=== PATIENT | male | born 1960 | race Caucasian/White ===

== ENCOUNTER 2016-08-02 15:01 | Emergency (ER) | payer OTHER ==
[~2016-08-02 15:01] MED LIST: AMLODIPINE BESY10 M1 PO; BACTRIM DS TAB1 EACH PO; MEDROL4 M2 PO; METOPROLOL TAR100 M1 PO; NAPROXEN500 M2 PO; NASAL DECONGEST30 M2 PO; TEGRETOL XR200 M1 PO; VITAMIN B-1100 MG PO
--- NOTE | 2016-08-02 15:03 | ED AMS/SEIZURE/WEAK/DIZZY ---
History of Present Illness General Chief Complaint: Seizure Stated Complaint: BIBA FOR SEIZURE Source: patient, old records, EMS Exam Limitations: no limitations Vital Signs & Intake/Output Vital Signs & Intake/Output Vital Signs Date Time Temp Pulse Resp B/P B/P Pulse O2 O2 Flow FiO2 Mean Ox Delivery Rate 08/02 1712 98.6 99 16 149/83 08/02 1710 97.6 99 16 149/83 98 Nasal 2.0L Cannula 08/02 1602 99 Nasal 2.0L Cannula 08/02 1600 107 16 170/79 98 Nasal 2.0L Cannula 08/02 1520 Room Air 08/02 1505 96.6 107 20 162/80 96 Room Air Allergies Coded Allergies: phenytoin (From DILANTIN) (Severe, MIGRAINES 03/31/16) Reconcile Medications Amlodipine Besylate 10 MG TABLET 1 TAB PO DAILY BP (Reported) Carbamazepine (Tegretol XR) 200 MG TAB.ER.12H 1 TAB PO BID BP (Reported) Methylprednisolone. (Medrol) 4 MG TAB.DS.PK 1 DP PO AD PAIN 6 on day 1 then reduce by one tablet daily until gone Metoprolol Tartrate 100 MG TABLET 1 TAB PO BID BP (Reported) Naproxen 500 MG TABLET 1 TAB PO BID GERD (Reported) Pseudoephedrine HCl (Nasal Decongestant) 30 MG CAPSULE 1 TAB PO Q6P PRN NASAL CONGESTION Sulfamethoxazole/Trimethoprim (Bactrim Ds Tablet) 800 MG-160 MG TABLET 1 TAB PO BID sinuses Thiamine HCl (Vitamin B-1) 100 MG TABLET 1 TAB PO DAILY VITAMIN (Reported) Triage Nurses Notes Reviewed? yes Onset: Abrupt Duration: minute(s):, better Timing: recent history Injury Environment: street Severity: mild, moderate Severity Numbers: 5 No Modifying Factors: none Associated Symptoms: DENIES HPI: 55-year-old male with known seizure disorder on Tegretol Depakote presents after he had a witnessed seizure on a bus. On arrival patient has no recollection of this incident. He denies any bladder incontinence he did not bite his tongue he is otherwise without any complaints on arrival. No chest pain shortness of breath headache vision changes. Patient cannot recall when his last seizure was ceased states she's been compliant with his medication. He smokes and his last drink of alcohol was last night. No history of withdrawal seizures in the past. No abdominal pain he is otherwise without any complaints at this time. No recent fall or head trauma (KATHYA BOUCHER) Past History Travel History Traveled to [place] past 21 day No Medical History Any Pertinent Medical History? 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 No (KATHYA BOUCHER) Review of Systems Review of Systems Constitutional: Reports: see HPI. All Other Systems: Reviewed and Negative Comments Review of systems: See HPI, All other systems negative. Constitutional, no chills no fever, no malaise HEENT: No visual changes no sore throat no congestion, no ear pain Cardiovascular: No chest pain , no palpitation Skin: no rashes, no change in skin Respiratory: No dyspnea no cough no sputum no hemoptysis GI: No nausea no vomiting, no diarrhea, : No dysuria Muscle skeletal: No joint pain, no joint swelling, no back pain, no neck pain, Neurologic: No numbness no confusion, no headache Psych: No stresS Heme/endocrine: No bruising Immunology: No lymphadenopathy (KATHYA BOUCHER) Physical Exam Physical Exam General Appearance: well developed/nourished, alert, awake Comments: Well-developed well-nourished person in no acute distress HEENT: Normal EENT exam; PERRL, EOMI, no nystagmus. HEAD is atraumatic. moist mucous membranes. Neck: Supple, no lymphadenopathy, normal range of motion without pain or tenderness Back: Nontender, no CVA tenderness. Full range of motion Cardiovascular: Regular rate and rhythms no murmurs rubs or gallops, normal JVP Respiratory: Chest nontender.There were no bony deformities, no asymmetry. No respiratory distress. Patient speaking in full complete sentences. Breath sounds clear to auscultation bilaterally: NO W/R/R Abdomen: Soft, nontender nondistended, no appreciable organomegaly. Normal bowel sounds. No rebound/guarding, No appreciable enlargement of the abdominal aorta, No ascites. Extremity: No edema, full range of motion of extremities, normal and equal pulses bilaterally, 5 out of 5 strength noted to bilateral upper and lower extremities Neuro: Alert oriented x3, motor sensory normal, cranial nerves II through XII grossly intact. There were no obvious focal neurologic abnormalities. Skin: No appreciable rash on exposed skin, skin is warm and dry. Psych: Mood and affect is normal, memory and judgment is normal. Core Measures ACS in differential dx? No CVA/TIA Diagnosis: No Severe Sepsis Present: No Septic Shock Present: No (KATHYA BOUCHER) Progress Differential Diagnosis: arrythmia, alcohol intoxication, CVA/stroke, electrolyte imbalance, hypoglycemia, meningitis, subarachnoid Hem., aspiration pna Diagnostic Imaging: Viewed by Me: Radiology Read. Discussed w/RAD: Radiology Read. Radiology Impression: PATIENT: KATY REDMOND PRESENT AGE: 55 PATIENT ACCOUNT NO: [id number] : 61 LOCATION: [facility] ORDERING PHYSICIAN: KATHYA ROBERTS SERVICE DATE: 08/02/16 EXAM TYPE: RAD - XRY- PORTABLE CHEST XRAY EXAMINATION: XR PORTABLE CHEST CLINICAL INFORMATION: Seizure COMPARISON: None TECHNIQUE: Portable AP view of the chest was obtained. FINDINGS : No convincing evidence for an acute process. No are grossly clear. Low lung volumes. IMPRESSION: Low lung volumes. No convincing evidence for an acute process DICTATED BY: CASPER GARCIA MD DATE/TIME DICTATED:08/02/161655 BARREL PAINTER:[place] DATE/TIME TRANSCRIBED:08/02/161655 CONFIDENTIAL, DO NOT COPY WITHOUT APPROPRIATE AUTHORIZATION. <Electronically signed in Other Vendor System> SIGNED BY: CASPER GARCIA MD 08/02/16 1700 Initial ED EKG: none Hand-Off Endorsed To: JUAN DUQUE MD Endorsed Time: 1999 Pending: consult, labs (KATHYA BOUCHER) Plan of Care: Orders Procedure Date/time Status Regular Diet 08/03 B Active CIWA 08/02 1732 Active URINE DRUG SCREEN FOR ER ONLY 08/02 1624 Active Add-on Test (ER Only) 08/02 1513 Active FingerStick- Glucose 08/02 1512 Active Saline Lock 08/02 1507 Active TEGRETOL LEVEL 08/02 1507 Complete PROLACTIN 08/02 1507 Complete ETHANOL 08/02 1507 Complete DEPAKOTE LEVEL 08/02 1507 Complete COMPREHENSIVE METABOLIC PANEL 08/02 1507 Complete CBC WITHOUT DIFFERENTIAL 08/02 1507 Complete Current Medications Sig/Festus Start time Last Medication Dose Stop Time Status Admin Phenytoin 1,900 MG ONCE ONE 08/02 1744 CAN (Dilantin) 08/02 1745 Laboratory Tests 08/02/16 1515: Anion Gap 13, Estimated GFR > 60, BUN/Creatinine Ratio 27.3 H, Glucose 138 H, Calcium 9.2, Total Bilirubin 0.6, AST 42, ALT 53, Alkaline Phosphatase 88, Total Protein 7.5, Albumin 4.4, Globulin 3.1, Albumin/Globulin Ratio 1.4, Prolactin 24.0 H, CBC w Diff NO MAN DIFF REQ, RBC 3.77 L, MCV 99.9 H, MCH 34.5 H, RDW 13.6, MPV 6.8 L, Gran % 69.9, Lymphocytes % 15.1 L, Monocytes % 14.1 H, Eosinophils % 0.6, Basophils % 0.3, Absolute Granulocytes 4.1, Absolute Lymphocytes 0.9 L, Absolute Monocytes 0.8 H, Absolute Eosinophils 0, Absolute Basophils 0, PUBS MCHC 34.5, Valproic Acid < 10.0 L, Carbamazepine < 3.0 L, Serum Alcohol < 10.0 Labs ordered old for continued IV fluids RUNNING, case d/w dr duque 08/02/2016 3:57:53 PM patient was noted to be seizing Ativan 2 mg IV ordered, chest x-ray ordered. Pt came to post ictal within a [address] duque at bedside 08/02/2016 4:52:02 PM patient has had no further seizure activity at this time pending x-ray]]] Call placed to the patient's neurologist DR hutchison 08/02/2016 6:09:56 PM still pending callback from neurology 08/02/2016 6:53:15 PM case discussed with Dr. SEGURA covering for Dr. HUTCHISON- advised to load with 1000 mg Depakote if patient is stable enough to be discharged home 2000 pt resting comfrotably, will continue tomonoitor as pt live alone at home, case d/w and signed out to dr duque pending reeval PATIENT: KATY REDMOND PRESENT AGE: 55 PATIENT ACCOUNT NO: [id number] : 61 LOCATION: [facility] ORDERING PHYSICIAN: KATHYA ROBERTS SERVICE DATE: 04/19/17-1556 EXAM TYPE: RAD - XRY-PORTABLE CHEST XRAY EXAMINATION: XR PORTABLE CHEST CLINICAL INFORMATION: Seizure COMPARISON: None TECHNIQUE: Portable AP view of the chest was obtained. FINDINGS: No convincing evidence for an acute process. No are grossly clear. Low lung volumes. IMPRESSION: Low lung volumes. No convincing evidence for an acute process DICTATED BY: CASPER GARCIA MD DATE/TIME DICTATED:08/02/161655 BARREL PAINTER:[place] DATE/TIME TRANSCRIBED:08/02/161655 CONFIDENTIAL, DO NOT COPY WITHOUT APPROPRIATE AUTHORIZATION. <Electronically signed in Other Vendor System> SIGNED BY: CASPER GARCIA MD 08/02/16 1700 (KATHYA BOUCHER) 7:53 PM FOR REEVALUATION AFTER JACKY ATINGE. (JUAN DUQUE MD) Departure Departure Disposition: HOME OR SELF CARE Condition: Stable Clinical Impression Primary Impression: Seizure Referrals: UNKNOWN Additional Instructions: Follow-up with your neurologist tomorrow. Take your medication as prescribed. Return anytime sooner with any concerns. Departure Forms: Customer Survey General Discharge Information (KATHYA BOUCHER) PA/ENVIRONMENTAL TECH Co-Sign Statement Statement: ED Attending supervision documentation- [X] I saw and evaluated the patient. I have also reviewed all the pertinent lab results and diagnostic results. I agree with the findings and the plan of care as documented in the PA's/ENVIRONMENTAL TECH's documentation. [X] I have reviewed the ED Record and agree with the PA's/ENVIRONMENTAL TECH's documentation. [] Additions or exceptions (if any) to the PAs/ENVIRONMENTAL TECH's note and plan are summarized below: [] (JUAN DUQUE MD)
[2016-08-02 16:13] LABS: ABSOLUTE BASOPHIL COUNT 0 /CUMM (0.0-0.2); ABSOLUTE EOSINOPHIL COUNT 0 /CUMM (0.0-0.7); ABSOLUTE GRANULOCYTE CT 4.1 /CUMM (1.4-6.5); ABSOLUTE LYMPH COUNT 0.9 /CUMM (1.2-3.4); ABSOLUTE MONOCYTE COUNT 0.8 /CUMM (0.10-0.60); BASOPHIL % 0.3 % (0.0-2.0); EOSINOPHIL % 0.6 % (0-5); GRANULOCYTE % 69.9 % (42.2-75.2); HEMATOCRIT 37.7 % (42-52); MEAN CORPUSCULAR HGB 34.5 PG (27.0-31.0); MEAN CORPUSCULAR HGB CONC 34.5 G/DL (33.0-37.0); MEAN CORPUSCULAR VOLUME 99.9 FL (80.0-94.0); MEAN PLATELET VOLUME 6.8 FL (7.4-10.4); PLATELET COUNT 313 /CUMM (130-400); RBC DISTRIBUTION WIDTH 13.6 % (11.5-14.5); RED BLOOD CELL CT 3.77 /CUMM (4.70-6.10); WHITE BLOOD CELL COUNT 5.9 /CUMM (4.8-10.8)
--- NOTE | 2016-08-02 17:00 | RADIOLOGY REPORT ---
EXAMINATION: XR PORTABLE CHEST CLINICAL INFORMATION: Seizure COMPARISON: None TECHNIQUE: Portable AP view of the chest was obtained. FINDINGS: No convincing evidence for an acute process. No are grossly clear. Low lung volumes. IMPRESSION: Low lung volumes. No convincing evidence for an acute process
[2016-08-02 21:39] VITALS: BP 147/82
== END 2016-08-02 22:44 ==
LOC: ERH 15:01
PROVIDERS: Physician Assistant Medical
DX: R56.9 Unspecified convulsions (principal)
CPT/HCPCS: 80307; 96361; 96374; G0480

== ENCOUNTER 2016-08-22 09:56 | Inpatient (IN) | payer OTHER ==
[~2016-08-22] VITALS: Ht 172.7 cm; Wt 102.1 kg
[2016-08-22] VITALS (9 sets, daily range): BP systolic 135–172; BP diastolic 83–102
--- NOTE | 2016-08-22 10:08 | NUR ---
PT TO ED C/O "I FEEL LIKE MY HEAD IS IN A FOG". ALSO C/O FEELING SHAKY. PT WITH H/O SEIZURES AND HEAVY ETOH USE. PT STATES LAST DRINK WAS YESTERDAY. PT IS SCHEDULED TO GO TO DETOX TOMORROW.
--- NOTE | 2016-08-22 10:17 | NUR ---
PT AMBULATED TO ROOM 8 WITH STRONG STEADY GAIT. SECURITY AT BEDSIDE FOR WANDING AND PT CHANGING INTO BLUE SCRUBS
--- NOTE | 2016-08-22 10:22 | NUR ---
DR LIN AT BEDSIDE
--- NOTE | 2016-08-22 10:27 | ED AMS/SEIZURE/WEAK/DIZZY ---
History of Present Illness General Chief Complaint: General Adult Stated Complaint: SAMUEL,SHAKING Source: patient Exam Limitations: confusion Vital Signs & Intake/Output Vital Signs & Intake/Output Vital Signs Date Time Temp Pulse Resp B/P B/P Pulse O2 O2 Flow FiO2 Mean Ox Delivery Rate 08/22 1409 96.8 65 20 143/92 95 Room Air 08/22 1258 96.6 67 20 135/89 94 Room Air 08/22 1255 98.3 67 20 135/89 / 1144 Room Air 08/22 1143 96.5 73 14 143/89 08/22 1142 96.5 73 14 143/89 94 Room Air 08/22 1048 98.9 68 18 155/102 08/22 1024 68 155/102 08/22 1007 97.1 66 20 169/108 97 Room Air Allergies Coded Allergies: phenytoin (From DILANTIN) (Severe, MIGRAINES 03/31/16) Reconcile Medications Amlodipine Besylate (Norvasc) 10 MG TABLET 1 TAB PO DAILY htn (Reported) Divalproex Sodium (Depakote ER) 500 MG TAB.ER.24H 750 MG PO QPM seizures ( Reported) Gabapentin (Neurontin) 300 MG CAPSULE 1 CAP PO TID NEUROPATHY (Reported) Ketoconazole 2 % CREAM..G. 1 KARI TOP BID SKIN HEALTH (Reported) apply to affected area(s) Lorazepam (Ativan) 0.5 MG TABLET 1 TAB PO SI Alcohol withdrawal Please take 1 mg (2 tabs) on 08/25/16 PM take 0.5 mg (1 tab) on 08/26/16 am take 0.5 mg (1 tab) on 08/26/16 PM take 0.5 mg (1 tab) on 08/27/16 then stop Metoprolol Tartrate 100 MG TABLET 1 TAB PO BID BP (Reported) Naproxen 500 MG TABLET 1 TAB PO BID GERD (Reported) Pseudoephedrine HCl (Nasal Decongestant) 30 MG CAPSULE 1 TAB PO Q6P PRN NASAL CONGESTION Triage Note: PT TO ED C/O "I FEEL LIKE MY HEAD IS IN A FOG". ALSO C/O FEELING SHAKY. PT WITH H/O SEIZURES AND HEAVY ETOH USE. PT STATES LAST DRINK WAS YESTERDAY. PT IS SCHEDULED TO GO TO DETOX TOMORROW. Triage Nurses Notes Reviewed? yes Onset: Abrupt Duration: day(s): (1) Timing: multiple episodes today Injury Environment: home Severity: mild, moderate No Modifying Factors: none Associated Symptoms: SHAKING, NAUSEA, VOMITING, CONFUSION HPI: 55-year-old male history of hypertension, TBI, seizure disorder, alcohol abuse presents from [facility] for chief complaint of not feeling well. He reports feeling fine, having episodes of vomiting at home. He feels very shaky. Last alcoholic drink was yesterday afternoon. He states he's been drinking heavier in the last week. He drinks 4 to wipe. Per day. Denies any other alcohol use. Denies any drug use. He is not suicidal or homicidal. He is alert awake and oriented to day. He is aware of his birthday but states that he just doesn't feel well. He has not gone without alcohol was 4-5 years. He is due to go to inpatient detox at [place] tomorrow. He reports having falls in the last several weeks but doesn't remember how many or when. Past History Travel History Traveled to [facility] past 21 day No Medical History Any Pertinent Medical History? 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 No Review of Systems Review of Systems Constitutional: Denies: see HPI, fever. EENTM: Reports: no symptoms. Respiratory: Denies: cough, sputum production. Cardiovascular: Denies: chest pain, palpitations, peripheral edema. GI: Reports: nausea, vomiting. Denies: abdominal pain. Genitourinary: Denies: dysuria, frequency. Musculoskeletal: Denies: back pain. Skin: Reports: no symptoms. Neurological/Psychological: Reports: anxiety, depressed. Hematologic/Endocrine: Denies: bruising, bleeding, polyuria, polydipsia. Immunologic/Allergic: Denies: splenectomy. All Other Systems: Reviewed and Negative Physical Exam Physical Exam General Appearance: well developed/nourished, alert, awake, anxious, mild distress, moderate distress, obese Head: atraumatic, normal appearance Eyes: Bilateral: normal appearance, PERRL. Ears, Nose, Throat: normal pharynx, hearing grossly normal Neck: normal inspection, supple, full range of motion Respiratory: normal breath sounds, chest non-tender, no respiratory distress Cardiovascular: regular rate/rhythm Core Measures ACS in differential dx? No CVA/TIA Diagnosis: No Severe Sepsis Present: No Septic Shock Present: No Progress Differential Diagnosis: arrythmia, alcohol intoxication, CVA/stroke, drug intoxication, intracranial Hem., intracranial mass/tumor, seizure disorder, ALCOHOL WITHDRAWAL, SUBDURAL Plan of Care: Orders Procedure Date/time Status Heart Healthy Diet 08/22 D Active Patient Data 08/22 1454 Active Admit to inpatient 08/22 1447 Active Vital Signs 08/22 1447 Active Code Status 08/22 1447 Active Pathway - chart 08/22 1443 Active Add-on Test (ER Only) 08/22 1208 Active CASE MANAGEMENT CONSULT 08/22 1135 Active CIWA 08/22 1049 Active PROLACTIN 08/22 1045 Complete EKG 08/22 1044 Active PARTIAL THROMBOPLASTIN TIME 08/22 1028 Complete PROTHROMBIN TIME 08/22 1028 Complete Telemetry/Count Team Clerk 08/22 1027 Active URINE DRUGS OF ABUSE 08/22 1027 Active URINALYSIS 08/22 1027 Active TROPONIN LEVEL 08/22 1027 Complete AMMONIA 08/22 1027 Complete MAGNESIUM 08/22 1027 Complete ETHANOL 08/22 1027 Complete DEPAKOTE LEVEL 08/22 1027 Complete COMPREHENSIVE METABOLIC PANEL 08/22 1027 Complete CREATINE PHOSPHOKINASE 08/22 1027 Complete CBC WITHOUT DIFFERENTIAL 08/22 1027 Complete Current Medications Sig/Festus Start time Last Medication Dose Stop Time Status Admin Lorazepam 1 MG Q12H 08/24 0000 UNVr (Ativan) 08/24 1201 Thiamine HCl 100 MG DAILY 08/23 1000 UNVr (Vitamin B1) 08/25 1001 Lorazepam 1.5 MG Q6 08/23 0600 UNVr (Ativan) 08/23 1801 Folic Acid 1 MG DAILY 08/22 1443 UNVr (Folic Acid) 08/24 1001 Lorazepam 2 MG Q6 08/22 1443 UNVr (Ativan) 08/23 0001 Multivitamins 1 TAB DAILY 08/22 1443 UNVr (Theragran Vitamins) Magnesium Sulfate 1 GM ONCE ONE 08/22 1130 AC 08/22 (Mag Sulfate in D5) 08/22 1529 1205 Dextrose/Water 100 ML (D5W) Laboratory Tests 08/22/16 1045: Anion Gap 9, Estimated GFR > 60, BUN/Creatinine Ratio 18.8, Glucose 121 H, Calcium 9.6, Magnesium 1.4 L, Total Bilirubin 0.5, AST 42, ALT 51, Alkaline Phosphatase 86, Ammonia < 9 L, Creatine Kinase 180 H, Troponin I < 0.01, Total Protein 6.4, Albumin 3.7, Globulin 2.7, Albumin/Globulin Ratio 1.4, Prolactin 7.1, PT 10.3, INR 0.98, APTT 30, CBC w Diff NO MAN DIFF REQ, RBC 3.51 L, MCV 99.3 H, MCH 34.8 H, RDW 14.4, MPV 6.6 L, Gran % 69.9, Lymphocytes % 15.8 L, Monocytes % 10.4 H, Eosinophils % 3.7, Basophils % 0.2, Absolute Granulocytes 3.7, Absolute Lymphocytes 0.8 L, Absolute Monocytes 0.6, Absolute Eosinophils 0.2, Absolute Basophils 0, PUBS MCHC 35.0, Valproic Acid 21.8 L, Serum Alcohol < 10.0 08/22/16 1028: Troponin I Cancelled, Valproic Acid Cancelled 11:45 AM [facility] CONSULT PLACED FOR INPATIENT DETOX. 1:12 PM [facility]. PATIENT STILL FEELS FOGGY. LESS TREMORS. (RILEY GONSALEZ,JUAN) Diagnostic Imaging: Viewed by Me: CT Scan. Discussed w/RAD: CT Scan. Radiology Impression: PATIENT: KATY REDMOND PRESENT AGE: 55 PATIENT ACCOUNT NO: [id number] : 61 LOCATION: [facility] ORDERING PHYSICIAN: JUAN LIN MD SERVICE DATE: 08/22/16 EXAM TYPE: CAT - CT HEAD WO IV CONTRAST EXAMINATION: CT HEAD WITHOUT CONTRAST CLINICAL INFORMATION: Altered mental status. Alcohol abuse. Reported falls. Rule out intracranial bleed. COMPARISON: None TECHNIQUE: Contiguous axial imaging was performed from the skull base to vertex without intravenous administration of contrast. DLP: 627 mGy-cm FINDINGS: There is no evidence of acute intracranial hemorrhage or territorial infarction. No abnormal mass effect or midline shift is seen. Strange to white matter differentiation is well preserved. No extra-axial fluid collections are identified. Chronic inflammation is present at the left inferior frontal lobe. Small focus of chronic encephalomalacia is also present at the right occipital lobe. Aside from very mild ex vacuo dilatation of the anterior horn of the left lateral ventricle, the ventricles are normal in size. Calcific atherosclerosis is present within the cavernous segments of the internal carotid arteries. Chronic postsurgical changes are present at the frontal sinuses bilaterally. Frontal sinuses and left ethmoid air cells are partially opacified. There is chronic periosteal thickening in this region. There is a small defect in the left lamina papyracea. There is a healed fracture at the left orbital roof. Mastoid air cells are clear on the right. There is limited pneumatization of the left mastoid air cells. No acute fractures are identified. Mild soft tissue thickening over the scalp posteriorly is also likely chronic in nature. No acute scalp contusions are identified. IMPRESSION: No acute intracranial pathology. Chronic encephalomalacia in the left inferior frontal lobe with postsurgical changes at the frontal lobes and healed fractures of the left orbital roof and lamina papyracea. Chronic mucosal thickening and surrounding osteitis are evident at the left ethmoid air cells and at the frontal sinuses. DICTATED BY: PETAR LAWRENCE MD DATE/TIME DICTATED:08/22/161112 CNMT:[place] DATE/TIME TRANSCRIBED:08/22/161112 CONFIDENTIAL, DO NOT COPY WITHOUT APPROPRIATE AUTHORIZATION. <Electronically signed in Other Vendor System> SIGNED BY: PETAR LAWRENCE MD 08/22/161122 Initial ED EKG: NSR, artifact baseline Rhythm Strip: normal sinus rhythm Departure Departure Disposition: STILL A PATIENT Condition: Stable Clinical Impression Primary Impression: Alcohol withdrawal Referrals: ROBINA CAN MD (PCP/Family) Departure Forms: Customer Survey General Discharge Information Prescriptions: Current Visit Scripts Lorazepam (Ativan) 1 TAB PO SI #5 TAB Please take 1 mg (2 tabs) on 08/25/16 PM take 0.5 mg (1 tab) on 08/26/16 am take 0.5 mg (1 tab) on 08/26/16 PM take 0.5 mg (1 tab) on 08/27/16 then stop Admission Note Spoke With: ANDRE BOYD MD Documentation of Exam: Documentation of any treatments & extenuating circumstances including Concerns Regarding Discharge (functional status, medication knowledge or non-compliance, living conditions, etc.) that warrant an admission rather than observation: [ CIWA MONITORING, ATIVAN TAPER, DEPAKOTE ADMINISTRATION, SEIZURE PRECAUTIONS, ] Critical Care Note Critical Care Note Critical Care Time: mins:
--- NOTE | 2016-08-22 10:32 | NUR ---
PT TO CAT SCAN VIA [facility]
--- NOTE | 2016-08-22 10:45 | NUR ---
IV EST #20 LH PT MEDICATED PER EMAR WITH ATIVAN AND ZOFRAN
--- NOTE | 2016-08-22 10:50 | NUR ---
SAAD DRAWN AND SENT TO LAB
[2016-08-22 11:03] LABS: ABSOLUTE BASOPHIL COUNT 0 /CUMM (0.0-0.2); ABSOLUTE EOSINOPHIL COUNT 0.2 /CUMM (0.0-0.7); ABSOLUTE GRANULOCYTE CT 3.7 /CUMM (1.4-6.5); ABSOLUTE LYMPH COUNT 0.8 /CUMM (1.2-3.4); ABSOLUTE MONOCYTE COUNT 0.6 /CUMM (0.10-0.60); BASOPHIL % 0.2 % (0.0-2.0); EOSINOPHIL % 3.7 % (0-5); GRANULOCYTE % 69.9 % (42.2-75.2); HEMATOCRIT 34.9 % (42-52); MEAN CORPUSCULAR HGB 34.8 PG (27.0-31.0); MEAN CORPUSCULAR VOLUME 99.3 FL (80.0-94.0); MEAN PLATELET VOLUME 6.6 FL (7.4-10.4); PLATELET COUNT 177 /CUMM (130-400); RBC DISTRIBUTION WIDTH 14.4 % (11.5-14.5); RED BLOOD CELL CT 3.51 /CUMM (4.70-6.10); WHITE BLOOD CELL COUNT 5.3 /CUMM (4.8-10.8)
[2016-08-22 11:15] LABS: PT 10.3 SEC (9.4-12.5); PTT 30 SEC (25-37)
--- NOTE | 2016-08-22 11:23 | CT SCAN REPORT ---
EXAMINATION: CT HEAD WITHOUT CONTRAST CLINICAL INFORMATION: Altered mental status. Alcohol abuse. Reported falls. Rule out intracranial bleed. COMPARISON: None TECHNIQUE: Contiguous axial imaging was performed from the skull base to vertex without intravenous administration of contrast. DLP: 627 mGy-cm FINDINGS: There is no evidence of acute intracranial hemorrhage or territorial infarction. No abnormal mass effect or midline shift is seen. Strange to white matter differentiation is well preserved. No extra-axial fluid collections are identified. Chronic inflammation is present at the left inferior frontal lobe. Small focus of chronic encephalomalacia is also present at the right occipital lobe. Aside from very mild ex vacuo dilatation of the anterior horn of the left lateral ventricle, the ventricles are normal in size. Calcific atherosclerosis is present within the cavernous segments of the internal carotid arteries. Chronic postsurgical changes are present at the frontal sinuses bilaterally. Frontal sinuses and left ethmoid air cells are partially opacified. There is chronic periosteal thickening in this region. There is a small defect in the left lamina papyracea. There is a healed fracture at the left orbital roof. Mastoid air cells are clear on the right. There is limited pneumatization of the left mastoid air cells. No acute fractures are identified. Mild soft tissue thickening over the scalp posteriorly is also likely chronic in nature. No acute scalp contusions are identified. IMPRESSION: No acute intracranial pathology. Chronic encephalomalacia in the left inferior frontal lobe with postsurgical changes at the frontal lobes and healed fractures of the left orbital roof and lamina papyracea. Chronic mucosal thickening and surrounding osteitis are evident at the left ethmoid air cells and at the frontal sinuses.
--- NOTE | 2016-08-22 12:37 | NUR ---
08/22 CASE MGMT- ATTEMPTED REQUEST FOR [facility] AUTH ONLINE X2 WITH NO SUCCESS, RUNNING VERY SLOW AND UNABLE TO UPLOAD AND FINISH KARI. CALL PLACED TO [facility] AND SPOKE WITH LEILA STATES THEY ARE EXPERIENCING AN ISSUE WITH [facility] WEBSITE AND ARE IN THE PROCESS OF FIXING IT AND ARE REQUESTING PROVIDERS TO WAIT UNTIL WEBSITE IS FIXED. LEILA STATES CAN TRY WEBSITE AGAIN IN A FEW HOURS AND IF ISSUE STILL PERSISTS CAN CONTACT [facility] AGAIN. CASE MGMT WILL CONTINUE TO FOLLOW.
--- NOTE | 2016-08-22 13:46 | NUR ---
CT P AUTH DONE AWAITING AUTH APPROVAL. AWAITING APPROVAL. CASE MGMT WILL CONTINUE TO FOLLOW.
--- NOTE | 2016-08-22 14:04 | NUR ---
UNABLE TO VERIFY HOME MEDS DUE TO CURRENT CIRCUMSTATNCES
--- NOTE | 2016-08-22 14:14 | NUR ---
PT MEDICATED WITH ATIVAN 1MG PO PER EMAR. PT REPORTS BEING THIRSTY. THIS RN PROVIDED PT WITH WATER.
--- NOTE | 2016-08-22 14:21 | NUR ---
THIS RN CALLED DIETARY TO ORDER PT DIET TRAY
--- NOTE | 2016-08-22 14:39 | NUR ---
08/22 CASE MGMT- PT APPROVED [facility] AUTH #[id number] FOR 6 DAYS FROM 08/22/16 TO 08/27/16. DR LIN AND ADMITTING AWARE.
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
--- NOTE | 2016-08-22 15:04 | NUR ---
PT PROVIDED WITH LUNCH TRAY
--- NOTE | 2016-08-22 15:27 | NUR ---
PT MEDICATED WITH ATIVAN 2MG, MULTI-VITAMIN AND FOLIC ACID. PT EATING HIS LUNCH.
[2016-08-22] MEDS ORDERED: DEPAKOTE ER500 M1 PO (15:51)
[2016-08-22] MEDS ORDERED: NEURONTIN300 M1 PO (16:03)
[2016-08-22] MEDS ORDERED: NORVASC10 M1 PO (16:17)
--- NOTE | 2016-08-22 16:21 | NUR ---
URINE TRIO SENT TO LAB.
--- NOTE | 2016-08-22 17:22 | NUR ---
PT RESTING ON STRETCHER, DENIES ANY NEEDS. VSS, CIWA 4. LOVENOX ADMINISTERED AND ATIVAN 1MG PO GIVEN PER EMAR.
--- NOTE | 2016-08-22 20:17 | NUR ---
PT HAS BED ASSIGNMENT 228-1. RN NOTIFIED.
--- NOTE | 2016-08-22 20:40 | NUR ---
REPORT GIVEN TO BRIGITTE WADDELL TO [facility], [facility] CALLED FOR TRANSPORT.
--- NOTE | 2016-08-22 22:52 | Admission Certification ---
Admission Certification Certification Statement - As attending physician, I certify that at the time of - admission, based on clinical presentation, severity of - symptoms, need for further diagnostic testing and - therapeutic interventions, and risk of adverse outcomes - without in-hospital treatment, in my clinical assessment, - this patient requires an acute hospital stay for a minimum - of two nights or longer. I have also considered psychsocial - factors such as support system, advanced age, financial - issues, cognitive issues, and failed out-patient treatments, - past re-admission history, safety of patient, and lack of - compliance as applicable. Specific rationale supporting this admission is: Patient presents for detox- CIWA 17 and h/o seizure disorder. Admit for alcohol detox, CIWA/Ativan protocol.
[2016-08-23] VITALS (11 sets, daily range): BP systolic 100–180; BP diastolic 60–110
--- NOTE | 2016-08-23 00:19 | NUR ---
PT ARRIVED TO FLOOR AT 2102 VIA STRETCHER. ALERT/ORIENTED CONFUSED AT TIMES. CIWA SCORE 4. FALL PRECAUTIONS IN PLACE, LUNGS CLEAR, ON RA, SKIN INTACT, NO DISTRESS, DENIES CHEST PAIN. NO COMPLIANTS AT THIS TIME, ORIENTED PT TO ROOM, CALL KRUGER AND STAFF. WILL MONITOR.
--- NOTE | 2016-08-23 06:38 | PN- Housestaff ---
REANNA GONSALEZ,MELVINA 08/23/16 0638: Subjective Follow-up For: alcohol detox Subjective: Pt was seen today, not oriented, slow to respond. However he was calm, his ciwa has been 0-3, he received 3 mg of po ativan in total, and has not been needing prn ativan. BP has been on the higher side (180/110), gave his amlodipine early, and told nurse to not give anymore than 10 mg a day. clonidine added. Lopressor was also given. building maintenance worker, Christine, on board, to help us with discharge planning. labs reviewed, k 3.6, mg 1.7. given 1x kdur and mg ox. Review of Systems Constitutional: Reports: see HPI. Objective Last 24 Hrs of Vital Signs/I&O Vital Signs Date Time Temp Pulse Resp B/P B/P Pulse O2 O2 Flow FiO2 Mean Ox Delivery Rate 08/23 0839 68 180/110 08/23 0832 68 180/110 08/23 0826 68 16 180/110 96 Room Air 08/23 0639 65 160/104 08/23 0628 98.1 65 18 160/104 95 Room Air 08/23 0600 64 18 160/104 08/23 0156 97.9 60 18 134/70 95 Room Air 05/ 0000 69 18 146/90 / 2239 69 146/90 / 2235 97.7 69 18 146/90 94 Room Air 08/22 2118 69 16 172/102 / 2109 98.1 69 18 172/102 93 Room Air 08/22 2030 96.8 66 16 142/90 / 2030 96.8 66 18 142/90 95 Room Air 08/22 1722 97.0 75 16 138/83 / 1722 97.0 75 16 138/83 95 Room Air / 1455 96.8 65 20 143/92 05/ 1409 96.8 65 20 143/92 95 Room Air 08/22 1258 96.6 67 20 135/89 94 Room Air / 1255 98.3 67 20 135/89 Intake & Output /10 1600 /10 0800 05/ 0000 Intake Total 200 120 Output Total 400 Balance -200 120 Intake, Oral 200 120 Number 0 0 Bowel Movements Output, Urine 400 Patient 102.058 kg Weight Physical Exam General Appearance: Alert, not oriented, slow to respond Cardiovascular: Regular Rate, Normal S1, Normal S2 Lungs: Clear to Auscultation, Normal Air Movement Abdomen: Normal Bowel Sounds, Soft, No Tenderness Extremities: trace edema on BL lower extremity Current Medications: Current Medications Sig/Festus Start time Last Medication Dose Route Stop Time Status Admin Acetaminophen 650 MG Q6P PRN 08/22 1500 AC PO Acetaminophen/ 1 TAB Q6P PRN 08/23 0537 AC Hydrocodone Bitart PO Acetaminophen/ 1 TAB Q6 08/22 1800 DC Hydrocodone Bitart PO Amlodipine Besylate 10 MG DAILY 08/23 1000 CAN PO Amlodipine Besylate 10 MG DAILY 08/23 1000 AC PO Amlodipine Besylate 10 MG ONCE ONE 08/23 0645 DC 08/23 PO 08/23 0646 0639 Carbamazepine 200 MG BID 08/22 2200 CAN PO Clonidine 0.2 MG TID PRN 08/23 1000 AC PO Divalproex Sodium 750 MG DAILY 08/23 1000 AC 08/23 PO 0832 Divalproex Sodium 750 MG ONCE ONE 08/22 1230 DC 08/22 PO 08/22 1231 1321 Enoxaparin Sodium 0 .STK-MED ONE 08/22 1720 DC SC Enoxaparin Sodium 40 MG DAILY 08/22 1623 AC 08/23 SC 0832 Folic Acid 0 .STK-MED ONE 08/22 1512 DC PO Folic Acid 1 MG DAILY 08/22 1443 AC 08/23 PO 08/24 1001 0832 Gabapentin 300 MG TID 08/22 2200 AC 08/23 PO 0832 Lorazepam 1 MG Q12H 08/24 0000 DC PO 08/24 1201 Lorazepam 1.5 MG Q6 08/23 0600 CAN PO 08/23 1801 Lorazepam 1 MG Q6 08/22 1800 AC 08/23 PO 0532 Lorazepam 0 .STK-MED ONE 08/22 1720 DC PO Lorazepam 0 Q1P PRN 08/22 1600 AC IV Lorazepam 0 .STK-MED ONE 08/22 1512 DC PO Lorazepam 2 MG Q6 08/22 1443 DC 08/22 PO 08/23 0001 1527 Lorazepam 0 .STK-MED ONE 08/22 1416 DC PO Lorazepam 1 MG ONE ONE 08/22 1415 DC 08/22 PO 08/22 1416 1414 Magnesium Oxide 400 MG ONE ONE 08/23 899 DC PO 08/23 900 Magnesium Sulfate 1 GM ONCE ONE 08/22 1130 DC 08/22 Dextrose/Water 100 ML IV 08/22 1529 1205 Metoprolol Tartrate 100 MG BID 08/22 2199 DC PO Metoprolol Tartrate 100 MG BID 08/22 2199 AC 08/23 PO 0832 Multivitamins 0 .STK-MED ONE 08/22 1512 DC PO Multivitamins 1 TAB DAILY 08/22 1443 AC 08/23 PO 0832 Oxycodone HCl 10 MG Q6P PRN 08/22 1500 AC PO Potassium Chloride 40 MEQ ONCE ONE 08/23 899 DC PO 08/23 09 Sodium Chloride 2 SPRAY Q4P PRN 08/22 1630 AC STEPHANIE Thiamine HCl 100 MG DAILY 08/23 1000 AC 08/23 PO 08/25 1001 0831 Last 24 Hrs of Lab/Talha Results Last 24 Hrs of Labs/Mics: Laboratory Tests 08/23/16 0610: Anion Gap 8, Estimated GFR > 60, BUN/Creatinine Ratio 18.6, Magnesium 1.7, CBC w Diff NO MAN DIFF REQ, RBC 3.51 L, MCV 100.9 H, MCH 34.7 H, RDW 13.8, MPV 7.1 L, Gran % 60.1, Lymphocytes % 20.1 L, Monocytes % 8.3, Eosinophils % 11.0 H, Basophils % 0.5, Absolute Granulocytes 3.1, Absolute Lymphocytes 1.0 L, Absolute Monocytes 0.4, Absolute Eosinophils 0.6, Absolute Basophils 0, PUBS MCHC 34.4 08/22/16 1618: Urine Opiates Screen < 100.00, Methadone Screen < 40, Barbiturate Screen < 60, Ur Phencyclidine Scrn < 6.00, Amphetamines Screen < 100, U Benzodiazepines Scrn < 85, Urine Cocaine Screen < 50, Urine Cannabis Screen < 5.00, Urine Color YEL, Urine Clarity CLEAR, Urine pH 7.0, Ur Specific [place] 1.020, Urine Protein NEG, Urine Ketones 15 H, Urine Nitrite NEG, Urine Bilirubin NEG, Urine Urobilinogen 0.2, Ur Leukocyte Esterase NEG, Urine Hemoglobin NEG, Urine Glucose NEG Assessment/Plan Assessment: This is a 55-year-old male with past medical history of alcohol abuse, seizures, TBI, hypertension, garcia puffy tumor, who presented to the [facility] for worsening confusion and was sent to the [facility] for further evaluation Vitals at the time of admission Temperature 96.8, blood pressure 141/78, respiration rate of 18, pulse rate of 78, saturation of 96% on room air Labs: Normal WBC, hemoglobin of 12.1, hematocrit of 38, Chemistries shows low magnesium of 1.4, ammonia level of less than 9, creatinine kinase of 128, rest of the chemistries within normal limits serum alcohol level less than 10, valproic acid level of 21.[address] nonsignificant for any intracranial trauma EKG showed normal sinus rhythm with lots of artifacts Assessment 1. Acute alcohol detox 2. Alcohol withdrawal 3. 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 History of TBI 5. 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 H/O HTN-on amlodipine and bb Plan Continue to monitor on general medicine floor PRN IV Ativan as per CIWA protocol Continue 1 mg by mouth Ativan every 6 Continue PO thiamine folate and multivitamin Appreciate SW consult Started clonidine 0.2 mg tid as needed for systolic bp > 160 Continue home amlodipine and lopressor Continue home depakote Continue home gabapentin replete electrolytes as needed Patient is not suicidal or homicidal The patient needs to be set up with an IOP program at [place] [facility] We will consider ENT evaluation as an outpatient he needs to be followed up with [facility] Regular diet DVT ppx with S/c lovenox Fc Problem List: 1. Alcohol withdrawal Pain Ratin Pain Location: none Pain Goal: Remain pain free Pain Plan: mild pp Tomorrow's Labs & Rationales: bep and mag for electrolyte repletement DVT/Prophylaxis: mechanical, pharmacological RIVAS ADEN 08/23/16 1203: Attending MD Review Statement Attending Statement Attending MD Statement: examined this patient, discuss w/resident/PA/HEAD WOOD GRINDER, agreed w/resident/PA/HEAD WOOD GRINDER, discussed with family, reviewed EMR data (avail), discussed with nursing, discussed with case mgmt, reviewed images, amended to note Attending Assessment/Plan: admitted for detox, cont current care, SW consult. clonidine for bp control. gi/ dvt prophyalxis full code
--- NOTE | 2016-08-23 07:38 | NUR ---
PT BP AT 0630 160/104 HR 65. DENIES CHEST PAIN, SOB OR NAUSEA. CIWA SCORE 3. PER SUDHAKAR LEE MD TO GIVE ONE TIME ORDER NORVASC PO. MED GIVEN. REPORT GIVEN TO ONCOMING RN TO RECHECK BP.
[2016-08-23 08:11] LABS: ABSOLUTE BASOPHIL COUNT 0 /CUMM (0.0-0.2); ABSOLUTE EOSINOPHIL COUNT 0.6 /CUMM (0.0-0.7); ABSOLUTE GRANULOCYTE CT 3.1 /CUMM (1.4-6.5); ABSOLUTE MONOCYTE COUNT 0.4 /CUMM (0.10-0.60); BASOPHIL % 0.5 % (0.0-2.0); GRANULOCYTE % 60.1 % (42.2-75.2); HEMATOCRIT 35.4 % (42-52); MEAN CORPUSCULAR HGB 34.7 PG (27.0-31.0); MEAN CORPUSCULAR HGB CONC 34.4 G/DL (33.0-37.0); MEAN CORPUSCULAR VOLUME 100.9 FL (80.0-94.0); MEAN PLATELET VOLUME 7.1 FL (7.4-10.4); PLATELET COUNT 150 /CUMM (130-400); RBC DISTRIBUTION WIDTH 13.8 % (11.5-14.5); RED BLOOD CELL CT 3.51 /CUMM (4.70-6.10); WHITE BLOOD CELL COUNT 5.2 /CUMM (4.8-10.8)
--- NOTE | 2016-08-23 11:25 | PN- Student ---
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 He admits to drinking 4 beers and an unquantified amount of vodka daily. His last visit to [facility] was 08/18/2016 for alcohol intoxication, where he was subsequently discharged with instructions to follow-up at [facility] for outpatient detox. His last drink was on 08/20/2016. Patient was incarcerated twice in the past for DUI. Past Medical History: Alcohol abuse, Seizures, Sinus Abcess, Mao Puffy Tumor, Hypertension, GERD Past Surgical History: Sinus abcess drainage (November 2015), Mao Puffy Tumor resection (November 2015) Family History: Non-Contributory Psychosocial History: Patient lives alone at home. He reports heavy alcohol use, and heavy tobacco smoking. Denies illicit drug use. Home Medication List: Amlodipine Besylate (Norvasc) 10 mg Tablet 1 Tab PO Daily (HTN) Divalproex Sodium (Depakote ER) 500 mg Tab.ER.24H 750 mg PO QPM (Seizures) Gabapentin (Neurontin) 300 mg Capsule 1 Cap. PO TID (Neuropathy) Metoprolol Tartrate 100 mg Tablet 1 Tab PO BID (BP) Naproxen 500 mg Tablet 1 Tab PO BID (GERD) Pseudoephedrine HCl 30 mg capsule 1 Tab PO Q6P PRN (Nasal Congestion) Compliance with Home Meds: Poor Allergies: Phenytoin (Severe, Migraines) Objective Objective: Vital Signs Date Time Temp Pulse Resp B/P B/P Pulse O2 O2 Flow FiO2 Mean Ox Delivery Rate 08/23 1030 130/90 08/23 0839 68 180/110 08/23 0832 68 180/110 08/23 0826 68 16 180/110 96 Room Air 08/23 0639 65 160/104 08/23 0628 98.1 65 18 160/104 95 Room Air 08/23 0600 64 18 160/104 08/23 0156 97.9 60 18 134/70 95 Room Air 08/23 0000 69 18 146/90 08/22 2239 69 146/90 08/22 2235 97.7 69 18 146/90 94 Room Air 08/22 2118 69 16 172/102 08/22 2109 98.1 69 18 172/102 93 Room Air 08/22 2030 96.8 66 16 142/90 08/22 2030 96.8 66 18 142/90 95 Room Air 08/22 1722 97.0 75 16 138/83 08/22 1722 97.0 75 16 138/83 95 Room Air 08/22 1455 96.8 65 20 143/92 08/22 1409 96.8 65 20 143/92 95 Room Air Intake & Output 08/23 1600 08/23 0800 05 0000 Intake Total 200 120 Output Total 400 Balance -200 120 Intake, Oral 200 120 Number 0 0 Bowel Movements Output, Urine 400 Patient 225 lb Weight Physical Exam General Appearance Alert, Oriented X3, No Acute Distress HEENT Atraumatic, PERRLA Neck Supple, No JVD, No Thyromegaly Lymphatic Axillary nl, Cervical nl Cardiovascular Regular Rate, Normal S1, Normal S2 Lungs Clear to Auscultation, Normal Air Movement Abdomen Normal Bowel Sounds, Soft, No Tenderness Extremities Trace edema of bilateral lower extremities Current Medications Sig/Festus Start time Last Medication Dose Route Stop Time Status Admin Acetaminophen 650 MG Q6P PRN 08/22 1500 AC PO Acetaminophen/ 1 TAB Q6P PRN 08/23 0537 AC Hydrocodone Bitart PO Acetaminophen/ 1 TAB Q6 08/22 1800 DC Hydrocodone Bitart PO Amlodipine Besylate 10 MG DAILY 08/23 1000 CAN PO Amlodipine Besylate 10 MG DAILY 08/23 1000 AC PO Amlodipine Besylate 10 MG ONCE ONE 08/23 0645 DC 08/23 PO 08/23 0646 0639 Carbamazepine 200 MG BID 08/22 2200 CAN PO Clonidine 0.2 MG TID PRN 08/23 1000 AC PO Divalproex Sodium 750 MG DAILY 08/23 1000 AC 08/23 PO 0832 Divalproex Sodium 750 MG ONCE ONE 08/22 1230 DC 08/22 PO 08/22 1231 1321 Enoxaparin Sodium 0 .STK-MED ONE 08/22 1720 DC SC Enoxaparin Sodium 40 MG DAILY 08/22 1623 AC 08/23 SC 0832 Folic Acid 0 .STK-MED ONE 08/22 1512 DC PO Folic Acid 1 MG DAILY 08/22 1443 AC 08/23 PO 08/24 1001 0832 Gabapentin 300 MG TID 08/22 2200 AC 08/23 PO 0832 Lorazepam 1 MG Q12H 08/24 0000 DC PO 08/24 1201 Lorazepam 1.5 MG Q6 08/23 0600 CAN PO 08/23 1801 Lorazepam 1 MG Q6 08/22 1800 AC 08/23 PO 0532 Lorazepam 0 .STK-MED ONE 08/22 1720 DC PO Lorazepam 0 Q1P PRN 08/22 1600 AC IV Lorazepam 0 .STK-MED ONE 08/22 1512 DC PO Lorazepam 2 MG Q6 08/22 1443 DC 08/22 PO 08/23 0001 1527 Lorazepam 0 .STK-MED ONE 08/22 1416 DC PO Lorazepam 1 MG ONE ONE 08/22 1415 DC 08/22 PO 08/22 1416 1414 Magnesium Oxide 400 MG ONE ONE 08/23 0900 DC PO 08/23 0901 Magnesium Sulfate 1 GM ONCE ONE 08/22 1130 DC 08/22 Dextrose/Water 100 ML IV 08/22 1529 1205 Metoprolol Tartrate 100 MG BID 08/22 2200 DC PO Metoprolol Tartrate 100 MG BID 08/22 2200 AC 08/23 PO 0832 Multivitamins 0 .STK-MED ONE 08/22 1512 DC PO Multivitamins 1 TAB DAILY 08/22 1443 AC 08/23 PO 0832 Oxycodone HCl 10 MG Q6P PRN 08/22 1500 AC PO Potassium Chloride 40 MEQ ONCE ONE 08/23 0900 DC PO 08/23 0901 Sodium Chloride 2 SPRAY Q4P PRN 08/22 1630 AC STEPHANIE Thiamine HCl 100 MG DAILY 08/23 1000 AC 08/23 PO 08/25 1001 0831 Assessment/Plan Assessment: Patient is a 55-year-old man with a past medical history significant for alcohol abuse, seizures, Mao Puffy tumor s/p ENT evaluation and resection in November 2015 at [facility], hypertension, and GERD who presented to [facility] with complaints of nausea, confusion, and alcohol detox. 1 - Alcohol Dependence & Withdrawal 2 - Hypertension 3 - History of Idiopathic Seizures 4 - History of MRSA Positive Sinus Abcess 5 - History of Mao Puffy Tumor Head CT - 08/22/2016 IMPRESSION: No acute intracranial pathology. Chronic encephalomalacia in the left inferior frontal lobe with postsurgical changes at the frontal lobes and healed fractures of the left orbital roof and lamina papyracea. Chronic mucosal thickening and surrounding osteitis are evident at the left ethmoid air cells and at the frontal sinuses. - - - - - - - - - - - - - - - - - - - - - - - - - - - - - - - - - - - - - - - - - - - - - - - - - - - - - - - - 1. Alcohol Dependence & Withdrawal. Patient presented to [facility] on 08/18/2016 with alcohol intoxication and was subsequently discharged with instructions to follow-up at [facility] for outpatient alcohol detox. On admission at [facility], patient reported feeling nauseated and confused. His last drink was on 08/20/2016. Blood alcohol level on admission was <10 and CIWA scoring was 17. CIWA scoring on 08/23/2016 is between 0-3. Patient is not suicidal or homicidal, and should be set up with an IOP program at [facility]. * PRN IV Ativan as per CIWA protocol * Ativan 1 mg PO Q12 * Multivitamin, Thiamine, Folate PO * stock worker and deliverer consult 2. Hypertension. Blood pressure on admission was 169/108. Currently at 180/ 110. * Amlodipine 10 mg PO Daily * Metoprolol 100 mg PO BID * Clonidine 0.2 mg TID for systolic BP > 160 3. History of Idiopathic Seizures. * Depakote 750 mg PO Daily * Gabapentin 300 mg PO TID 4. History of MRSA Positive Sinus Abcess. Treated via drainage and IV Vancomycin in November of 2015. Consider ENT evaluation as an outpatient with Dr. Mellisa M.D 5. History of Mao Puffy Tumor. Patient received ENT evaluation and resection of the tumor at [facility] in November of 2015. Consider ENT evaluation as an outpatient with Dr. Mellisa M.D Regular diet DVT prophylaxis subcutaneous Lovenox Full code
--- NOTE | 2016-08-23 20:18 | NUR ---
Referral received this morning via electronic border measurer and cutter. This patient is a 55 year old man, admitted to the hospital last evening for ETOH Detox. Patient was placed on the CIWA for observation of withdrawal; minimal symptoms noted and minimal medication administered. Patient is supported by [facility] housing support services; foster care case manager is Lane Romeo. Mr. Romeo was present here at the hospital early this am. Jairon had an appointment to begin detox in [place] for today, but he was beginning to develop symptoms at home, and has a history of seizures, so he presented to our Emergency Department. Admission has been authorized by [facility] through 08/27. Mr. Romeo reports that he believes Jairon is interested in residential treatment. I will follow patients progress; assess his interest and motivation in treatment and assist as needed.
--- NOTE | 2016-08-23 20:45 | Patient Discharge Instructions ---
Discharge Instructions General Discharge Information You were seen/treated for: Alcohol withdrawal Watch for these problems: Chest pain or difficulty breathing Seizure Vomiting Tremors Hallucinations Heart beating fast Special Instructions: Please follow up with your primary care physician Ashia Gonzalez MD within one week of discharge. Diet Continue normal diet: Yes Activity Full Activity/No Limits: Yes Additional ACTIVITY Info: As tolerated Acute Coronary Syndrome Inclusion Criteria At DC or during hospital stay patient has or had the following: ACS DIAGNOSIS No Discharge Core Measures Meds if any: Prescribed or Continued at Discharge Meds if any: NOT Prescribed or Continued at Discharge Congestive Heart Failure Inclusion Criteria At DC or during hospital stay patient has or had the following: CHF DIAGNOSIS No Discharge Core Measures Meds if any: Prescribed or Continued at Discharge Meds if any: NOT Prescribed or Continued at Discharge Cerebrovascular accident Inclusion Criteria At DC or during hospital stay patient has or had the following: CVA/TIA Diagnosis No Discharge Core Measures Meds if any: Prescribed or Continued at Discharge Meds if any: NOT Prescribed or Continued at Discharge Venous thromboembolism Inclusion Criteria VTE Diagnosis No VTE Type NONE VTE Confirmed by (Test) NONE Discharge Core Measures - Per Current guidelines, there needs to be overlap - treatment for the first 5 days of Warfarin therapy. - If discharged on Warfarin prior to 5 days of - overlap therapy, the patient will need to be - assessed for post discharge needs including - *Post discharge parental anticoagulation - *Warfarin and/or parental anticoagulation education - *Follow up date to check INR post discharge At least 5 days overlap therapy as Inpatient No Meds if any: Prescribed or Continued at Discharge Note: Overlap Therapy is Warfarin and Anticoagulant Meds if any: NOT Prescribed or Continued at Discharge Meds if any: NOT Prescribed or Continued at Discharge
--- NOTE | 2016-08-23 21:09 | Event Note ---
Event Note Event Note: Patient was interviewed. In his interview patient does not have understanding hhis condition and reasonable choices that he was given. Patient does not appreciate any benefit for all the medical treatment that he has been receiving. When he was questioned to express his rationale for leaving AMA and not accepting the medical detox, patient response any tabgible shred of logic to back his descion. Cosidering his presentation and Hx of Hugo, and the results of his interview( Semi structured descion making capacity assessment), incapable of making medical descion, I do not feel safe to D/C him. I will discuss the case with my attending.
--- NOTE | 2016-08-23 22:00 | NUR ---
LATE ENTRY NURSING NOTE: AROUND 2029, PT STARTED CHANGING INTO HIS STREET CLOTHES STATING HE WAS GOING TO LEAVE THE HOSPITAL. MD LEE PAGED & REPORTED TO BEDSIDE. AFTER SPEAKING W PATIENT FOR 10 MINUTES AND PT STILL INSISTING ON LEAVING AMA, MD MARTINEZ REPORTED TO BEDSIDE. PER MD, PT IS NOT IN RIGHT CAPACITY TO LEAVE AMA. MD MARTINEZ REQUESTED SECURITY TO BEDSIDE. MD LEE AND JAUN LEFT UNIT WITHOUT NOTIFYING THIS RN. BOTH MD'S PAGED MULTIPLE TIMES. NURSING VERIFICATION REP LEIGHA REPORTED TO UNIT. NURSING VERIFICATION REP PAGED MD ESCALERA. MD ESCALERA NOTIFIED WE CANNOT HOLD PATIENT AGAINST HIS WILL UNLESS A PEC IS FILLED OUT. MD ESCALERA AND MD MARTINEZ REPORTED TO BEDSIDE. PEC FORM FILLED OUT. PT PLACED IN PAPER SCRUBS, ALL PERSONAL BELONINGS TAKEN. TWO BELONGINGS BAGS IN 2NA MED ROOM, AND ONE BELONGS BAG PLACED IN SAFE BY VERIFICATION REP - COPY OF DOCUMENTATION IN PT'S CHART. ORDER FOR 4 POINT RESTRAINTS PLACED BUT NOT NEEDED. ORDER DC BY . ORDER PLACED FOR 1:1 SITTER. RN WILL CONTINUE TO MONITOR.
--- NOTE | 2016-08-23 22:30 | NUR ---
NURSING NOTE: EKG ORDERED STAT. PT REFUSING AT THIS TIME. MD LEE AWARE.
--- NOTE | 2016-08-23 22:30 | NUR ---
NURSING NOTE: PT BP 160/100. PER MD, ADMINISTER PRN DOSE OF CLONIDINE.RN WILL CONTINUE TO MONIOR.
[2016-08-24] VITALS (9 sets, daily range): BP systolic 110–160; BP diastolic 76–100
--- NOTE | 2016-08-24 06:55 | PN- Housestaff ---
See Addendum Subjective Follow-up For: alcohol withdrawal Subjective: Event last night noted. Pt had sitter today, he was alert, orientedX3, not on restrains. although he would like to go home today, agreeable to stay till tomorow and finish ativan taper at home. nevin has evaluated and found that he was not able to articulate the risk and benefits, hence he lacks capacity. sitter was discontinued because he was calm. his bp better controlled with addition of clonidine. over last 24 hrs he received 4 mg of ativan po in total with ciwa score of 0-4. will taper to 1q8 today pt smokes 1ppd and wanted to leave to smoke, he agreed to try nicotine patch instead, although he claimed it wasn't useful last time. Review of Systems Constitutional: Reports: see HPI. Objective Last 24 Hrs of Vital Signs/I&O Vital Signs Date Time Temp Pulse Resp B/P B/P Pulse O2 O2 Flow FiO2 Mean Ox Delivery Rate 08/24 0634 98.9 67 20 144/90 95 Room Air 08/24 0600 98.0 64 20 148/76 08/24 0400 98.0 64 20 148/76 08/24 0303 98.0 64 20 148/76 95 Room Air 08/24 0000 98.2 68 20 160/100 08/23 2233 68 160/100 08/23 2222 68 160/100 08/23 2221 98.2 68 20 160/100 96 Room Air 08/23 2200 98.1 68 20 100/60 08/23 2000 98.1 71 18 140/86 08/23 1600 98.1 71 18 140/86 08/23 1426 98.1 71 18 140/86 96 Room Air Intake & Output 08/24 1600 08/24 0800 08/24 0000 Intake Total 100 900 Output Total Balance 100 900 Intake, Oral 100 900 Physical Exam General Appearance: Alert, Oriented X3, Cooperative, No Acute Distress Cardiovascular: Regular Rate, Normal S1, Normal S2 Lungs: Clear to Auscultation, Normal Air Movement Abdomen: Normal Bowel Sounds, Soft, No Tenderness Neurological: Normal Speech Extremities: trace edema Current Medications: Current Medications Sig/Festus Start time Last Medication Dose Route Stop Time Status Admin Acetaminophen 650 MG Q6P PRN 08/22 1500 AC PO Acetaminophen/ 1 TAB Q6P PRN 05/10 0537 AC Hydrocodone Bitart PO Amlodipine Besylate 10 MG DAILY 08/23 1000 AC 08/24 PO 0913 Clonidine 0.2 MG TID PRN 08/23 1000 AC 08/23 PO 2233 Divalproex Sodium 750 MG DAILY 08/23 1000 AC 08/24 PO 0912 Enoxaparin Sodium 40 MG DAILY 08/22 1623 AC 08/24 SC 0913 Folic Acid 1 MG DAILY 08/22 1443 DC 08/24 PO 08/24 1001 0912 Gabapentin 300 MG TID 08/22 2200 AC 08/24 PO 0912 Haloperidol 1 MG ONCE ONE 08/23 2130 DC 08/23 IM 08/23 213 2223 Lorazepam 1 MG Q8 08/24 1400 AC PO Lorazepam 1 MG Q12H 08/24 0000 DC PO 08/24 1201 Lorazepam 1 MG Q6 08/22 1800 DC 08/24 PO 0527 Lorazepam 0 Q1P PRN 08/22 1600 AC IV Melatonin 5 MG AT BEDTIME 08/23 2200 AC 08/23 PO 2222 Metoprolol Tartrate 100 MG BID 08/22 2200 AC 08/24 PO 0912 Multivitamins 1 TAB DAILY 08/22 1443 AC 08/24 PO 0913 Nicotine 14 MG DAILY 08/24 0830 AC TOP Oxycodone HCl 10 MG Q6P PRN 08/22 1500 AC PO Patient Medication 1 ED .STK-MED ONE 08/23 1405 GA Teaching ED 08/23 1406 Sodium Chloride 2 SPRAY Q4P PRN 08/22 1630 AC 08/24 STEPHANIE 0913 Thiamine HCl 100 MG DAILY 08/23 1000 AC 08/24 PO 08/25 1001 0913 Last 24 Hrs of Lab/Talha Results Last 24 Hrs of Labs/Mics: Laboratory Tests 08/24/16 0645: Anion Gap 8, Estimated GFR > 60, BUN/Creatinine Ratio 16.3, Magnesium 1.8 Assessment/Plan Assessment: This is a 55-year-old male with past medical history of alcohol abuse, seizures, TBI, hypertension, garcia puffy tumor, who presented to the [facility] for worsening confusion. Vitals at the time of admission Temperature 96.8, blood pressure 141/78, respiration rate of 18, pulse rate of 78, saturation of 96% on room air Labs: Normal WBC, hemoglobin of 12.1, hematocrit of 38, Chemistries shows low magnesium of 1.4, ammonia level of less than 9, creatinine kinase of 128, rest of the chemistries within normal limits serum alcohol level less than 10, valproic acid level of 21.[address] nonsignificant for any intracranial trauma EKG showed normal sinus rhythm with lots of artifacts Assessment 1. Acute alcohol detox 2. Alcohol withdrawal 3. 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 History of TBI 5. 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 H/O HTN-on amlodipine and bb Plan Continue to monitor on general medicine floor PRN IV Ativan as per [facility] protocol Taper ativan to 1 mg q8, plan to dc on taper Continue PO thiamine folate and multivitamin Appreciate SW consult Appreciate psych consult - pt has no capacity to make healthcare decision at this time Continue sitter for now as per psych Continue clonidine 0.2 mg tid as needed for systolic bp > 160 Started Nicotine patch Continue home amlodipine and lopressor Continue home depakote Continue home gabapentin replete electrolytes as needed Patient is not suicidal or homicidal The patient needs to be set up with an IOP program at [place] and care We will consider ENT evaluation as an outpatient he needs to be followed up with [facility] Regular diet DVT ppx with S/c lovenox Fc Problem List: 1. Alcohol withdrawal Pain Ratin Pain Location: none Pain Goal: Remain pain free Pain Plan: none Tomorrow's Labs & Rationales: none DVT/Prophylaxis: mechanical, pharmacological
--- NOTE | 2016-08-24 09:13 | Incdntl Nt Psy ---
See Addendum Incidental Note Notation: see below Subjective Background: Identifying Info: 55-year-old single male admitted to for EtOH withdrawal due to history of seizure. He requested to leave AMA last night was deemed to lack capacity and was placed on a PEC by nursery teacher. Dr. Abernathy requested consult this morning regarding capacity reevaluation, safety assessment, and need for 1:1 sitter. Subjective When patient initially was asked if he had any questions at beginning of interview he asks if this writer technical publications knew if the psychologist he spoke to outpatient previously had sent in the paperwork for his disability and where it may have gone. He endorses confusion and expresses concern related to it. Objective Mental Status Exam Presentation/Appearance: Cooperative with evaluation to best of his ability. Hospital garb. Orientation: x4 Sensorium: Awake and alert Eye contact: Appropriate Affect: Somewhat blunted Mood: No complaints Depression: Denies Anxiety: Denies Thought Content: - Denies SI/HI, AH/VH, PI. States and also believes they will not kill themselves. - Denies Hopeless/Helpless Thoughts Thought Process: Tangential at times, answers several questions inappropriately Associations: Somewhat loose Speech: Normal tone and rate Judgment: Some impairment Insight: Fair at present Cognition: Memory: Short-term deficits, long-term appears more intact able to state many facts of his childhood Attention/Concentration: Impairments noted Fund of Knowledge: Did not assess Abstractions: Did not assess MMSE: Did not assess Capacity assessment Patient does not appear to understand the relevant information r/t current treatment as it relates appreciatiation of the situation and it's consequences. He does not appear to be able to be able to reason about treatment options. He cannot identify risks and benefits of treatment or nontreatment. He is able to communicate a choice between treatment or no treatment and expresses his desire to remain in hospital at this point. Review of Systems Constitutional: Reports: see HPI. Assessment/Plan Assessment: 55-year-old male with a history of traumatic brain injury currently experiencing EtOH withdrawal. While mentation appears to have improved from what it was previously documented as he still lacks healthcare decision-making capacity. He is not presently at risk for self-harm or harm of others. However if confusion worsens due to withdrawal this may be a concern. Plan: 1. Continue one-to-one sitter for confusion, continue to reassess the need for supervision. 2. At present the patient does not meet the requirements for PEC for acute inpatient psychiatric hospitalization and it will be rescinded. 3. If the patient again expresses the desire to leave AMA please reassess capacity. Any provider can assess his capacity by determining if he has the ability to communicate a choice, understand the relevant information, appreciate the situation and it's consequences, and reason about treatment options. Please contact psychiatry for assistance or guidance if necessary. 4. Please initiate social work referral for assistance with disposition planning in this EtOH patient. Thank you for including psychiatry in this case we are signing off.
[2016-08-24] MEDS ORDERED: ATIVAN0.5 M1 PO (10:47)
[2016-08-24] MEDS ORDERED: KETOCONAZOLE15 GM TOP (11:54)
--- NOTE | 2016-08-24 13:22 | NUR ---
PATIENT NOTIFIED PSM OF FEELING NUMBNESS/TINGLING TO RIGHT ARM. THIS NURSE IN TO SEE PATIENT. PATIENT REPORTING "STRESS/ANXIETY". MEDICATED WITH SCHEDULED PO ATIVAN 1MG. PATIENT ABLE TO WIGGLE FINGERS, REPORTED FEELING NUMBNESS/TINGLING. NOTIFIED DR FORTE #136 TO EVALUATE PATIENT. WILL CONTINUE TO MONITOR.
--- NOTE | 2016-08-24 17:45 | NUR ---
1644- PT STATES HE IS FEELING VERY AGITATED. PT STATES "I CAN FEEL THE AGITATION BUBBLING UP. IF SECURITY COMES, THERE WILL BE TROUBLE HERE. I READ IN MY PAPERWORK THAT I HAVE THE RIGHT TO LEAVE. I HAVE IT HIGHLIGHTED." PT ALSO STATED HE WAS HAVING ANXIETY. PT HAS NO IV ACCESS TO ADMINISTER ATIVAN PER CIWA. PT STATES HE WILL NOT ALLOW IV TO BE PLACED. CALLED DR. LITTLEJOHN AND NOTIFIED OF ABOVE. ORDER PLACED FOR ATIVAN PO 1.5 MG ONCE ONLY. RN ECONOMIST RESEARCH ASSISTANT NOTIFIED OF ABOVE AND ASSESSED PT AT BEDSIDE. DR. LITTLEJOHN TO ASSESS PT AT BEDSIDE.
--- NOTE | 2016-08-24 17:52 | NUR ---
1730- PT VERBALIZING THAT HE IS GOING TO LEAVE. PT WAS PAPERED BY MD LAST NIGHT. DR. LITTLEJOHN AND DR. ARANGO AT BEDSIDE. SECURITY CALLED A BACK UP.
--- NOTE | 2016-08-24 17:56 | Event Note ---
Event Note Event Note: I was paged by the nurse around 5:30 PM as patient wants to leave AMA. He was here for alcohol detoxification and he has one-to-one sitter for confusion. * Me and my resident siri spoke with the person and he expressed his desire to leave AMA. * We reassessed his capacity to make decisions-he couldn't understand the risks of leaving hospital tonight. * However he has no capacity to make healthcare decisions at this point of time and we spoke with on-call attending Dr. Muñoz -recommended that the patient shouldn't leave AMA. * Patient was very agitated and order #7 was called for help. * However after 30 minutes of lengthy discussion with the patient, he finally decided to stay tonight * 5 mg of oral Haldol and 2 mg of Ativan was given. * Continued one-to-one sitter.
--- NOTE | 2016-08-24 18:11 | NUR ---
174- PT STATES HE IS LEAVING. PER DR. DELATORRE, PT DOES NOT HAVE DECISION MAKING CAPACITY. ORDER NUMBER 7 CALLED. SECURITY ALREADY PRESENT.
--- NOTE | 2016-08-24 19:03 | NUR ---
1845- PT HAS AGREED TO STAY IN THE HOSPITAL. PT REFUSES ALL IV AND IM MEDICATIONS. STATES HE WILL TAKE PILLS ONLY. PO HALDOL GIVEN. PT IN ROOM WITH SITTER IN PLACE. PT WITH REDUCED AGITATION AT THIS TIME. WALKING AROUND ROOM AND NO LONGER STATING HE IS LEAVING.
[2016-08-25 02:00] VITALS: BP 130/88
[2016-08-25 05:48] VITALS: BP 150/92
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
--- NOTE | 2016-08-25 09:39 | Incdntl Nt Psy ---
Incidental Note Notation: Previously signed off on patient reconsult requested by Dr. Valencia for capacity. Subjective Background: Identifying Info: 55-year-old single male admitted to [facility] for EtOH withdrawal due to history of seizure. He requested to leave AMA again last night was deemed to lack capacity, order #7 called and put given haldol. Reconsult this morning regarding capacity reevaluation, safety assessment, and need for 1:1 sitter. Subjective Patient expresses the wish to leave prior to completion of his Ativan taper. When asked about risks and benefits of potentially stopping treatment early states "well for me the main risk is seizures." Objective Mental Status Exam Presentation/Appearance: Cooperative with evaluation to best of his ability. Hospital gar. Orientation: x4 Sensorium: Somnolent but arousable Eye contact: Appropriate Affect: Somewhat blunted Mood: No complaints Depression: Denies Anxiety: Denies Thought Content: - Denies SI/HI, AH/VH, PI. States and also believes they will not kill themselves. - Denies Hopeless/Helpless Thoughts Thought Process: More linear than on previous interview Associations: Appropriate Speech: Normal tone and rate Judgment: Fair Insight: Fair Cognition: Memory: Short-term deficits related to detox, long-term appears more intact Attention/Concentration: Improved, grossly intact Fund of Knowledge: Did not assess Abstractions: Did not assess MMSE: Did not assess Capacity assessment Patient does appear to understand the relevant information r/t current treatment as it relates appreciatiation of the situation and it's consequences. He is able to be able to reason about treatment options. He can identify risks and benefits of treatment or nontreatment, including risk of Sz and . He is able to communicate a choice between treatment or no treatment and expresses his desire to leave the hospital at this point. Review of Systems Constitutional: Reports: see HPI. Assessment/Plan Assessment: 55-year-old male with a history of traumatic brain injury currently experiencing EtOH withdrawal. Mentation has improved, he is able to satisfy healthcare decision-making capacity as it relats to his detox. He is not presently at risk for self-harm or harm of others. Plan: 1. Patient may leave AMA if he continues to wish to unless confusion returns at which point a new capacity assessment would be required. Any provider can assess his capacity by determining if he has the ability to communicate a choice, understand the relevant information, appreciate the situation and it's consequences, and reason about treatment options. Please contact psychiatry for assistance or guidance if necessary. 2. Please discontinue safety monitor, if he again becomes confused it may again be required due to fall risk. Thank you for including psychiatry in this case, we are signing off.
[2016-08-25 09:42] VITALS: BP 124/78
--- NOTE | 2016-08-25 10:50 | NUR ---
continue to monitor patients status as it relates to his ETOH detox. Aware that both last evening and Sunday evening Jairon wanted to leave; capacity eval done early yestreday morning by psychiatry revealed no capacity at that time, but this morning, Wesley Cristobal APRN evaluated patient again, and patient now has capacity to sign out AMA. Yesterday when I met with the patient he was largely focused on getting his food stamp benefit reinstated. His housing worker from [facility] reports that he will be able to continue to support Jairon with this issue, but reported that Jairon was interested in residential treatment. I met with Jairon yesterday afternoon. He remained focused on the food stamp issue; bargaining when the issue of aftercare is addressed "I dont want a 30 day program; I'll do 14-21 days". Patient signed a release for clinical information to be submitted to [facility] and [facility] in [place], and written information provided to patient about both of these facilities. This am, patient again wanting to leave; has been cleared by psychiatry and medicine. Will meet with patient to ascertain his interest in formal aftercare.
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
--- NOTE | 2016-08-25 11:33 | PN- Student ---
Subjective Subjective: Patient was seen this morning sitting in bed. Acute overnight report of confusion, agitation, and a desire to leave AMA. After a lengthy [address] Petit and Dr. Dee, patient decided to stay. Please refer to event note on 08/24/2016 for full report. Continued one-to-one sitter. Patient reports feeling of indifference this morning. Denies any other current complaints. Objective Objective: Vital Signs Date Time Temp Pulse Resp B/P B/P Pulse O2 O2 Flow FiO2 Mean Ox Delivery Rate 08/25 0942 124/78 08/25 0941 78 124/78 08/25 0548 98.7 65 18 150/92 96 Room Air 08/25 0200 98.2 91 18 130/88 96 Room Air 08/24 2245 64 150/90 08/24 2245 97.6 64 18 150/90 95 Room Air 08/24 2110 97.6 64 18 150/90 08/24 1732 97.6 64 20 154/100 98 Room Air Intake & Output 08/25 1600 08/25 0800 08/25 0000 Intake Total 200 200 Output Total Balance 200 200 Intake, Oral 200 200 Number 0 0 Bowel Movements Patient 225 lb Weight Physical Exam General Appearance: Alert, Awake, Cooperative, No acute distress Cardiovascular: Regular Rate, Normal S1, Normal S2 Lungs: Clear to Auscultation Abdomen: Normal Bowel Sounds, Soft Extremities: Trace edema Current Medications Sig/Festus Start time Last Medication Dose Route Stop Time Status Admin Acetaminophen 650 MG Q6P PRN 08/22 1500 AC 08/25 PO 0929 Acetaminophen/ 1 TAB Q6P PRN 08/23 0537 AC Hydrocodone Bitart PO Amlodipine Besylate 10 MG DAILY 08/23 1000 AC 08/25 PO 0941 Clonidine 0.2 MG TID PRN 08/23 1000 AC 08/23 PO 2233 Divalproex Sodium 750 MG DAILY 08/23 1000 AC 08/25 PO 0942 Enoxaparin Sodium 40 MG DAILY 08/22 1623 AC 08/25 SC 0945 Gabapentin 300 MG TID 08/22 2200 AC 08/25 PO 0941 Haloperidol 5 MG ONE PRN 08/24 1845 AC 08/24 PO 1840 Haloperidol 5 MG .STK-MED ONE 08/24 1837 DC PO 08/24 1838 Haloperidol 1 MG ONCE ONE 05/11 1800 DC IM 08/24 1801 Ketoconazole 1 KARI BID 08/24 1415 AC 08/25 TOP 0947 Lorazepam 1 MG Q12 08/25 2200 AC PO Lorazepam 2 MG ONCE ONE 08/24 1845 DC 08/24 PO 08/24 1846 1839 Lorazepam 1.5 MG ONCE ONE 08/24 1700 DC 08/24 PO 08/24 1701 1700 Lorazepam 1 MG Q8 08/24 1400 DC 08/25 PO 0541 Lorazepam 0 Q1P PRN 08/22 1600 AC 08/24 IV 2112 Melatonin 5 MG AT BEDTIME 08/23 2200 AC 08/24 PO 2245 Metoprolol Tartrate 100 MG BID 08/22 2200 AC 08/25 PO 0942 Multivitamins 1 TAB DAILY 08/22 1443 AC 08/25 PO 0941 Nicotine 14 MG DAILY 08/24 0830 AC TOP Oxycodone HCl 10 MG Q6P PRN 08/22 1500 AC PO Sodium Chloride 2 SPRAY Q4P PRN 08/22 1630 AC 08/24 STEPHANIE 0913 Thiamine HCl 100 MG DAILY 08/23 1000 DC 08/25 PO 08/25 1001 0941 Assessment/Plan Assessment: Patient is a 55-year-old man with a past medical history significant for alcohol abuse, seizures, Mao Puffy tumor s/p ENT evaluation and resection in November 2015 at [facility], hypertension, and GERD who presented to [facility] with complaints of nausea, confusion, and alcohol detox. 1 - Alcohol Dependence & Withdrawal 2 - Hypertension 3 - History of Idiopathic Seizures 4 - History of MRSA Positive Sinus Abcess 5 - History of Mao Puffy Tumor 6 - Right Elbow Wound Head CT - 08/22/2016 IMPRESSION: No acute intracranial pathology. Chronic encephalomalacia in the left inferior frontal lobe with postsurgical changes at the frontal lobes and healed fractures of the left orbital roof and lamina papyracea. Chronic mucosal thickening and surrounding osteitis are evident at the left ethmoid air cells and at the frontal sinuses. - - - - - - - - - - - - - - - - - - - - - - - - - - - - - - - - - - - - - - - - - - - - - - - - - - - - - - - - 1. Alcohol Dependence & Withdrawal. Patient presented to [facility] on 08/18/2016 with alcohol intoxication and was subsequently discharged with instructions to follow-up at [facility] for outpatient alcohol detox. On admission at [facility], patient reported feeling nauseated and confused. His last drink was on 08/20/2016. Blood alcohol level on admission was <10 and CIWA scoring was 17. CIWA scoring of 0-3 on 08/23/2016, 0-14 on 2016, and 0-4 on 08/25/2016. Received 6.5 mg PO and 2 mg IV Ativan over the last 24 hours, as well as 5 mg PO Haldol. Patient is not suicidal or homicidal, and should be set up with an IOP program at [facility]. * Event last night. Refer to Event Note 08/24/2016 * Ativan 1 mg PO Q8. D/C on taper if he's going home * PRN IV Ativan as per CIWA protocol * Multivitamin, Thiamine, Folate PO * One-to-one sitter * reinforcing metal worker consult * Psych consult 2. Hypertension. Blood pressure on admission was 169/108. Currently at 180/ 110. * Amlodipine 10 mg PO Daily * Metoprolol 100 mg PO BID * Clonidine 0.2 mg TID for systolic BP > 160 3. History of Idiopathic Seizures. * Depakote 750 mg PO Daily * Gabapentin 300 mg PO TID 4. History of MRSA Positive Sinus Abcess. Treated via drainage and IV Vancomycin in November of 2015. Consider ENT evaluation as an outpatient with Dr. Mellisa M.D 5. History of Mao Puffy Tumor. Patient received ENT evaluation and resection of the tumor at [facility] in November of 2015. Consider ENT evaluation as an outpatient with Dr. Mellisa M.D 6. Right Elbow Wound. * Continue local wound care Regular diet DVT prophylaxis subcutaneous Lovenox Full code
--- NOTE | 2016-08-25 15:08 | NUR ---
Late Entry: Aware of patients discharge this am. Patient aware that should he change mind about treatment, he can call either [facility] or [facility] from the community. Message left for Jairon Choudhary's housing inspector at [facility]. Patient decided that he would rather discharge than spend the weekend in house completing ativan taper.
== END 2016-08-25 13:52 | DRG 775 ==
LOC: ERH 09:56 → 2NA 14:47 → ERHI 14:47 → EDBEDREQ 17:53 → ENRESERV 20:15 → 2NA 20:59 → ENPENDDIS 08-25 11:16 → 2NA 08-25 13:52
PROVIDERS: Emergency Medicine; Internal Medicine Nephrology; ADMIT Internal Medicine
DX: F10.239 Alcohol dependence with withdrawal, unspecified (principal); R56.9 Unspecified convulsions; Z87.820 Personal history of traumatic brain injury; I10 Essential (primary) hypertension; R41.0 Disorientation, unspecified; Y90.0 Blood alcohol level of less than 20 mg/100 ml; F17.210 Nicotine dependence, cigarettes, uncomplicated
CPT/HCPCS: 2NAP; 36415; 80307; 81001; 82436; 93005; 93010; 96372; 96374; 96375; G0480; J1630; J1650; J2405; J3490

== ENCOUNTER 2016-08-25 22:47 | Emergency (ER) | payer OTHER ==
[~2016-08-25] VITALS: Ht 165.1 cm; Wt 74.8 kg
[~2016-08-25 22:47] MED LIST changes: +ATIVAN0.5 M1 PO; +DEPAKOTE ER500 M1 PO; +KETOCONAZOLE15 GM TOP; +NEURONTIN300 M1 PO; +NORVASC10 M1 PO
--- NOTE | 2016-08-26 00:17 | ED GENERAL ADULT ---
History of Present Illness General Chief Complaint: ETOH/Drug Related Complaint Stated Complaint: BIBA, ETOH Source: patient Exam Limitations: poor historian, intoxication Vital Signs & Intake/Output Vital Signs & Intake/Output Vital Signs Date Time Temp Pulse Resp B/P B/P Pulse O2 O2 Flow FiO2 Mean Ox Delivery Rate 08/26 0258 98.2 78 16 107/59 08/26 0258 98.2 78 16 107/59 98 Room Air ED Intake and Output 08/26 0000 08/25 1200 Intake Total Output Total Balance Patient 165 lb Weight Weight Estimated Measurement Method Allergies Coded Allergies: phenytoin (From DILANTIN) (Severe, MIGRAINES 03/31/16) Reconcile Medications Amlodipine Besylate (Norvasc) 10 MG TABLET 1 TAB PO DAILY htn (Reported) Divalproex Sodium (Depakote ER) 500 MG TAB.ER.24H 750 MG PO QPM seizures ( Reported) Gabapentin (Neurontin) 300 MG CAPSULE 1 CAP PO TID NEUROPATHY (Reported) Ketoconazole 2 % CREAM..G. 1 KARI TOP BID SKIN HEALTH (Reported) apply to affected area(s) Lorazepam (Ativan) 0.5 MG TABLET 1 TAB PO SI Alcohol withdrawal Please take 1 mg (2 tabs) on 08/25/16 PM take 0.5 mg (1 tab) on 08/26/16 am take 0.5 mg (1 tab) on 08/26/16 PM take 0.5 mg (1 tab) on 08/27/16 then stop Metoprolol Tartrate 100 MG TABLET 1 TAB PO BID BP (Reported) Naproxen 500 MG TABLET 1 TAB PO BID GERD (Reported) Pseudoephedrine HCl (Nasal Decongestant) 30 MG CAPSULE 1 TAB PO Q6P PRN NASAL CONGESTION Triage Note: PT BIBA +ETOH. PT ARRIVES TEARFUL. PER EMS PT WAS FOUND TO HAVE HAD 4 TALL BEERS. PT STATES HE WAS JUST DISCHARGED FROM HERE RECENTLY FOR ETOH. Triage Nurses Notes Reviewed? yes HPI: Patient presents for evaluation of acute intoxication. He states that he just was released after 4 day hospitalization at [facility] for alcohol detox. He states today he had a beer and some cigarettes and began "feeling the same old way". He states he felt disoriented and somewhat despondent but repeatedly denies suicide ideation or intent. In addition he is declined admission for detox. Past History Travel History Traveled to [place] past 21 day No Medical History Any Pertinent Medical History? 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 No Review of Systems Review of Systems Constitutional: Reports: no symptoms. EENTM: Reports: no symptoms. Respiratory: Reports: no symptoms. Cardiovascular: Reports: no symptoms. GI: Reports: no symptoms. Genitourinary: Reports: no symptoms. Musculoskeletal: Reports: no symptoms. Skin: Reports: no symptoms. Neurological/Psychological: Reports: no symptoms. Hematologic/Endocrine: Reports: no symptoms. Immunologic/Allergic: Reports: no symptoms. All Other Systems: Reviewed and Negative Physical Exam Physical Exam General Appearance: see below Comments: Gen.: Well-nourished, well-developed, no acute respiratory distress. Patient answers questions well but there is a brief pause before he answers. Speech is only mildly slurred but otherwise appropriate. Head: Normocephalic, atraumatic. Eyes: Normal inspection bilaterally Ears: Normal inspection bilaterally Nose: Normal inspection Throat/mouth : Moist mucosa Neck: Supple, full range of motion, no goiter Heart: Regular rate and rhythm, no murmurs rubs or gallops Lungs: Clear to auscultation bilaterally with normal air entry Chest: Nontender Back: Normal range of motion Abdomen: Soft, nontender, nondistended, normal bowel sounds Extremities: Normal range of motion grossly, equal radial pulses, no cyanosis clubbing or edema Neurologic: Cranial nerves grossly intact, gait is stable Skin: warm and dry Psychiatric: Calm, cooperative, no apparent delusions or hallucinations Core Measures ACS in differential dx? No CVA/TIA Diagnosis: No Severe Sepsis Present: No Septic Shock Present: No Progress Differential Diagnoses I considered the following diagnoses in my evaluation of the patient: Alcohol intoxication Plan of Care: Orders Procedure Date/time Status Regular Diet 08/26 B Active URINE DRUGS OF ABUSE 08/25 2304 Complete Laboratory Tests 08/25/166: Urine Opiates Screen < 100.00, Methadone Screen < 40, Barbiturate Screen < 60, Ur Phencyclidine Scrn < 6.00, Amphetamines Screen < 100, U Benzodiazepines Scrn < 85, Urine Cocaine Screen < 50, Urine Cannabis Screen < 5.00 08/25/16 230: Serum Alcohol Cancelled Initial ED EKG: none Comments: 08/26/2016 12:48:43 AM Fermin became increasingly loud vocal abusive and profane. He would not respond to verbal redirection any longer. He has been chemically sedated. 08/26/2016 7:26:08 AM Fermin has had an uneventful emergency department stay overnight. I feel he is now stable for discharge. Departure Departure Disposition: HOME OR SELF CARE Condition: Stable Clinical Impression Primary Impression: Alcohol intoxication Qualifiers: Complication of substance-induced condition: uncomplicated Qualified Code: F10.920 - Alcohol use, unspecified with intoxication, uncomplicated Referrals: ROBINA CAN MD (PCP/Family) Additional Instructions: Avoid alcohol. Follow-up with your primary care doctor this week. Return if any concerns or sudden worsening. Departure Forms: Customer Survey General Discharge Information Critical Care Note Critical Care Note Critical Care Time: non-applicable
[2016-08-26 02:58] VITALS: BP 107/59
== END 2016-08-26 07:55 ==
LOC: ERH 22:47
DX: F10.129 Alcohol abuse with intoxication, unspecified (principal)
CPT/HCPCS: 80307; 96372; G0480; J1200; J1630

== ENCOUNTER 2017-05-19 12:01 | Inpatient (IN) | payer OTHER ==
[~2017-05-19] VITALS: Ht 172.7 cm; Wt 106.6 kg
[~2017-05-19 12:01] MED LIST changes: +AUGMENTIN 875-1 EACH PO; +CYCLOBENZAPRINE5 M2 PO; +DELTASONE20 MG PO; +DEPAKOTE ER250 M1 PO; +DIVALPROEX SOD500 M3 PO; +DOXYCYCLINE HY100 M4 PO; +FOLIC ACID1 M1 PO; +IBUPROFEN600 M1 PO; +IBUPROFEN800 M1 PO; +KEFLEX500 M1 PO; +MOBIC15 M1 PO; +NASONEX17 GM NASB; +PANTOPRAZOLE SO20 M1 PO; +TRAMADOL HCL50 M1 PO; +VENTOLIN HFA18 GM INH
--- NOTE | 2017-05-19 12:05 | ED INFLUENZA/URI COMPLAINT ---
History of Present Illness General Chief Complaint: Upper Respiratory Sx/Fever Stated Complaint: BIBA URI SYMPTOMS? Source: patient, old records Exam Limitations: no limitations Vital Signs & Intake/Output Vital Signs & Intake/Output Vital Signs Date Time Temp Pulse Resp B/P B/P Pulse O2 O2 Flow FiO2 Mean Ox Delivery Rate 05/19 1651 99.4 05/19 1631 99.4 110 18 174/84 96 Room Air 05/19 1413 103 18 188/90 95 Room Air 05/19 1212 97 Room Air 05/19 1204 98.2 109 20 151/89 96 Room Air Allergies Coded Allergies: phenytoin (From [place]) (Severe, MIGRAINES 03/31/16) Reconcile Medications Amlodipine Besylate (Norvasc) 10 MG TABLET 1 TAB PO DAILY htn (Reported) Cyclobenzaprine HCl 5 MG TABLET 1 TAB PO TIDPRN PRN muscle strain Divalproex Sodium (Divalproex Sodium ER) 500 MG TAB.ER.24H 4 TAB PO DAILY SEIZURES (Reported) Doxycycline Hyclate 100 MG TABLET 1 TAB PO BID Frontal Abscess . Folic Acid 1 MG TABLET 1 TAB PO DAILY SUPPLEMENT (Reported) Gabapentin (Neurontin) 300 MG CAPSULE 2 CAP PO BID Alcohol cessation ( Reported) Ibuprofen 600 MG TABLET 1 TAB PO TID PRN pain with food Metoprolol Tartrate 100 MG TABLET 1 TAB PO BID BP (Reported) Mometasone Furoate (Nasonex) 50 MCG SPRAY.PUMP 2 SPRAY NASB DAILY rhinitis Pantoprazole Sodium 20 MG TABLET.DR 1 TAB PO DAILY GI (Reported) Thiamine HCl (Vitamin B-1) 100 MG TABLET 1 TAB PO DAILY SUPPLEMENT (Reported) Tramadol HCl (Ultram) 50 MG TABLET 1 TAB PO TID PAIN (Reported) Triage Nurses Notes Reviewed? yes HPI: 56M PMH seizure disorder, HTN, Pott's puffy tumor s/p resection, chronic sinusitis, recent forehead abscess s/p I&D, sent in from residential for worsening frontal sinus and maxillary sinus pain bilateally L>R, with chills and malaise. 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 Treated most recently with Levaquin and Prednisone that he did not take. Denies photophobia, neck stiffness, sore throat, nasal discharge, chest pain, dyspnea. Past History Travel History Traveled to [place] past 21 day No Medical History Any Pertinent Medical History? 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 No Review of Systems Review of Systems Constitutional: Reports: no symptoms. EENTM: Reports: no symptoms. Respiratory: Reports: no symptoms. Cardiovascular: Reports: no symptoms. GI: Reports: no symptoms. Genitourinary: Reports: no symptoms. Musculoskeletal: Reports: no symptoms. Skin: Reports: no symptoms. Neurological/Psychological: Reports: no symptoms. Hematologic/Endocrine: Reports: no symptoms. Immunologic/Allergic: Reports: no symptoms. All Other Systems: Reviewed and Negative Physical Exam Physical Exam General Appearance: well developed/nourished, no apparent distress Head: left forehead drained abscess with erythema and mild tenderness Eyes: Bilateral: normal appearance, PERRL, EOMI. Ears, Nose, Throat: moist mucous membrane, hearing grossly normal, pharynx normal, bilateral frontal sinus tenderness L>R, left maxillary sinus tenderness and swelling Neck: normal inspection, supple, full range of motion Respiratory: normal breath sounds, chest non-tender, no respiratory distress Cardiovascular: regular rate/rhythm Gastrointestinal: soft, non-tender Back: normal inspection, normal range of motion Extremities: normal inspection, normal range of motion Neurologic/Psych: awake, alert, oriented x 3, normal mood/affect Skin: intact, normal color, warm/dry Core Measures Sepsis Present: No Sepsis Focused Exam Completed? No Progress Differential Diagnosis: influenza, meningitis, neutropenia, otitis, pneumonia, pharyngitis, sinusitis Plan of Care: Orders Procedure Date/time Status Regular Diet 05/20 B Active Regular Diet 05/19 D Complete ED Holding Orders 05/19 1717 Active Admit to inpatient 05/19 1717 Active Vital Signs 05/19 1717 Active Code Status 05/19 1717 Active Patient Data 02/03 1712 Active Add-on Test (ER Only) 05/19 1302 Active DEPAKOTE LEVEL 05/19 1236 Complete RAPID VIRAL INFLUENZA A 05/19 1224 Complete COMPREHENSIVE METABOLIC PANEL 05/19 1224 Complete CBC WITHOUT DIFFERENTIAL 05/19 1224 Complete Current Medications Sig/Festus Start time Last Medication Dose Stop Time Status Admin Ceftazidime 1,000 MG ONCE ONE 05/19 1730 UNVr (Fortaz) 05/19 1731 Vancomycin HCl 1,000 MG ONCE ONE 05/19 1700 UNir 05/19 Dextrose/Water 250 ML 05/19 1759 1714 (D5W) Laboratory Tests 05/19/17 1236: Anion Gap 12, Estimated GFR > 60, BUN/Creatinine Ratio 13.8, Glucose 90, Calcium 9.3, Total Bilirubin 0.2, AST 23, ALT 30, Alkaline Phosphatase 74, Total Protein 7.1, Albumin 4.2, Globulin 2.9, Albumin/Globulin Ratio 1.4, CBC w Diff NO MAN DIFF REQ, RBC 4.16 L, MCV 99.8 H, MCH 34.3 H, MCHC 34.4, RDW 13.8, MPV 6.6 L , Gran % 74.5, Lymphocytes % 14.1 L, Monocytes % 8.9, Eosinophils % 2.2, Basophils % 0.3, Absolute Granulocytes 6.9 H, Absolute Lymphocytes 1.3, Absolute Monocytes 0.8 H, Absolute Eosinophils 0.2, Absolute Basophils 0, Valproic Acid 19.0 L Microbiology 05/19 1232 NASOPHARYN: Influenza Virus A & B Rapid Smear - COMP Spoke with Dr. Dupree of ENT, recommended IV antibiotics and possible surgery. Initial ED EKG: none Departure Departure Disposition: HOME OR SELF CARE Condition: Stable Clinical Impression Primary Impression: Acute bacterial sinusitis Secondary Impressions: Acute abscess of frontal sinus Referrals: Fidelia GONSALEZ,Marycarmen Osborne (PCP/Family) Departure Forms: Customer Survey General Discharge Information Prescriptions: Current Visit Scripts Doxycycline Hyclate 1 TAB PO BID #20 TAB . Admission Note Spoke With: Kendal GONSALEZ,Hortensia Reina Documentation of Exam: Documentation of any treatments & extenuating circumstances including Concerns Regarding Discharge (functional status, medication knowledge or non-compliance, living conditions, etc.) that warrant an admission rather than observation: forehead abscess communicating with frontal sinus, high concern for brain/ meningeal spread, with history of mRSA sinusitis. Will admit for IV Vancomycin, Ceftazidime, blood cultures, monitoring for meningitis, wound cultures, and likely ENT surgical intervention
[2017-05-19] MEDS ORDERED: ULTRAM50 M1 PO (12:10)
[2017-05-19 13:02] LABS: ABSOLUTE BASOPHIL COUNT 0 /CUMM (0.0-0.2); ABSOLUTE EOSINOPHIL COUNT 0.2 /CUMM (0.0-0.7); ABSOLUTE GRANULOCYTE CT 6.9 /CUMM (1.4-6.5); ABSOLUTE LYMPH COUNT 1.3 /CUMM (1.2-3.4); ABSOLUTE MONOCYTE COUNT 0.8 /CUMM (0.10-0.60); BASOPHIL % 0.3 % (0.0-2.0); EOSINOPHIL % 2.2 % (0-5); GRANULOCYTE % 74.5 % (42.2-75.2); HEMATOCRIT 41.5 % (42-52); MEAN CORPUSCULAR HGB 34.3 PG (27.0-31.0); MEAN CORPUSCULAR HGB CONC 34.4 G/DL (33.0-37.0); MEAN CORPUSCULAR VOLUME 99.8 FL (80.0-94.0); MEAN PLATELET VOLUME 6.6 FL (7.4-10.4); PLATELET COUNT 270 /CUMM (130-400); RBC DISTRIBUTION WIDTH 13.8 % (11.5-14.5); RED BLOOD CELL CT 4.16 /CUMM (4.70-6.10); WHITE BLOOD CELL COUNT 9.2 /CUMM (4.8-10.8)
--- NOTE | 2017-05-19 14:43 | CT SCAN REPORT ---
EXAMINATION: CT SINUS WITH IV CONTRAST CLINICAL INFORMATION: Sinusitis with forehead abscess. Assess for extension of abscess. COMPARISON: Facial CT 03/10/2017. TECHNIQUE: Axial images of the paranasal sinuses were obtained utilizing 90 mL Optiray 320 contrast. Reformatted images were reviewed. DLP: 443 mGy-cm FINDINGS: Since the prior examination, there is new open wound/phlegmon/abscess measuring approximately 1.4 x 1.5 cm transaxially on image 125/175. This is noted just to the left of midline superficial to the left frontal bone. Foci of gas are demonstrated within this collection. Adjacent subcutaneous/subgaleal soft tissue swelling. There is subjacent postsurgical change of the frontal bone with associated radiodense surgical material. The frontal bone again demonstrates diffuse osseous sclerosis and thickening. There is communication of the frontal bone with the adjacent/superficial soft tissues at multiple sites, axial images 121/175 and 115/175. Opacification of the frontal sinus is demonstrated. There is no convincing contiguous epidural fluid collection. There is opacification of the left greater than right ethmoid air cells. Mucosal thickening within the bilateral maxillary sinuses and to a lesser degree the sphenoid sinus. Postsurgical changes of the right ostiomeatal complex. The bilateral orbits are unremarkable. There is encephalomalacia in the left frontal lobe which is unchanged. No focal vascular abnormality is demonstrated. IMPRESSION: New open wound/abscess formation superficial to the left frontal sinus just to the left of midline (see cabrera image). The infection is contiguous with the opacified frontal sinus, with postprocedural changes of the frontal bone redemonstrated. No convincing epidural extension of the abscess. Other multifocal paranasal sinus disease, worst in the left ethmoid air cells redemonstrated.
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
[2017-05-20] VITALS: BP 124/80
[2017-05-20 00:21] VITALS: BP 124/80
[2017-05-20 04:00] VITALS: BP 124/80
--- NOTE | 2017-05-20 06:10 | Admission Certification ---
Admission Certification Certification Statement - As attending physician, I certify that at the time of - admission, based on clinical presentation, severity of - symptoms, need for further diagnostic testing and - therapeutic interventions, and risk of adverse outcomes - without in-hospital treatment, in my clinical assessment, - this patient requires an acute hospital stay for a minimum - of two nights or longer. I have also considered psychsocial - factors such as support system, advanced age, financial - issues, cognitive issues, and failed out-patient treatments, - past re-admission history, safety of patient, and lack of - compliance as applicable. 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
[2017-05-20 07:09] VITALS: BP 120/76
--- NOTE | 2017-05-20 08:50 | PN- Housestaff ---
Mckenzie Sevilla Dario Alvarado 05/20/17 0850: Subjective Follow-up For: #Superficial abscess with extension to the frontal sinus #Chronic medical problems including HTN, seizure, alcohol abuse Subjective: No overnight event. Review of Systems Constitutional: Reports: see HPI. Objective Last 24 Hrs of Vital Signs/I&O Vital Signs Date Time Temp Pulse Resp B/P B/P Pulse O2 O2 Flow FiO2 Mean Ox Delivery Rate 05/20 0839 97.9 78 20 120/76 02/ 0838 97.9 78 20 120/76 /04 0709 97.9 78 20 120/76 95 Room Air 02/ 0021 98.0 76 20 124/80 96 Room Air 02/04 0000 98.0 76 20 124/80 02/03 2254 98.6 96 16 156/76 96 Room Air / 2236 98.5 97 20 168/88 98 Room Air 02/ 2223 106 170/90 / 2152 106 20 170/90 96 Room Air / 2051 98.6 109 22 167/93 97 Room Air / 1853 99.5 / 1841 109 176/88 02/ 1839 99.5 109 24 176/88 95 Room Air 02/03 1651 99.4 / 1631 99.4 110 18 174/84 96 Room Air 02/ 1413 103 18 188/90 95 Room Air Intake & Output / 1600 /04 0800 /04 0000 Intake Total 360 Output Total Balance 360 Intake, IV 300 Intake, Oral 60 Patient 106.594 kg Weight Physical Exam General Appearance: Alert, Oriented X3, Cooperative, No Acute Distress HEENT: Communicating drainage from left forehead frontolateral sinus abscess Current Medications: Current Medications Sig/Festus Start time Last Medication Dose Route Stop Time Status Admin Acetaminophen 650 MG Q6P PRN 05/19 1830 AC PO Acetaminophen 0 .STK-MED ONE 05/19 1653 DC IV Acetaminophen 1,000 MG ONCE ONE 05/19 1645 DC 05/19 N/A 1 UNIT IV 05/19 1659 1651 Amlodipine Besylate 0 .STK-MED ONE 05/19 1840 DC PO Amlodipine Besylate 0 .STK-MED ONE 05/19 1839 DC PO Amlodipine Besylate 10 MG DAILY 05/19 1824 AC 05/20 PO 0839 Ampicillin Sodium/ 3,000 MG Q6 05/19 2359 AC 05/20 Sulbactam Sodium IV 1100 Sodium Chloride 100 ML Ceftazidime 0 .STK-MED ONE 05/19 1839 DC .ROUTE Ceftazidime 1,000 MG ONCE ONE 05/19 1730 DC 05/19 IV 05/19 1731 1851 Cyclobenzaprine HCl 5 MG TIDPRN PRN 05/19 1830 AC PO Divalproex Sodium 2,000 MG DAILY 05/20 1000 AC 05/20 PO 0837 Enoxaparin Sodium 40 MG DAILY 05/20 1000 AC 05/20 SC 0838 Folic Acid 1 MG DAILY 05/20 1000 AC 05/20 PO 0837 Gabapentin 0 .STK-MED ONE 05/19 2218 DC PO Gabapentin 600 MG BID 05/19 2200 AC 05/20 PO 0838 Ibuprofen 600 MG Q6P PRN 05/19 1830 AC PO Ketorolac 15 MG Q6P PRN 05/19 1830 AC 05/20 Tromethamine IV 0623 Metoprolol Tartrate 100 MG BID 05/19 2200 AC 05/20 PO 0838 Omeprazole 20 MG DAILY AC 05/20 0700 AC 05/20 PO 0538 Sodium Chloride 2 SPRAY Q4P PRN 05/19 1830 AC STEPHANIE Thiamine HCl 100 MG DAILY 05/20 1000 AC 05/20 PO 0839 Vancomycin HCl 1,500 MG DAILY 05/20 1000 AC 05/20 Dextrose/Water 250 ML IV 1101 Vancomycin HCl 0 .STK-MED ONE 05/19 1715 DC .ROUTE Vancomycin HCl 1,000 MG ONCE ONE 05/19 1700 DC 05/19 Dextrose/Water 250 ML IV 05/19 1759 1714 Last 24 Hrs of Lab/Talha Results Last 24 Hrs of Labs/Mics: Laboratory Tests 05/20/17 0820: Anion Gap 12, Estimated GFR > 60, BUN/Creatinine Ratio 22.5, CBC w Diff NO MAN DIFF REQ, RBC 3.84 L, MCV 99.6 H, MCH 34.3 H, MCHC 34.5, RDW 13.8, MPV 7.0 L , Gran % 65.7, Lymphocytes % 19.0 L, Monocytes % 13.4 H, Eosinophils % 1.6, Basophils % 0.3, Absolute Granulocytes 5.2, Absolute Lymphocytes 1.5, Absolute Monocytes 1.1 H, Absolute Eosinophils 0.1, Absolute Basophils 0 05/19/17 0557: Urine Opiates Screen < 100.00, Methadone Screen < 40, Barbiturate Screen < 60, Ur Phencyclidine Scrn < 6.00, Amphetamines Screen < 100, U Benzodiazepines Scrn < 85, Urine Cocaine Screen < 50, Urine Cannabis Screen < 5.00 Assessment/Plan Assessment: Mr. 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 He presents to the hospital with rash and facial pain. In the emergency department his vitals were temperature 98.2, heart rate 109, respiratory 20, blood pressure 151/89 saturating 96% on room air. He states that he had not taken any of his medications for the day. CBC revealed white blood cell count 9.2, H&H 14.3/41.5. Platelets 270. BMP revealed sodium 148, potassium 5.2, chloride 108, BUNs/creatinine 11/0.8. Valproic acid 19.0. CT of the sinus/face with contrast revealed a a new wound/abscess formation superficial to the left frontal sinus, with the infection contiguous with the opacified frontal sinus. No convincing epidural extension of the abscess was noted. Additional multifocal nasal sinus disease was noted. Problem list assessment and plan Superficial abscess with extension to the frontal sinus * Continue IV Vanco/Unasyn to cover for MRSA given his previous history, and for anaerobic and gram negatives. * CORRECTION organisms causing frontal abscess with possible extension to brain are streptococcus spp (especially S. milleri), haemophilus, bacteroides, and fusobacterium. * A1C to evaluate for diabetes and immunocompromised state given his previous multiple abcsesses. * ENT consult in the am Chronic medical problems * continue HTN meds, and consider titrating up if he remaibs hypertensive * continue seizure meds * CIWA given his previous hx of alcohol abuse. FC Lovenox Diabetic Diet pian path as ordered Problem List: 1. Acute abscess of frontal sinus 2. Alcohol abuse Pain Ratin Pain Location: NA Pain Goal: Remain pain free Pain Plan: see AP Tomorrow's Labs & Rationales: MARIAH Edmonds MD,Hortensia 05/20/17 1055: Attending MD Review Statement Attending Statement Attending MD Statement: examined this patient, discuss w/resident/PA/B2B SALES EXECUTIVE, agreed w/resident/PA/B2B SALES EXECUTIVE, reviewed EMR data (avail), discussed with nursing, reviewed images Attending Assessment/Plan: 56-year-old male past medical history of 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 The abscess is communicating internally and now there is some drainage externally as well. Because of the history of MRSA, he is on IV Vanco and we've added Unasyn to cover for gram negatives and anaerobes. ENT is scheduled to see him today to see if any more drainage is needed. Patient was upset that he was nothing by mouth but we started a diet now as I highly doubt he is going to need any invasive abscess drainage today. Will monitor closely.
[2017-05-20 09:25] LABS: ABSOLUTE BASOPHIL COUNT 0 /CUMM (0.0-0.2); ABSOLUTE EOSINOPHIL COUNT 0.1 /CUMM (0.0-0.7); ABSOLUTE GRANULOCYTE CT 5.2 /CUMM (1.4-6.5); ABSOLUTE LYMPH COUNT 1.5 /CUMM (1.2-3.4); ABSOLUTE MONOCYTE COUNT 1.1 /CUMM (0.10-0.60); BASOPHIL % 0.3 % (0.0-2.0); EOSINOPHIL % 1.6 % (0-5); GRANULOCYTE % 65.7 % (42.2-75.2); HEMATOCRIT 38.2 % (42-52); MEAN CORPUSCULAR HGB 34.3 PG (27.0-31.0); MEAN CORPUSCULAR HGB CONC 34.5 G/DL (33.0-37.0); MEAN CORPUSCULAR VOLUME 99.6 FL (80.0-94.0); PLATELET COUNT 249 /CUMM (130-400); RBC DISTRIBUTION WIDTH 13.8 % (11.5-14.5); RED BLOOD CELL CT 3.84 /CUMM (4.70-6.10); WHITE BLOOD CELL COUNT 7.9 /CUMM (4.8-10.8)
[2017-05-20 14:44] VITALS: BP 140/82
[2017-05-20 22:26] VITALS: BP 134/84
[2017-05-21 02:35] VITALS: BP 130/76
[2017-05-21 06:20] VITALS: BP 134/76
--- NOTE | 2017-05-21 07:46 | PN- Housestaff ---
RoelMckenzie 05/21/17 0746: Subjective Follow-up For: #Superficial abscess with extension to the frontal sinus #Chronic medical problems including HTN, seizure, alcohol abuse Subjective: No overnight event. Patient had minimal drainage from abscess ovenight. Still pending ENT consult. Review of Systems Constitutional: Reports: see HPI. Objective Last 24 Hrs of Vital Signs/I&O Vital Signs Date Time Temp Pulse Resp B/P B/P Pulse O2 O2 Flow FiO2 Mean Ox Delivery Rate 05/21 1200 98.8 57 18 130/88 97 Room Air / 0919 134/76 02/05 0919 64 134/76 02/05 0620 98.3 64 20 134/76 95 Room Air / 0235 98.4 91 20 130/76 96 Room Air / 2226 98.9 70 20 134/84 96 Room Air / 2125 70 134/84 / 1444 98.2 74 20 140/82 97 Room Air Intake & Output 05/21 1600 / 0800 05/21 0000 Intake Total 350 950 Output Total Balance 350 950 Intake, IV 250 150 Intake, Oral 100 800 Physical Exam General Appearance: Alert, Oriented X3, Cooperative, No Acute Distress HEENT: Frontal sinus abscess mostly resolved with residual swelling and tenderness much improved from before, minimal drainage per patient, but not active draining during examine. Cardiovascular: Regular Rate Lungs: Clear to Auscultation, Normal Air Movement Abdomen: Soft, No Tenderness Current Medications: Current Medications Sig/Festus Start time Last Medication Dose Route Stop Time Status Admin Acetaminophen 650 MG Q6P PRN 05/19 1830 AC PO Amlodipine Besylate 10 MG DAILY 05/19 1824 AC 05/21 PO 0919 Ampicillin Sodium/ 3,000 MG Q6 05/19 2359 AC 05/21 Sulbactam Sodium IV 1208 Sodium Chloride 100 ML Cyclobenzaprine HCl 5 MG TIDPRN PRN 05/19 1830 AC PO Divalproex Sodium 2,000 MG DAILY 05/20 1000 AC 05/21 PO 0918 Enoxaparin Sodium 40 MG DAILY 05/20 1000 AC 05/21 SC 0920 Folic Acid 1 MG DAILY 05/20 1000 AC 05/21 PO 0918 Gabapentin 600 MG BID 05/19 2200 AC 05/21 PO 0919 Ibuprofen 600 MG Q6P PRN 05/19 1830 AC 05/21 PO 0010 Ketorolac 15 MG Q6P PRN 05/19 1830 AC 05/20 Tromethamine IV 0623 Metoprolol Tartrate 100 MG BID 05/19 2200 AC 05/21 PO 0919 Omeprazole 20 MG DAILY AC 05/20 0700 AC 05/21 PO 0553 Sodium Chloride 2 SPRAY Q4P PRN 05/19 1830 AC STEPHANIE Thiamine HCl 100 MG DAILY 05/20 1000 AC 05/21 PO 0919 Vancomycin HCl 1,500 MG DAILY 05/20 1000 AC 05/21 Dextrose/Water 250 ML IV 0920 Last 24 Hrs of Lab/Talha Results Last 24 Hrs of Labs/Mics: Microbiology 05/21 132 BODY FLUID: Body Fluid Culture - ORD 05/21 132 BODY FLUID: Gram Stain - ORD Assessment/Plan Assessment: Mr. 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 He presents to the hospital with rash and facial pain. In the emergency department his vitals were temperature 98.2, heart rate 109, respiratory 20, blood pressure 151/89 saturating 96% on room air. He states that he had not taken any of his medications for the day. CBC revealed white blood cell count 9.2, H&H 14.3/41.5. Platelets 270. BMP revealed sodium 148, potassium 5.2, chloride 108, BUNs/creatinine 11/0.8. Valproic acid 19.0. CT of the sinus/face with contrast revealed a a new wound/abscess formation superficial to the left frontal sinus, with the infection contiguous with the opacified frontal sinus. No convincing epidural extension of the abscess was noted. Additional multifocal nasal sinus disease was noted. Problem list assessment and plan Superficial abscess with extension to the frontal sinus * Continue IV Vanco/Unasyn to cover for MRSA given his previous history, and for anaerobic and gram negatives. * FDC organisms causing frontal abscess with possible extension to brain are streptococcus spp (especially S. milleri), haemophilus, bacteroides, and fusobacterium. * A1C to evaluate for diabetes and immunocompromised state given his previous multiple abcsesses. * ENT consult over the phone recommended drainage culture however may not be revealing much after ABX use. Would defer to outpatient follow up. Chronic medical problems * continue HTN meds, and consider titrating up if he remaibs hypertensive * continue seizure meds * CIWA given his previous hx of alcohol abuse. FC Lovenox Diabetic Diet pitameka path as ordered Problem List: 1. Acute abscess of frontal sinus 2. 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 The abscess is communicating internally and now there is some drainage externally as well. Patient swelling has improved with less drainage with anitbiotics and swtiched to PO doxycycline at discharge. ENT consulted twice on phone, once in ER by Dr Scott and now on floors who recommend outpatient follow up within a week of discharge. Patient expalined in detail about management plan and he agrees to management. Referral for outpatient ENT given. Vitals stable at discharge.
[2017-05-21 12:00] VITALS: BP 130/88
[2017-05-21 14:36] VITALS: BP 132/88
[2017-05-21] MEDS ORDERED: AUGMENTIN 875-1 EACH PO (14:58)
--- NOTE | 2017-05-21 14:59 | Patient Discharge Instructions ---
Discharge Instructions General Discharge Information You were seen/treated for: #Superficial abscess with extension to the frontal sinus #Chronic medical problems including HTN, seizure, alcohol abuse Special Instructions: - Please follow up with your primary care physician within 1-2 week of discharge. Inform your primary care physician of this admission to [facility]. - Continue your current medications per discharge instructions. - Please watch for these problems: Fever, Chills, Nausea, Vomiting, Shortness of Breath, Productive Cough, Chest Pain/Discomfort, Abdominal Pain, Active Bleeding or Bloody urine/stool. Diet Continue normal diet: Yes Activity Full Activity/No Limits: Yes Acute Coronary Syndrome Inclusion Criteria At DC or during hospital stay patient has or had the following: ACS DIAGNOSIS No Discharge Core Measures Meds if any: Prescribed or Continued at Discharge Meds if any: NOT Prescribed or Continued at Discharge Congestive Heart Failure Inclusion Criteria At DC or during hospital stay patient has or had the following: CHF DIAGNOSIS No Discharge Core Measures Meds if any: Prescribed or Continued at Discharge Meds if any: NOT Prescribed or Continued at Discharge Cerebrovascular accident Inclusion Criteria At DC or during hospital stay patient has or had the following: CVA/TIA Diagnosis No Discharge Core Measures Meds if any: Prescribed or Continued at Discharge Meds if any: NOT Prescribed or Continued at Discharge Venous thromboembolism Inclusion Criteria VTE Diagnosis No VTE Type NONE VTE Confirmed by (Test) NONE Discharge Core Measures - Per Current guidelines, there needs to be overlap - treatment for the first 5 days of Warfarin therapy. - If discharged on Warfarin prior to 5 days of - overlap therapy, the patient will need to be - assessed for post discharge needs including - *Post discharge parental anticoagulation - *Warfarin and/or parental anticoagulation education - *Follow up date to check INR post discharge At least 5 days overlap therapy as Inpatient No Meds if any: Prescribed or Continued at Discharge Note: Overlap Therapy is Warfarin and Anticoagulant Meds if any: NOT Prescribed or Continued at Discharge
[2017-05-21] MEDS ORDERED: DOXYCYCLINE HY100 M4 PO ×2 (15:07→15:47)
--- NOTE | 2017-05-21 15:10 | Discharge Summary ---
Visit Information Visit Dates Admission Date: 05/19/17 Discharge Date: 05/21/2017 Hospital Course Course Attending Physician: Desiree Valencia MD Primary Care Physician: Fidelia GONSALEZ,Marycarmen Osborne Hospital Course: Mr. 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 He presents to the hospital with rash and facial pain. In the emergency department his vitals were temperature 98.2, heart rate 109, respiratory 20, blood pressure 151/89 saturating 96% on room air. He states that he had not taken any of his medications for the day. CBC revealed white blood cell count 9.2, H&H 14.3/41.5. Platelets 270. BMP revealed sodium 148, potassium 5.2, chloride 108, BUNs/creatinine 11/0.8. Valproic acid 19.0. CT of the sinus/face with contrast revealed a a new wound/abscess formation superficial to the left frontal sinus, with the infection contiguous with the opacified frontal sinus. No convincing epidural extension of the abscess was noted. Additional multifocal nasal sinus disease was noted. Problem list assessment and plan #Superficial abscess with extension to the frontal sinus Upon admission, patient was started on IV Vanco/Unasyn to cover for MRSA from previous history and anaerobic/gram negatives as possible bacteria causing the frontal sinus. Patient's abscess size and drainage resolved over 3 days with minimal drainage and tenderness on day 3. ENT consult recommended outpatient follow up. Patient was discharged with 10 more days of Doxycycline to complete a 14 day course of antibiotic treatment. #Chronic medical problems including Hypertension, history of alcohol abuse, and seizure disorders Patient was continued on home doses of hypertensive meds, seizure meds, and was kept on CIWA protocol as needed for his previous history of alcohol abuse, despite he did not receive any Ativan over hospital stay. Full Code Lovenox Diabetic Diet Pain path as ordered Allergies: Coded Allergies: phenytoin (From DILANTIN) (Severe, MIGRAINES 03/31/16) Pertinent Lab Results: SERVICE DATE: 05/19/17-1224 EXAM TYPE: CAT - CT FACE/SINUS WITH CONTRAST IMPRESSION: New open wound/abscess formation superficial to the left frontal sinus just to the left of midline (see cabrera image). The infection is contiguous with the opacified frontal sinus, with postprocedural changes of the frontal bone redemonstrated. No convincing epidural extension of the abscess. Other multifocal paranasal sinus disease, worst in the left ethmoid air cells redemonstrated. Laboratory Tests 05/20/17 0820: Anion Gap 12, Estimated GFR > 60, BUN/Creatinine Ratio 22.5, CBC w Diff NO MAN DIFF REQ, RBC 3.84 L, MCV 99.6 H, MCH 34.3 H, MCHC 34.5, RDW 13.8, MPV 7.0 L , Gran % 65.7, Lymphocytes % 19.0 L, Monocytes % 13.4 H, Eosinophils % 1.6, Basophils % 0.3, Absolute Granulocytes 5.2, Absolute Lymphocytes 1.5, Absolute Monocytes 1.1 H, Absolute Eosinophils 0.1, Absolute Basophils 0 05/19/17 5057: Urine Opiates Screen < 100.00, Methadone Screen < 40, Barbiturate Screen < 60, Ur Phencyclidine Scrn < 6.00, Amphetamines Screen < 100, U Benzodiazepines Scrn < 85, Urine Cocaine Screen < 50, Urine Cannabis Screen < 5.00 Disposition Summary Disposition Principal Diagnosis: #Superficial abscess with extension to the frontal sinus #Chronic medical problems including HTN, seizure, alcohol abuse Additional Diagnosis: As Above Discharge Disposition: home health services Discharge Instructions General Discharge Information Code Status: Full Code Patient's Diet: Diabetic Diet Patient's Activity: As Tolerated Follow-Up Instructions/Appts: - Please follow up with your primary care physician within 1-2 week of discharge. Inform your primary care physician of this admission to [facility]. - Continue your current medications per discharge instructions. - Please watch for these problems: Fever, Chills, Nausea, Vomiting, Shortness of Breath, Productive Cough, Chest Pain/Discomfort, Abdominal Pain, Active Bleeding or Bloody urine/stool. Medications at Discharge Discharge Medications: Continue taking these medications: Metoprolol Tartrate (Metoprolol Tartrate) 100 MG TABLET 1 Tablet ORAL TWICE DAILY Qty = 180 Comments: Last Taken: 05/21/17 Time: 0800 AM Gabapentin (Neurontin) 300 MG CAPSULE 2 Capsule ORAL TWICE DAILY Qty = 30 Comments: Last Taken: 05/21/17 Time: 0800 AM Amlodipine Besylate (Norvasc) 10 MG TABLET 1 Tablet ORAL DAILY Qty = 30 Comments: Last Taken: 05/21/17 Time: 0800 AM Divalproex Sodium (Divalproex Sodium ER) 500 MG TAB.ER.24H 4 Tablet ORAL DAILY Qty = 90 Comments: Last Taken: 05/21/17 Time: 0800 Mometasone Furoate (Nasonex) 50 MCG SPRAY.PUMP 2 Mabie Both sides of nose DAILY Qty = 1 Pantoprazole Sodium (Pantoprazole Sodium) 20 MG TABLET.DR 1 Tablet ORAL DAILY Qty = 30 Folic Acid (Folic Acid) 1 MG TABLET 1 Tablet ORAL DAILY Qty = 30 Comments: Last Taken: 05/21/17 Time: 0800 Thiamine HCl (Vitamin B-1) 100 MG TABLET 1 Tablet ORAL DAILY Qty = 100 Comments: Last Taken: 05/21/17 Time: 0800 Ibuprofen (Ibuprofen) 600 MG TABLET 1 Tablet ORAL THREE TIMES DAILY as needed for pain Qty = 30 Instructions: with food Cyclobenzaprine HCl (Cyclobenzaprine HCl) 5 MG TABLET 1 Tablet ORAL THREE TIMES A DAY NEEDED as needed for muscle strain Qty = 8 Comments: NOT GIVEN AT HOSPITAL Tramadol HCl (Ultram) 50 MG TABLET 1 Tablet ORAL THREE TIMES DAILY Start taking the following new medications: Doxycycline Hyclate (Doxycycline Hyclate) 100 MG TABLET 1 Tablet ORAL TWICE DAILY Qty = 20 No Refills Instructions: . Copies To: Fidelia GONSALEZ,Marycarmen Osborne Attending MD Review Statement Documenting Attending: Desiree Valencia MD Other Findings: 56-year-old male past medical history of 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 The abscess is communicating internally and now there is some drainage externally as well. Patient swelling has improved with less drainage with anitbiotics and swtiched to PO doxycycline at discharge. ENT consulted twice on phone, once in ER by Dr Scott and now on floors who recommend outpatient follow up within a week of discharge. Patient expalined in detail about management plan and he agrees to management. Referral for outpatient ENT given. Vitals stable at discharge.
== END 2017-05-21 16:00 | disposition home health service (06) | DRG 383 ==
LOC: ERH 12:01 → ERHI 17:18 → 2NA 17:18 → ENRESERV 20:30 → 2NA 23:07
PROVIDERS: Internal Medicine; Internal Medicine Cardiovascular Disease
DX: L02.01 Cutaneous abscess of face (principal); J01.10 Acute frontal sinusitis, unspecified; G40.909 Epilepsy, unspecified, not intractable, without status epilepticus; I10 Essential (primary) hypertension; F10.10 Alcohol abuse, uncomplicated; Y90.5 Blood alcohol level of 100-119 mg/100 ml; M54.9 Dorsalgia, unspecified; G89.29 Other chronic pain; K21.9 Gastro-esophageal reflux disease without esophagitis; Z91.14 Patient's other noncompliance with medication regimen
CPT/HCPCS: 2NAP; 87075; 80307; 82436; 87389; 87804; 87804-59; G0480; J0131; J0713; J1650; J3370; J3490; J7060

== ENCOUNTER 2017-06-08 03:38 | Emergency (ER) | payer OTHER ==
[~2017-06-08 03:38] MED LIST changes: +CYCLOBENZAPRINE10 M1 PO; +IMODIUM A-D2 M1 PO; +ULTRAM50 M1 PO
[2017-06-08 08:15] VITALS: BP 110/78
--- NOTE | 2017-06-08 08:37 | ED NECK/BACK PAIN COMPLAINT ---
History of Present Illness General Chief Complaint: Low Back Pain/Injury Stated Complaint: BACK PAIN, WAS HERE FEW HOURS AGO Source: patient Exam Limitations: no limitations Vital Signs & Intake/Output Vital Signs & Intake/Output Vital Signs Date Time Temp Pulse Resp B/P B/P Pulse O2 O2 Flow FiO2 Mean Ox Delivery Rate 06/08 0815 98.0 84 20 110/78 96 Room Air Allergies Coded Allergies: phenytoin (From DILANTIN) (Severe, MIGRAINES 03/31/16) Reconcile Medications Amlodipine Besylate (Norvasc) 10 MG TABLET 1 TAB PO DAILY htn (Reported) Cyclobenzaprine HCl 10 MG TABLET 1 TAB PO TID PRN muscle spasm Cyclobenzaprine HCl 5 MG TABLET 1 TAB PO TIDPRN PRN muscle strain Divalproex Sodium (Divalproex Sodium ER) 500 MG TAB.ER.24H 4 TAB PO DAILY SEIZURES (Reported) Doxycycline Hyclate 100 MG TABLET 1 TAB PO BID Frontal Abscess . Folic Acid 1 MG TABLET 1 TAB PO DAILY SUPPLEMENT (Reported) Gabapentin (Neurontin) 300 MG CAPSULE 2 CAP PO BID Alcohol cessation ( Reported) Ibuprofen 600 MG TABLET 1 TAB PO Q6PRN PRN pain with food Ibuprofen 600 MG TABLET 1 TAB PO TID PRN pain with food Loperamide HCl (Imodium A-D) 2 MG TABLET 0 PO SEE ADMIN CRITERIA PRN diarrhea 1 tab after each loose stool up to 7 per day Metoprolol Tartrate 100 MG TABLET 1 TAB PO BID BP (Reported) Mometasone Furoate (Nasonex) 50 MCG SPRAY.PUMP 2 SPRAY NASB DAILY rhinitis Pantoprazole Sodium 20 MG TABLET.DR 1 TAB PO DAILY GI (Reported) Thiamine HCl (Vitamin B-1) 100 MG TABLET 1 TAB PO DAILY SUPPLEMENT (Reported) Tramadol HCl (Ultram) 50 MG TABLET 1 TAB PO TID PAIN (Reported) Triage Note: TRIAGE: PATIENT WAS IN WAITING ROOM, WAITING FOR [facility] TO PICK HIM UP, WAS TOLD THEY WILL BE HERE APPROX 6AM, PATIENT STATES "SO I'M GOING TO SIGN BACK IN SO I CAN HAVE PAIN MEDS WHILE I WAIT." DENIES ANY NEW COMPLAINTS. REPORTING CONTINUED BACK PAIN, "NO CHANGES." Triage Nurses Notes Reviewed? yes Onset: Abrupt Duration: week(s): (5-6), constant Timing: recent history Location: lumbar spine HPI: 56-year-old male that was seen here earlier a few hours ago here in [facility] ED bu dr starr and had a CT scan of his lumbar spine and CT scan of his abdomen and pelvis along with blood work and was diagnosed with sciatica diarrhea and discharged. he signs back into the emergency room because he was waiting on his cab in the waiting room. According to the patient a cab would not be here for another few hours and he wanted to sign back in requesting something for the pain in his back. His prescriptions are going to be delivered to his house. There is no new symptoms. He has been having left lower back pain has been going on for the past 5 weeks. The pain radiates down his left leg. All other symptoms are baseline. Patient just had a complete workup which was negative. Past History Travel History Traveled to [place] past 21 day No Medical History Any Pertinent Medical History? 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 No Review of Systems Review of Systems Constitutional: Reports: no symptoms. Eyes: Reports: no symptoms. Ears, Nose, Throat, Mouth: Reports: no symptoms. Respiratory: Reports: no symptoms. Cardiovascular: Reports: no symptoms. Gastrointestinal/Abdominal: Reports: see HPI. Musculoskeletal: Reports: no symptoms. Skin: Reports: no symptoms. Neurological/Psychological: Reports: no symptoms. All Other Systems: Reviewed and Negative Physical Exam Physical Exam General Appearance: well developed/nourished, mild distress Head: atraumatic Eyes: Bilateral: normal appearance. Ears, Nose, Throat, Mouth: hearing grossly normal, moist mucous membrane Neck: normal inspection Respiratory: normal breath sounds, no respiratory distress Back: normal inspection, no tenderness left lower back Extremities: normal range of motion Motor: Deficit L4 Right: No Deficit L4 Left: No Deficit L5 Right: No Deficit L5 Left: No Deficit S1 Right: No Deficit S1 Right: No Neurologic/Psych: awake, alert, oriented x 3, normal mood/affect Skin: intact, normal color, warm/dry Core Measures CVA/TIA Diagnosis: No Progress Differential Diagnosis: C spine injury, cauda equina syn, herniated disc, myofascial strain, sciatica Plan of Care: Current Medications Sig/Festus Start time Last Medication Dose Stop Time Status Admin Ketorolac 30 MG ONE ONE 06/08 844 UNVr Tromethamine 06/08 845 (Toradol) Comments: 06/08/2017 8:43:56 AM Patient clinically looks well. In no apparent distress. There is no acute new symptoms. Patient was given Toradol and sent back to the waiting room. His ride should be here shortly. Departure Departure Disposition: HOME OR SELF CARE Condition: Stable Clinical Impression Primary Impression: Sciatica Referrals: Fidelia GONSALEZ,Marycarmen Osborne (PCP/Family) Additional Instructions: Take medications that were prescribed 2. Follow-up with your PCP. Return if any concerns worsening symptoms. Please go over all results of today's visit with your primary care doctor. Contact your primary care doctor to let them know you were here in the emergency room. There may be nonspecific findings which may not be related to your visit today here in the emergency room but may require further evaluation and chronic monitoring by your primary care doctor. If you had a laceration today the chance of foreign body always remains. You should follow-up with your primary care doctor for recheck in 3-5 days for a wound check. If you had an x-ray done there is a chance that a fracture could have been missed on initial read and you should follow-up with your primary care doctor for repeat x-rays if symptoms persist. If your blood pressure was elevated here in the emergency room please have rechecked by [facility] primary care doctor within the next 48. If you were prescribed a narcotic here in the emergency room or any type of controlled substances you're not allowed to drive while taking this medication or operate any type of heavy machinery. Narcotics can make you feel lightheaded dizziness nausea and can cause constipation. You may need to pick out hand a stool softener. Thank you for choosing [facility] emergency room. Please return to the emergency room immediately if you have any other concerns worsening of symptoms. Departure Forms: Customer Survey General Discharge Information
== END 2017-06-08 08:44 ==
LOC: ERH 03:38
DX: M54.42 Lumbago with sciatica, left side (principal)
CPT/HCPCS: 96372; J1885

== ENCOUNTER 2017-07-14 15:10 | Emergency (ER) | payer OTHER ==
[~2017-07-14 15:10] MED LIST changes: +AVELOX400 M1 PO
--- NOTE | 2017-07-14 15:43 | ED NECK/BACK PAIN COMPLAINT ---
History of Present Illness General Chief Complaint: Neck/Upper Back Pain/Injury Stated Complaint: NECK PAIN X 5 DAYS Source: patient, old records Exam Limitations: no limitations Vital Signs & Intake/Output Vital Signs & Intake/Output Vital Signs Date Time Temp Pulse Resp B/P B/P Pulse O2 O2 Flow FiO2 Mean Ox Delivery Rate 07/14 1522 97.0 91 20 156/100 98 Allergies Coded Allergies: phenytoin (From DILANTIN) (Severe, MIGRAINES 03/31/16) Reconcile Medications Amlodipine Besylate (Norvasc) 10 MG TABLET 1 TAB PO DAILY htn (Reported) Divalproex Sodium (Divalproex Sodium ER) 500 MG TAB.ER.24H 4 TAB PO DAILY SEIZURES (Reported) Folic Acid 1 MG TABLET 1 TAB PO DAILY SUPPLEMENT (Reported) Gabapentin (Neurontin) 300 MG CAPSULE 2 CAP PO BID Alcohol cessation ( Reported) Metoprolol Tartrate 100 MG TABLET 1 TAB PO BID BP (Reported) Pantoprazole Sodium 20 MG TABLET.DR 1 TAB PO DAILY GI (Reported) Triage Note: PER PT L NECK PAIN INCREASES WITH MOVEMENT, PAINN X 5 DAYS UNKNOWN INJURY, PER PT HX OF BACK DISC HERNIATION THAT WILL REQUIRE SUREGERY APPT SUNDAY AT [facility], PER PT PAIN IN BACK AND DOWN LEG FROM PREVIOUS NECK PAIN AND THROBBING NEW X 5 DAYS Triage Nurses Notes Reviewed? 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 He denies any peripheral neurological symptoms such as weakness, numbness, or tingling. He has full strength and range of motion of his arms and legs. He experiences pain turning his head to the left. No trauma. He also reports swelling of his communicating frontal sinus ulcer without pain. There is mild discharge. He was recently treated with Doxycycline. Past History Travel History Traveled to [place] past 21 day No Medical History Any Pertinent Medical History? 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 No Review of Systems Review of Systems Constitutional: Reports: no symptoms. Eyes: Reports: no symptoms. Ears, Nose, Throat, Mouth: Reports: no symptoms. Respiratory: Reports: no symptoms. Cardiovascular: Reports: no symptoms. Gastrointestinal/Abdominal: Reports: no symptoms. Musculoskeletal: Reports: no symptoms. Skin: Reports: no symptoms. Neurological/Psychological: Reports: no symptoms. All Other Systems: Reviewed and Negative Physical Exam Physical Exam General Appearance: well developed/nourished, mild distress Head: left frontal sinus ulcer Eyes: Bilateral: normal appearance. Ears, Nose, Throat, Mouth: hearing grossly normal Neck: normal inspection, supple, ROM limited to the left by pain, mild left paraspinal muscle tenderness Respiratory: normal breath sounds Cardiovascular: regular rate/rhythm Gastrointestinal: soft, non-tender Back: normal inspection Extremities: normal range of motion Straight Leg Raising: Right: Negative. Left: Negative. Neurologic/Psych: awake, alert, oriented x 3, normal mood/affect Skin: intact, normal color, warm/dry Core Measures CVA/TIA Diagnosis: No Progress Differential Diagnosis: AAA, aortic dissection, C spine injury, carotid dissection, cauda equina syn, herniated disc, myofascial strain, pyelo/UTI, sciatica, spinal cord inj, thoracic outlet syn, T/L spine injury, ureterolithiasis Plan of Care: Will discharge home with outpatient follow up with ENT and his PCP. Departure Departure Disposition: HOME OR SELF CARE Condition: Stable Clinical Impression Primary Impression: Neck muscle strain Secondary Impressions: Frontal sinusitis Referrals: Fidelia GONSALEZ,Marycarmen Osborne (PCP/Family) Additional Instructions: Follow up with your ENT and PCP. Return to ER if new or worsening symptoms. Departure Forms: Customer Survey General Discharge Information Prescriptions: Current Visit Scripts Prednisone 1 TAB PO BID #10 TAB Doxycycline Hyclate 1 CAP PO BID #14 CAP Cyclobenzaprine HCl 1 TAB PO TID #30 TAB
[2017-07-14] MEDS ORDERED: DOXYCYCLINE HY100 M2 PO (16:53)
[2017-07-14] MEDS ORDERED: CYCLOBENZAPRINE10 M1 PO (16:53)
[2017-07-14] MEDS ORDERED: PREDNISONE20 M1 PO (16:53)
[2017-07-14 16:57] VITALS: BP 146/89
== END 2017-07-14 17:14 ==
LOC: ERH 15:10
DX: S16.1XXA Strain of muscle, fascia and tendon at neck level, initial encounter (principal); J01.10 Acute frontal sinusitis, unspecified; X58.XXXA Exposure to other specified factors, initial encounter; Y92.9 Unspecified place or not applicable; Y93.9 Activity, unspecified
CPT/HCPCS: 96372; J1885

== ENCOUNTER 2017-08-02 13:30 | Emergency (ER) | payer OTHER ==
[~2017-08-02] VITALS: Ht 172.7 cm; Wt 119.3 kg
[~2017-08-02 13:30] MED LIST changes: +DOXYCYCLINE HY100 M2 PO; +PREDNISONE20 M1 PO
[2017-08-02 19:06] VITALS: BP 152/75
--- NOTE | 2017-08-02 19:10 | ED GENERAL ADULT ---
History of Present Illness General Chief Complaint: General Adult Stated Complaint: PAIN S/P FALL X3 MONTHS AGO Source: patient, old records Exam Limitations: no limitations Allergies Coded Allergies: phenytoin (From DILANTIN) (Severe, MIGRAINES 03/31/16) Reconcile Medications Amlodipine Besylate (Norvasc) 10 MG TABLET 1 TAB PO DAILY htn (Reported) Cyclobenzaprine HCl 10 MG TABLET 1 TAB PO TID NECK Divalproex Sodium (Divalproex Sodium ER) 500 MG TAB.ER.24H 4 TAB PO DAILY SEIZURES (Reported) Doxycycline Hyclate 100 MG CAPSULE 1 CAP PO BID SINUSITIS Folic Acid 1 MG TABLET 1 TAB PO DAILY SUPPLEMENT (Reported) Gabapentin (Neurontin) 300 MG CAPSULE 2 CAP PO BID Alcohol cessation ( Reported) Metoprolol Tartrate 100 MG TABLET 1 TAB PO BID BP (Reported) Pantoprazole Sodium 20 MG TABLET.DR 1 TAB PO DAILY GI (Reported) Prednisone 20 MG TABLET 1 TAB PO BID SINUSITIS Triage Note: PT TO ED WITH C/O LEFT HIP PAIN S/P FALL IN APRIL, HAD MRI 2 WEEKS AFTER THE INTIAL FALL, TOLD TO GO FOR PHYSICAL THERAPY "HAVEN'T BEEN, I WALK ENOUGH, DON'T KNOW IF I WANT TO DO THAT". Triage Nurses Notes Reviewed? yes Onset: Gradual Duration: week(s): (3 MONTHS), constant, continues in ED, getting worse Timing: single episode today Injury Environment: home Severity: moderate, severe Severity Numbers: 8 No Modifying Factors: none Associated Symptoms: back pain HPI: 56 year old male PMH of tbi, seizure d/o, etoh abuse presents for eval of multipe complaints. he reorts taht he has a laceration to his tongue that occurred Sunday night after a possible seizure. Patient states that he has a history of a seizure disorder related to a TBI but also alcohol withdrawal seizures. Patient states that he had been drinking at least 36 ounces of beer daily up until Sunday when he stops drinking. He states Sunday he remembers blacking out and then waking up on the floor with blood coming from his tongue. He states that he did not seek any evaluation. He had no chest pain or shortness of breath. He has been taking his Depakote as directed. He has not drank since Sunday. No additional seizures. He also is reporting acute on chronic lower back pain. He states that the pain is located in his left lower back and left hip. This is been present since a fall 3 months ago. He recently had an MRI done that did not show any acute trauma. He is in process of starting physical therapy. He is not currently taking any medicine for this. This been no additional trauma no numbness or tingling no bowel or bladder dysfunction no fevers. He is not requesting alcohol detox. He denies any suicidal or homicidal ideation no hallucinations. No abdominal pain nausea vomiting or headaches no tremors. (Gianni Connell) Vital Signs & Intake/Output Vital Signs & Intake/Output Vital Signs Date Time Temp Pulse Resp B/P B/P Pulse O2 O2 Flow FiO2 Mean Ox Delivery Rate 08/02 1906 97.5 96 20 152/75 08/02 1904 97.5 96 20 152/75 97 Room Air 08/02 1610 97.0 77 20 160/80 97 Room Air 08/02 1409 97.4 70 18 120/86 96 Room Air Room Air ED Intake and Output 08/03 0000 08/02 1200 Intake Total Output Total Balance Patient 263 lb Weight Weight Reported by Patient Measurement Method (Patricia GONSALEZ,Aleksey Olson) Past History Travel History Traveled to [place] past 21 day No Medical History Any Pertinent Medical History? 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 No (Gianni Connell) Review of Systems Review of Systems Constitutional: Reports: no symptoms. EENTM: Reports: mouth pain. Respiratory: Reports: no symptoms. Cardiovascular: Reports: no symptoms. GI: Reports: no symptoms. Genitourinary: Reports: no symptoms. Musculoskeletal: Reports: see HPI, back pain, muscle pain, muscle stiffness. Skin: Reports: no symptoms. Neurological/Psychological: Reports: no symptoms. Hematologic/Endocrine: Reports: no symptoms. Immunologic/Allergic: Reports: no symptoms. All Other Systems: Reviewed and Negative (Gianni Connell) Physical Exam Physical Exam General Appearance: well developed/nourished, no apparent distress, alert, awake Head: atraumatic, normal appearance Eyes: Bilateral: normal appearance, PERRL, EOMI. Ears, Nose, Throat: hearing grossly normal, there is a healing laceration to the posterior left lateral aspectof the tongue.there is surrounding bruising. No active bleeding no surrounding erythema and no discharge. no throat swelling no swelling of the tongue patient is handling secretions no difficulty speaking Neck: normal inspection, supple, full range of motion, no midline tenderness Respiratory: normal breath sounds, chest non-tender, no respiratory distress, lungs clear Cardiovascular: regular rate/rhythm, normal peripheral pulses Peripheral Pulses: 2+ radial (R), 2+ radial (L) Gastrointestinal: normal bowel sounds, soft, non-tender, no organomegaly Back: normal inspection, normal range of motion, there is tenderness to palpation of the left-sided lumbar paraspinal muscles. No bruising swelling or abrasions no midline tenderness no step-offs or deformities Extremities: normal inspection, normal range of motion, no edema, there is pain with range of motion of the left hip. Pain to palpation of the left hip. Patient is able to walk and bear weight no other joint swelling or pain Neurologic/Psych: no motor/sensory deficits, awake, alert, oriented x 3, normal gait, normal mood/affect Reflexes: 1+: knee (R), knee (L). Skin: intact, normal color, warm/dry Lymphatic: no anterior cervical umm Core Measures ACS in differential dx? No CVA/TIA Diagnosis: No Sepsis Present: No Sepsis Focused Exam Completed? No (Gianni Connell) Progress Differential Diagnoses I considered the following diagnoses in my evaluation of the patient: [Seizure disorder, alcohol withdrawal seizure, DTs, fracture, intracranial hemorrhage, intracranial mass, herniated disc, cauda equina, electrolyte abnormality] Diagnostic Imaging: Viewed by Me: CT Scan. Discussed w/RAD: CT Scan. Radiology Impression: PATIENT: KATY REDMOND PRESENT AGE: 56 PATIENT ACCOUNT NO: [id number] : 61 LOCATION: [facility] ORDERING PHYSICIAN: Gianni ROBERTS SERVICE DATE: 08/02/17 EXAM TYPE: CAT - CT CERV SPINE WO IV CONTRAST; CT HEAD WO IV CONTRAST EXAMINATION: CT HEAD CT CERVICAL SPINE CLINICAL INFORMATION: Trauma. Seizure. COMPARISON: CT head dated 11/26/[address] facial bones/sinuses dated 05/19/2017 was reviewed. TECHNIQUE: Noncontrast CT of the head was performed. Noncontrast CT of the cervical spine was performed. FINDINGS: CT head: No intracranial hemorrhage. No evidence of acute/subacute cerebral or cerebellar infarction. There is chronic encephalomalacia of the anterior inferior left frontal lobe. No hydrocephalus. No midline shift, extra-axial fluid collection, or mass effect. The previously identified scalp abscess overlying the frontal bone is no longer visualized. There are postsurgical changes to the frontal bone, unchanged from prior study. The frontal bone demonstrates diffuse sclerosis and thickening. There is continued complete opacification of the frontal sinuses. There are several small foci of air within the left frontal sinus. There is near complete opacification of the left anterior ethmoid air cells and partial opacification of the remaining ethmoid air cells. There are chronic fracture deformities of the left orbit. CT cervical spine: There is kyphotic deformity of the mid cervical spine centered at C5-C6. Minimal anterolisthesis of C3 in relation to C4. Minimal anterolisthesis of C4 in relation to C5. Vertebral body heights are maintained. There is narrowing of the C5-C6 intervertebral disc space. There are anterior osteophytes at C5, C6 and C7. Prevertebral soft tissue is normal in appearance. C1-C2 relationship is anatomic. The dens is intact. No acute cervical spine fracture is identified. Lung apices are clear. IMPRESSION: 1. No acute intracranial abnormality. 2. Chronic encephalomalacia of the anterior inferior left frontal lobe. 3. The previously identified scalp abscess overlying the frontal bone is no longer visualized. There are postsurgical changes to the frontal bone, unchanged from prior study. The frontal bone demonstrates diffuse sclerosis and thickening. There is continued complete opacification of the frontal sinuses. There are several small foci of air within the left frontal sinus. There is near complete opacification of the left anterior ethmoid air cells and partial opacification of the remaining ethmoid air cells. There are chronic fracture deformities of the left orbit. 4. No acute osseous cervical spine abnormality. 5. There is kyphotic deformity of the mid cervical spine centered at C5-C6. DICTATED BY: Rad Garland MD DATE/TIME DICTATED:08/02/171950 MANAGER NIGHT:[place] DATE/TIME TRANSCRIBED:08/02/171950 CONFIDENTIAL, DO NOT COPY WITHOUT APPROPRIATE AUTHORIZATION. <Electronically signed in Other Vendor System> SIGNED BY: Rad Garland MD 08/02/172009 Initial ED EKG: normal sinus rhythm, no ST T wave changes (Gianni Connell) Plan of Care: Orders Procedure Date/time Status CIWA 08/03 1903 Active EKG 08/03 1903 Active Laboratory Tests 08/02/171907: Valproic Acid Cancelled 08/02/171903: Serum Alcohol Cancelled 08/02/171903: CBC w Diff Cancelled, WBC Cancelled, RBC Cancelled, Hgb Cancelled, Hct Cancelled , MCV Cancelled, MCH Cancelled, MCHC Cancelled, RDW Cancelled, Plt Count Cancelled, MPV Cancelled, Methadone Screen Cancelled, Barbiturate Screen Cancelled, Ur Phencyclidine Scrn Cancelled, Amphetamines Screen Cancelled, U Benzodiazepines Scrn Cancelled, Urine Cocaine Screen Cancelled, Urine Cannabis Screen Cancelled, Urine Color Cancelled, Urine Clarity Cancelled, Urine pH Cancelled, Ur Specific [place] Cancelled, Urine Protein Cancelled, Urine Ketones Cancelled, Urine Nitrite Cancelled, Urine Bilirubin Cancelled, Urine Urobilinogen Cancelled, Ur Leukocyte Esterase Cancelled, Ur Microscopic Cancelled, Urine Hemoglobin Cancelled, Urine Glucose Cancelled Patient seen and evaluated. He reports to have had a seizure on Sunday night. He does have a healing tongue laceration. Patient has a history of both alcohol withdrawal seizures and seizures related to a TBI. He takes Depakote. He has not drank since. Currently he appears clinically sober. We'll check basic labs and CT scan of the head and neck to assess for trauma. Also EKG. Patient medicated with Tylenol. Also check a CIWA Patient's initial CIWA score is 0. His labs are stable. CT scans are negative. Patient became aggravated when we were attempting to draw his blood. He made multiple inappropriate comments to the nurses and then stated that he was going to leave. Advised patient that he should stay for further evaluation including the blood work. He declines this. He is alert and oriented times threes clinically sober he is capable making this decision. He was instructed to follow-up with his primary care doctor. Patient refused to sign AMA form. (Gianni Connell) (Aleksey Gomez MD) Departure Departure Disposition: LEFT AGAINST MEDICAL ADVICE Condition: Stable Clinical Impression Primary Impression: Seizure Referrals: Fidelia GONSALEZ,Marycarmen Osborne (PCP/Family) Departure Forms: Customer Survey General Discharge Information (Gianni Connell) Departure Comments 08/02/17, 20:22.... pt repeatedly used expletives in reference to the nurses, calling them "bitches." He insists upon leaving prior to blood work being drawn. He wishes to leave against medical advice. CT scans are benign. He is awake and alert, articulates that he is tired of waiting, expresses understanding that he wishes to leave without the work-up being competed. I asked him to sign the AMA form. He states, "That form won't make any difference... I want to leave." Pt ambulated out of the emergency room without problem. PA/FACILITY EXAMINER Co-Sign Statement Statement: ED Attending supervision documentation- [x] I saw and evaluated the patient. I have also reviewed all the pertinent lab results and diagnostic results. I agree with the findings and the plan of care as documented in the PA's/FACILITY EXAMINER's documentation. (see above) [] I have reviewed the ED Record and agree with the PA's/FACILITY EXAMINER's documentation. [] Additions or exceptions (if any) to the PAs/FACILITY EXAMINER's note and plan are summarized below: [] (Patricia GONSALEZ,Aleksey Olson) Critical Care Note Critical Care Note Critical Care Time: non-applicable (Gianni Connell) ED Attending Observation Initial Observation Note: I have seen and personally examined KATY REDMOND on 08/05/17 at 1047. I agree with the current emergency department documentation. The disposition (admission or discharge) is uncertain at this time, he needs a period of observation for the following reason(s): The ED Nurse caring for this patient has been personally informed as to what the patient is being observed for. (Gianni Connell)
--- NOTE | 2017-08-02 20:10 | CT SCAN REPORT ---
EXAMINATION: CT HEAD CT CERVICAL SPINE CLINICAL INFORMATION: Trauma. Seizure. COMPARISON: CT head dated 11/26/[address] facial bones/sinuses dated 05/19/2017 was reviewed. TECHNIQUE: Noncontrast CT of the head was performed. Noncontrast CT of the cervical spine was performed. FINDINGS: CT head: No intracranial hemorrhage. No evidence of acute/subacute cerebral or cerebellar infarction. There is chronic encephalomalacia of the anterior inferior left frontal lobe. No hydrocephalus. No midline shift, extra-axial fluid collection, or mass effect. The previously identified scalp abscess overlying the frontal bone is no longer visualized. There are postsurgical changes to the frontal bone, unchanged from prior study. The frontal bone demonstrates diffuse sclerosis and thickening. There is continued complete opacification of the frontal sinuses. There are several small foci of air within the left frontal sinus. There is near complete opacification of the left anterior ethmoid air cells and partial opacification of the remaining ethmoid air cells. There are chronic fracture deformities of the left orbit. CT cervical spine: There is kyphotic deformity of the mid cervical spine centered at C5-C6. Minimal anterolisthesis of C3 in relation to C4. Minimal anterolisthesis of C4 in relation to C5. Vertebral body heights are maintained. There is narrowing of the C5-C6 intervertebral disc space. There are anterior osteophytes at C5, C6 and C7. Prevertebral soft tissue is normal in appearance. C1-C2 relationship is anatomic. The dens is intact. No acute cervical spine fracture is identified. Lung apices are clear. IMPRESSION: 1. No acute intracranial abnormality. 2. Chronic encephalomalacia of the anterior inferior left frontal lobe. 3. The previously identified scalp abscess overlying the frontal bone is no longer visualized. There are postsurgical changes to the frontal bone, unchanged from prior study. The frontal bone demonstrates diffuse sclerosis and thickening. There is continued complete opacification of the frontal sinuses. There are several small foci of air within the left frontal sinus. There is near complete opacification of the left anterior ethmoid air cells and partial opacification of the remaining ethmoid air cells. There are chronic fracture deformities of the left orbit. 4. No acute osseous cervical spine abnormality. 5. There is kyphotic deformity of the mid cervical spine centered at C5-C6.
== END 2017-08-02 20:32 ==
LOC: ERH 13:30
DX: R56.9 Unspecified convulsions (principal)
CPT/HCPCS: 80307; 93005; 93010; G0480

== ENCOUNTER 2017-09-30 22:25 | Inpatient (IN) | payer OTHER ==
[~2017-09-30] VITALS: Ht 172.7 cm; Wt 104.0 kg
[~2017-09-30 22:25] MED LIST changes: +MELOXICAM15 M1 PO; +NORCO 5-325 TA1 EACH PO
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
[2017-09-30 23:15] LABS: ABSOLUTE BASOPHIL COUNT 0 /CUMM (0.0-0.2); ABSOLUTE EOSINOPHIL COUNT 0.1 /CUMM (0.0-0.7); ABSOLUTE GRANULOCYTE CT 3.3 /CUMM (1.4-6.5); ABSOLUTE LYMPH COUNT 1.3 /CUMM (1.2-3.4); ABSOLUTE MONOCYTE COUNT 1.1 /CUMM (0.10-0.60); BASOPHIL % 0.3 % (0.0-2.0); EOSINOPHIL % 1.6 % (0-5); HEMATOCRIT 36.4 % (42-52); MEAN CORPUSCULAR HGB 34.8 PG (27.0-31.0); MEAN CORPUSCULAR HGB CONC 35.3 G/DL (33.0-37.0); MEAN CORPUSCULAR VOLUME 98.7 FL (80.0-94.0); MEAN PLATELET VOLUME 8.3 FL (7.4-10.4); PLATELET COUNT 98 /CUMM (130-400); RBC DISTRIBUTION WIDTH 14.9 % (11.5-14.5); RED BLOOD CELL CT 3.69 /CUMM (4.70-6.10); WHITE BLOOD CELL COUNT 5.8 /CUMM (4.8-10.8)
[2017-09-30 23:20] LABS: GRANULOCYTE % 56.2 % (42.2-75.2)
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
[2017-10-01 15:18] VITALS: BP 166/89
[2017-10-01 17:20] VITALS: BP 108/62
[2017-10-01 19:47] VITALS: BP 120/84
[2017-10-01 20:45] VITALS: BP 128/84
[2017-10-01 21:33] VITALS: BP 128/84
[2017-10-02] VITALS (9 sets, daily range): BP systolic 107–150; BP diastolic 54–95
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
--- NOTE | 2017-10-02 19:25 | SOCIAL WORKER PROG NOTE PSYCH ---
Social Work Progress Note Progress Note Pt asleep in room B1, he has a sitter. Attempted to wake up, but he was very sleepy, pt was experiencing psychosis prior to admission and was better off resting.
[2017-10-03 05:55] VITALS: BP 144/89
[2017-10-03 07:46] VITALS: BP 139/74
[2017-10-03 07:54] VITALS: BP 139/74
--- NOTE | 2017-10-03 10:35 | CP SOUTH PROGRESS NOTE PSYCH ---
Psych (Inpt) Progress Note Progress Note Laboratory Tests 10/03 Hemoglobin A1c (4.2 - 5.8 %) 5.6 Triglycerides (<150 mg/dL) 115 Cholesterol (< 200 MG/DL) 170 LDL Cholesterol, Calc (65 - 129 mg/dL) 94 HDL Cholesterol (40 - 60 mg/dL) 53 Cholesterol/HDL Ratio (0.00 - 4.88 %) 3 Vital Signs Date Time Temp Pulse Resp B/P 10/03 0754 84 139/74 10/03 0752 97.5 84 18 139/74 10/03 0752 97.5 84 18 139/74 10/03 0746 97.5 84 139/74 10/03 0555 96.9 78 144/89 10/02 2238 68 126/81 10/02 2204 97.7 87 18 140/80 Mental Status Examination: Patient was steady on his feet, has a face rash, he has a hole in the middle of his forehead due to chronic abcess that was drained He was calm and marginally cooperative. He showed reduced psychomotor activity and delayed responses, no agitation, no abnormal behaviors, reduced speech with some delay in responding to questions, constricted affect, depressed mood. The patient still feels that at home people may be still after him and that his life may be still in danger but he denied feeling that his life is in danger while he is on the inpatient unit. He denied wishing or denied thinking of suicide today. Denied thinking of violence or homicide today he denied auditory and visual hallucinations, but he reported tinnitus and he said that small more in the right ear than in the left but he is not in both years. He reported that he feels like a high pitched "chime". There are still some paranoid delusions but no rastafarian delusions today. He was still struggling with thought organization with occasional thought block. He was alert and oriented to time, place and person, showed better attention and concentration and information processing today. He did very well on the short-term memory testing as well as spelling backwards and subtractions and comprehension. Assessment: A 56-year-old white male who presented because of what seemed to be extreme paranoia. 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 The patient has presented in the past mostly with alcohol-related complaints but recently (he reports since Thursday, September 28, 2017) he seemed to have had significant change in mental status with florid psychotic symptoms. 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 and seizure disorder, frontal lobe encephalomalacia, s/p brain surgery in 1983 Treatment Plan Update: Continue Haldol 5 mg twice daily Continue Depakote 1000 mg twice daily Continue gabapentin 600 mg TID Continue Oxycodone 10 mg Q6 hours PRN severe pain Current Medications Hydroxide PO Amlodipine Besylate 10 MG DAILY 10/02 0900 AC 10/03 PO 0752 Cyclobenzaprine HCl 10 MG Q8P PRN 10/01 1515 AC 10/03 PO 0713 Divalproex Sodium 1,000 MG BID 10/02 0900 AC 10/03 PO 0751 Gabapentin 600 MG TID 10/01 1515 AC 10/03 PO 0752 Haloperidol 5 MG BID 10/02 1159 AC 10/03 PO 0751 PO 0928 Lorazepam 1 MG AT BEDTIME 10/03 2100 AC PO Lorazepam 2 MG Q6-PRN PRN 10/01 2130 AC 10/02 PO 0928 PO Metoprolol Tartrate 100 MG BID 10/01 2100 AC 10/03 PO 0752 Nicotine 14 MG DAILY 10/02 1211 AC 10/03 TOP 0750 Oxycodone HCl 10 MG Q6P PRN 10/01 1530 AC 10/01
--- NOTE | 2017-10-03 12:07 | SOCIAL WORKER PROG NOTE PSYCH ---
Social Work Progress Note Progress Note Dr. Gusman and I met with Fermin together this morning. Fermin has a puncture in his forehead that he reports is from draining that was done when he had a sinus infection. The puncture looks pretty deep. Fermin was calm and cooperative during the interview today. He apparently called 911 himself to come to the hospital because he hasn't been feeling right. Reports that he gets housing through [facility]. He has been living at his current residence for 18-19 months. Prior to that he was homeless. He said that someone at the [facility] helped connect him to [facility] for housing. He gets foodstamps and [employer] monthly. Denies other supports such as family or clinical supports. He did mention having a mental health case manager Quinn Romeo and someone named Cesar through [facility]. He Couldn' t recall if he has seen a psychiatrist in the past. He acknowledged having recent visual, auditory, and olfactory hallucinations. Reports that there are people that are trying to come into his apartment and kill him. He said he has seen these people before, but doesn't know who they are. He thinks that they were trying to poison him by squirting something under his door. Asked if he has felt this was since being on CPS? He said he thought they were squirting something under the door in the ER, but not since being on CPS. He denies hearing voices and only reports ringing or a chime in his ear. Primarily his right ear. He said he has experienced that for years though. He is a and was in the service ([employer]) from [id number]. He said he isn't eligible for [place] services. Dr. Gusman let him know that he is being prescribed Haldol to help with the paranioa. He seemed fine with that. He doesn't seem fearful of returning to his housing situation. He signed a release for me to reach out to his S and [facility]. He gets nursing services 1-2x's a week through [place]. Called Lane Romeo [phone] ext. [phone] at [facility] and left a message.
[2017-10-03 12:31] VITALS: BP 119/78
[2017-10-03 15:50] VITALS: BP 142/89
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
[2017-10-03 19:54] VITALS: BP 153/84
[2017-10-04 07:37] VITALS: BP 147/80
--- NOTE | 2017-10-04 08:39 | CP SOUTH PROGRESS NOTE PSYCH ---
Psych (Inpt) Progress Note Progress Note Treatment team (GLORIA, RN, OTR/L & Activities Therapist, Psychiatrist) discussed the Pt.'s progress, treatment plan, and aftercare plans. Vital Signs Date Time Temp Pulse B/P 10/04 0852 85 147/80 10/04 0852 85 147/80 10/04 0737 97.7 85 147/80 Mental Status Examination: Patient was alert, and oriented to time, place, and person. His facial rash is much improved. He was calm and marginally cooperative. He showed reduced psychomotor activity and delayed responses when asked questions. Pt. was in good behavioral control/no agitation. Pt. had constricted affect, depressed mood. The patient reported that feels safe on the unit but that he still feels that at home people may be still after him and that his life may be still in danger. He denied wishing , denied thinking of suicide, and denied thinking of violence or homicide. Pt. denied hallucinations, but he reported tinnitus and he said that small more in the right ear than in the left but he has it in both ears (like a high pitched "chime"). He was still struggling with some thought blocking but seems to be getting better each day. He showed better attention/concentration and information processing. Assessment: Fermin is a 56-year-old White male who presented because of what seemed to be extreme paranoia. 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 he reports since Thursday, September 28, 2017 he seemed to have had significant change in mental status with florid psychotic symptoms. He is in good behavioral control on the unit and showing gradual improvement Diagnoses: Unspecified Psychotic Disorder Rule out psychotic disorder due a combination medical conditions (possible infectious process, traumatic brain injury with frontal lobe encephalomalacia, and seizure disorder) Treatment Plan Update: D/C PRN Lorazepam Reduce bedtime Lorazepam to 0.5 mg Change Haldol to 7 mg at bedtime Continue Depakote 1000 mg twice daily Continue gabapentin 600 mg TID Continue Oxycodone 10 mg Q6 hours PRN severe pain Amlodipine Besylate 10 MG DAILY 10/02 0900 AC 10/03 Cyclobenzaprine HCl 10 MG Q8P PRN 10/01 1515 AC 0 Lorazepam 1 MG AT BEDTIME 10/03 2100 AC Metoprolol Tartrate 100 MG BID 10/01 2099 AC 10/03 Nicotine 14 MG DAILY 10/02 1210 AC 10/03 Lorazepam 1 MG AT BEDTIME 10/03 2099 AC Lorazepam 2 MG Q6-PRN PRN 10/01 2129 AC 10/02 Metoprolol Tartrate 100 MG BID 10/01 2099 AC 10/03 Nicotine 14 MG DAILY 10/02 1210 AC 10/03 Oxycodone HCl 10 MG Q6P PRN Haloperidol 5 MG BID 10/02 1158 AC 09/15 Lorazepam 1 MG AT BEDTIME 10/03 2099 AC Lorazepam 2 MG Q6-PRN PRN 10/01 2129 AC 10/02 Metoprolol Tartrate 100 MG BID 10/01 2099 AC 10/03 Nicotine 14 MG DAILY 10/02 1210 AC 10/03 Oxycodone HCl 10 MG Q6P PRN Lorazepam 1 MG AT BEDTIME 10/03 2099 AC PO Lorazepam 2 MG Q6-PRN PRN 10/01 2129 AC 10/02 Metoprolol Tartrate 100 MG BID 10/01 2099 AC 10/03 Nicotine 14 MG DAILY 10/02 1210 10/03 Oxycodone HCl 10 MG Q6P PRN
--- NOTE | 2017-10-04 09:14 | SOCIAL WORKER PROG NOTE PSYCH ---
Social Work Progress Note Progress Note Lane from [facility] returned my call today. I asked what his role was with Fermin? He said he was his manager division. I asked if there was any clinical services that had been explored? He said there hasn't been, because there wasn't really a need. I told him that I was going to refer him to [facility] for services. He would like to see Fermin today. I asked if he wanted me to be part of that meeting? He said that he and Fermin will meet alone as they have a good relationship. He plans to come to the unit around 12:45pm. Informed Fermin of this visit. Met with Fermin later after his meeting with Lane. I asked how the meeting went? He said Lane was asking him about going to rehab. I asked what his thoughts were? He said he didn't know if he really needed it and had done a good job at cutting back his alcohol use. He reported that he used to drink 8- 25oz beers a day and now he is drinking 1-2 beers. He denies having current problems related to his drinking, but said that in the past he has had trouble with housing. I commented that the issue he was here didn't seem related to drinking that I was aware of. He agreed. He then said he would consider referrals to rehab, but didn't know if he would actually want to go. He couldn' t recall the reasons that Lane thought he should go. Appears to have some memory impairment. Continues to hear the loud ringing in his right ear. He finds it very distracting. He talked about how his memory is bad from the seizure d/o/ TBI. Reports not seeing his neurologist for months and said "he is limiting his time with me." Continues to believe someone was trying to kill him at home and in the ER, but not here on [facility]. 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 He said no. When asked why? He said "I don't think he would believe me." Worked with Dayron Cui ([facility] senior internal auditor) on some rehab applications/ referrals.
[2017-10-04 12:06] VITALS: BP 146/74
--- NOTE | 2017-10-04 14:21 | SOCIAL WORKER PROG NOTE PSYCH ---
Social Work Progress Note Progress Note KATY REDMOND [id number] 1960 KATY REDMOND [id number] Pended Authorization # Client Authorization # Type of Request [id number] CONCURRENT Date of Admission/ Start of Services Requested From Submission Date 10/01/2017 10/04/2017 10/04/2017
[2017-10-04 16:26] VITALS: BP 144/92
[2017-10-04 20:23] VITALS: BP 172/102
[2017-10-04 22:00] VITALS: BP 168/110
[2017-10-04 23:27] VITALS: BP 140/78
[2017-10-05 07:40] VITALS: BP 152/90
--- NOTE | 2017-10-05 09:12 | SOCIAL WORKER PROG NOTE PSYCH ---
Social Work Progress Note Progress Note Spoke with Cesar from [facility]. He is Fermin's Behavioral Health composite layup worker. Gave him an update on Fermin. Told him that Fermin agreed to do a couple of rehab referrals, but didn't know if he would go. Cesar said that he believes his drinking to be a problem and is most likely under reporting. He said he will talk to Fermin around 10am and he will already be slurring his words. He reports Fermin to have some paranoia at baseline, but it becomes worse under the influence of alcohol. He said he had to cancel Fermin's neurology appt. on the due to him being under the influence. It was rescheduled for the , but then Fermin ended up here. He hasn't rescheduled again at this time.
--- NOTE | 2017-10-05 10:48 | SOCIAL WORKER PROG NOTE PSYCH ---
Social Work Progress Note Progress Note I Dayron Cui ([facility] general internist and physician leader) met with Fermin this morning to check in with him. He said he was doing fine but reported some anxiety and depression. He expressed interest in wanting to discharge soon which I said the team would discuss discharge of early next week. He reported feeling safe on the unit, no thoughts of anyone here trying to harm him. When I informed him that the referral for the rehabs to [facility] were sent he expressed having a different plan after discharge. When asked about his plan after discharge he stated that he would be interested in doing IOP. I reminded him that this is group therapy that meets three times a week. When asked if he expressed not wanting to go to rehab to his case manger Lane he responded saying no. I explored further to see why Fermin did not want to go to rehab he replied by saying that he would not fit in physically or socially. I acknowledge his feelings and asked if he thought the rehabs could potentially be helpful he said yes but the person who goes has to want to be there which he does not want. I proceeded to ask the patient if he felt that IOP would provide enough support and structure for him which he responded yes it would be. He was happy to share that his hands were not shaky today, I inquired if Fermin was utilizing any coping skills on the unit such as reading or writing which he said no but did say he enjoys reading novels. The patient said that he did not feel any side effects from the medications but made a comment that he is taking more medications than he was at home. I started the IOP referral for Care in which the client was compliant with sharing information about alcohol use. The above note was written by Dayron Cui ([facility] general internist and physician leader) and signed by Maite Gaytan LCSW
[2017-10-05 12:15] VITALS: BP 146/92
--- NOTE | 2017-10-05 13:43 | CP SOUTH PROGRESS NOTE PSYCH ---
Psych (Inpt) Progress Note Progress Note Treatment team (GLORIA, RN, OTR/L & Activities Therapist, Psychiatrist) discussed the Pt.'s progress, treatment plan, and aftercare plans. Mental Status Examination: Patient was alert and oriented to time, place, and person. He was calm and cooperative. He showed reduced psychomotor activity and constricted affect. Still having some delayed responses when asked questions. Pt. was in good behavioral control/no agitation. Pt. had depressed mood. The patient reported that feels safe on the unit but that he still feels that at home people may be still after him and that his life may be still in danger. He denied wishing , denied thinking of suicide, and denied thinking of violence or homicide. Pt. denied hallucinations, still struggling with some thought blocking showed better attention/concentration and information processing. Assessment: Fermin is a 56-year-old Single White male who was admitted on because of what seemed to be extreme paranoia. 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 he reports since Thursday, September 28, 2017 he seemed to have had significant change in mental status with florid psychotic symptoms. He is in good behavioral control on the unit and showing gradual improvement Diagnoses: Unspecified Psychotic Disorder Rule out psychotic disorder due a combination medical conditions (possible infectious process, traumatic brain injury with frontal lobe encephalomalacia, and seizure disorder) Treatment Plan Update: D/C Lorazepam to 0.5 mg Continue Haldol 7 mg at bedtime Continue Depakote 1000 mg twice daily Continue gabapentin 600 mg TID Continue Oxycodone 10 mg Q6 hours PRN severe pain Amlodipine Besylate 10 MG DAILY 10/02 0900 AC 10/03 Cyclobenzaprine HCl 10 MG Q8P PRN 10/01 1515 Metoprolol Tartrate 100 MG BID
[2017-10-05 15:52] VITALS: BP 149/99
[2017-10-05 19:54] VITALS: BP 147/90
[2017-10-06 07:39] VITALS: BP 143/98
--- NOTE | 2017-10-06 11:54 | MRI REPORT ---
MR BRAIN WITHOUT CONTRAST CLINICAL INFORMATION: History of severe TBI with recent seizure/change of mental status. COMPARISON: Head CT 08/02/2017. TECHNIQUE: MRI of the brain without contrast was obtained using routine sequences. FINDINGS: Chronic encephalomalacia, gliosis, and chronic hemosiderin staining within the left frontal lobe inferiorly and anteriorly as well as within the right occipital lobe that is most likely the sequela of old trauma given the clinical history. Findings are stable when compared to head CT studies dated back to 08/22/2016. There is diffuse thinning of the corpus callosum. Global cerebral volume loss and mild chronic microangiopathy. There is no hydrocephalus, extra-axial surface collection, or herniation. The major flow voids at the skull base are preserved. There is no acute infarct on diffusion-weighted imaging. There is no intracranial hemorrhage on the gradient recalled echo acquisition. The midline structures are normal. The cerebellar tonsils are normally positioned. The cerebellum and brainstem are normal. The craniocervical junction is normal. Chronic opacification of the frontal sinuses bilaterally which exhibits the sequela of old trauma. The left ethmoid air cells are chronically opacified. Near complete opacification of the right maxillary sinus. IMPRESSION: - No acute intracranial findings. - Chronic encephalomalacia, gliosis, and chronic hemosiderin staining within the left frontal lobe inferiorly and anteriorly as well as within the right occipital lobe that is most likely the sequela of old trauma given the clinical history. Findings are stable when compared to head CT studies dated back to 08/22/2016. - There is diffuse thinning of the corpus callosum. Global cerebral volume loss and mild chronic microangiopathy. - Diffuse sinus disease as described.
[2017-10-06 12:02] VITALS: BP 138/84
--- NOTE | 2017-10-06 12:18 | CP SOUTH PROGRESS NOTE PSYCH ---
Psych (Inpt) Progress Note Progress Note Treatment team (GLORIA, RN, OTR/L & Activities Therapist, Psychiatrist) discussed the Pt.'s progress, treatment plan, and aftercare plans. Vital Signs Date Time Temp Pulse B/P B/P Pulse O2 O2 Flow FiO2 10/06 1202 66 138/84 10/06 1025 Room Air 10/06 0804 69 143/98 10/06 0804 69 143/98 10/06 0739 97.8 69 143/98 10/05 2050 76 147/90 10/05 1954 98.5 76 147/90 Mental Status Examination: Patient seemed a little brighter in his affect today. He was alert and oriented to time, place, and person. He was calm and cooperative. He showed reduced psychomotor activity and constricted affect. His responses were a bit quicker today. He continues to be in good behavioral control/no agitation. Pt. had depressed mood. The patient reported that feels safe on the unit but that he still feels that at home people may be still after him and that his life may be still in danger. He denied wishing , denied thinking of suicide, and denied thinking of violence or homicide. Pt. denied hallucinations, did not seem to be responding to internal stimuli, showed better attention/concentration and information processing. Assessment: Fermin Wylie is a 56-year-old Single White Male who was admitted on because of what seemed to be extreme paranoia. 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 he reports since Thursday, September 28, 2017 he seemed to have had significant change in mental status with florid psychotic symptoms. He is in good behavioral control on the unit and showing gradual improvement Diagnoses: Unspecified Psychotic Disorder Rule out psychotic disorder due a combination medical conditions (possible infectious process, traumatic brain injury with frontal lobe encephalomalacia, and seizure disorder) Treatment Plan Update: Change gabapentin to 400 mg AM and early afternoon and 800 mg at bedtime Reduce Oxycodone to 5 mg Q6 hours PRN severe pain Continue Haldol 7 mg at bedtime Continue Depakote 1000 mg twice daily Cyclobenzaprine HCl 10 MG Q8P PRN Metoprolol Tartrate 100 MG BID Sig/Festus Start time Last Medication Dose Route Stop Time Status Admin Acetaminophen 650 MG Q4P PRN 10/01 1515 AC PO Al Hydroxide/Mg 30 ML Q4-6 PRN PRN 10/01 1515 AC Hydroxide PO Amlodipine Besylate 10 MG DAILY 10/02 0900 AC 10/06 PO 0804 Cyclobenzaprine HCl 10 MG Q8P PRN 10/01 1515 AC 10/03 PO 0713 PO 0804 Gabapentin 800 MG AT BEDTIME 10/06 2100 AC PO Gabapentin 400 MG 0800 & 1300 10/06 1300 AC 10/06 PO 1330 Gabapentin 400 MG TID 10/04 1400 DC 10/06 PO 0804 Glycerin/Mineral Oil 1 KARI BID 10/03 1244 AC 10/05 EXT 205 Haloperidol 7 MG AT BEDTIME 10/04 2100 AC 10/05 PO 205 Hydrocortisone 1 KARI DAILY 10/03 1244 AC 10/05 EXT 0859 Lorazepam 0.5 MG AT BEDTIME 10/04 2100 AC 10/05 PO 10/10 2058 2050 Magnesium Hydroxide 30 ML AT BEDTIME PRN 10/01 1515 AC PO Metoprolol Tartrate 100 MG BID 10/01 2100 AC 10/06 PO 0804 Nicotine 14 MG DAILY 10/02 1211 AC 10/06 TOP 0804 Oxycodone HCl 5 MG Q6P PRN 10/06 0930 AC 10/06 PO 1208 Oxycodone HCl 10 MG Q6P PRN 10/01 1530 DC 10/01 PO 2208
[2017-10-06 15:49] VITALS: BP 144/94
[2017-10-06 19:53] VITALS: BP 133/77
[2017-10-07 07:50] VITALS: BP 144/98
[2017-10-07 12:05] VITALS: BP 137/78
--- NOTE | 2017-10-07 12:24 | CP SOUTH PROGRESS NOTE PSYCH ---
Psych (Inpt) Progress Note Progress Note Mental Status Examination: Patient was alert and oriented to time, place, and person. He was calm and cooperative. He showed reduced psychomotor activity and constricted affect. His responses were a bit quicker. He continues to be in good behavioral control/no agitation. The patient reported that feels safe on the unit but that he still feels that at home people may be still after him and that his life may be still in danger. He agrees that he is somewhat depressed, however, he denied feeling hopeless or worthless, denied wishing , denied thinking of suicide, and denied thinking of violence or homicide. Pt. denied hallucinations, did not seem to be responding to internal stimuli, showed better attention/concentration and information processing. Assessment: Fermin Wylie is a 56-year-old Single White Male who was admitted to the inpatient psychiatric unit at [facility] because of what seemed to be extreme paranoia. 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 he reports since Thursday, September 28, 2017 he seemed to have had significant change in mental status with florid psychotic symptoms. He is in good behavioral control on the unit and showing gradual improvement Diagnoses: Unspecified Psychotic Disorder (Rule out psychotic disorder due a combination medical conditions (possible infectious process, traumatic brain injury with frontal lobe encephalomalacia, and seizure disorder) Treatment Plan Update: Increase Metoprolol Tartrate to 125 mg BID gabapentin 400 mg AM and early afternoon and 800 mg at bedtime Oxycodone 5 mg Q6 hours PRN severe pain Continue Haldol 7 mg at bedtime Continue Depakote 1000 mg twice daily Cyclobenzaprine HCl 10 MG Q8P PRN Acetaminophen 650 MG Q4P PRN 10/01 1515 AC Amlodipine Besylate 10 MG DAILY 10/02 0900 AC 804 Cyclobenzaprine HCl 10 MG Q8P PRN 10/01 1515 AC 10/03 Glycerin/Mineral Oil 1 KARI BID 10/03 1244 AC 10/05 Hydrocortisone 1 KARI DAILY 10/03 1244 AC 10/05 0859 Lorazepam 0.5 MG AT BEDTIME 10/04 2100 AC 10/05 Magnesium Hydroxide 30 ML AT BEDTIME PRN 10/01 1515 AC Nicotine 14 MG DAILY 10/02 1211 10/06 TOP 0804 Oxycodone HCl 5 MG Q6P PRN 10/06 0930 10/06 DICTATED
[2017-10-07 19:37] VITALS: BP 148/96
[2017-10-07 21:23] LABS: HEMATOCRIT 35.9 % (42-52); MEAN CORPUSCULAR HGB 34.3 PG (27.0-31.0); MEAN CORPUSCULAR VOLUME 101.1 FL (80.0-94.0); MEAN PLATELET VOLUME 7.1 FL (7.4-10.4); PLATELET COUNT 373 /CUMM (130-400); RBC DISTRIBUTION WIDTH 13.9 % (11.5-14.5); RED BLOOD CELL CT 3.55 /CUMM (4.70-6.10); WHITE BLOOD CELL COUNT 6.1 /CUMM (4.8-10.8)
--- NOTE | 2017-10-08 00:25 | CT SCAN REPORT ---
EXAMINATION: CT SINUS WITH IV CONTRAST CLINICAL INFORMATION: Sinusitis. Suspected osteomyelitis of frontal bone. Swelling and pus discharge. COMPARISON: August 17, 2017. October 06, 2017. TECHNIQUE: Contiguous helical images of the facial bones and paranasal sinuses were obtained following the administration of IV contrast. Multiplanar reconstructions were performed. 94 cc of Optiray 320 were administered without incident. DLP: 325 mGy-cm FINDINGS: FRONTAL SINUSES AND DRAINAGE PATHWAYS: There is again noted to be complete opacification to the frontal sinuses with rarefaction to the overlying bone along with a defect extending from the overlying soft tissues through to the left side of the frontal sinus. Hyperostosis to the outer table is again identified. This is best demonstrated on series 4 image 176/249. This is similar to prior exam. MAXILLARY SINUSES AND DRAINAGE PATHWAYS: The patient is status post bilateral medial antrostomies. There is marked mucosal thickening to the right maxillary sinus, increased from prior CT of August 17, 2017. There is mild thickening to the left maxillary sinus posterior, improved from prior exam. ETHMOID SINUSES: The patient is likely status post partial left ethmoidectomy. There is again noted to be a defect to the left medial orbital wall with extensive opacification to the left ethmoid sinus, similar to prior exam. There is no fat stranding lateral to the left medial orbital wall. There is no displacement to the left medial rectus muscle. SPHENOID SINUSES AND DRAINAGE PATHWAYS: Normal. The sphenoid ostia are patent. The carotid canals are covered by bone. NASAL CAVITY/NASOPHARYNX: The nasal cavity is clear. There is no nasal septal deviation/spurring. The nasopharynx is symmetric. ADDITIONAL RELEVANT FINDINGS: No periapical disease is seen. The TMJs articulate normally. As well, there is a stable cortical defect to the left medial orbital wall; otherwise, the orbits and skull base soft tissues are unremarkable. The middle ear cavities and mastoid air cells are clear. Limited evaluation demonstrates no acute intracranial findings. There is no abnormal enhancement. Again identified is prominence to the lateral ventricles concordant with the appearance of the sulci. There is stable encephalomalacia within the left frontal lobe. There are no pathologic extra-axial fluid collections. IMPRESSION: Persistent defect to the left side of the left frontal bone connecting the overlying soft tissue with the left frontal sinus. There is persistent complete opacification to the left frontal sinus with stable table hyperostosis and surgical cerclage wires. Correlate with physical exam as this could correspond to the site of reported drainage. There is persistent left ethmoid opacification. There is bilateral maxillary sinus opacification, right greater than left. Stable left frontal lobe encephalomalacia.
--- NOTE | 2017-10-08 04:32 | Event Note ---
Event Note Event Note: I was called for pus discharge from his forehead wound. I went to see him. 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 He was admitted for similar complains in May, improved with IV abx. He did not follow up with ENT after discharge. He again had recurrence in Aug, 2017 and was treated with Augmentin for 10 days. When he was admitted on October 01, he had scab on forehead. Patient states that he may have picked on the scab. Today patient and the nurse notice the pus discharge. S/s positive for sinuitis. NO fever but patient has been feeling chills. On exam: Abscess on for head left side, draining pus. Tenderness to maxillary sinus, frontal sinus, no nasal congestion, no neck stiffness, eye movements intact. Obtained labs for Creatinine and WBC. Laboratory Tests 10/07 2053 Chemistry Sodium (137 - 145 mmol/L) 140 Potassium (3.5 - 5.1 mmol/L) 4.3 Chloride (98 - 107 mmol/L) 98 Carbon Dioxide (22 - 30 mmol/L) 30 Anion Gap (5 - 16) 11 BUN (9 - 20 mg/dL) 17 Creatinine (0.7 - 1.2 mg/dL) 1.0 Estimated GFR (>60 ml/min) > 60 BUN/Creatinine Ratio (7 - 25 %) 17.0 Hematology CBC w Diff MAN DIFF ORDERED WBC (4.8 - 10.8 /CUMM) 6.1 RBC (4.70 - 6.10 /CUMM) 3.55 L Hgb (14.0 - 18.0 G/DL) 12.2 L Hct (42 - 52 %) 35.9 L MCV (80.0 - 94.0 FL) 101.1 H MCH (27.0 - 31.0 PG) 34.3 H MCHC (33.0 - 37.0 G/DL) 34.0 RDW (11.5 - 14.5 %) 13.9 Plt Count (130 - 400 /CUMM) 373 MPV (7.4 - 10.4 FL) 7.1 L Segmented Neutrophils (42.2 - 75.2 %) 29 L Band Neutrophils (0.0 - 5.0 %) 1 Lymphocytes (20.5 - 51.1 %) 50 Monocytes (1.7 - 9.3 %) 16 H Eosinophils (0 - 5.0 %) 2 Basophils (0.0 - 2.0 %) 2 Platelet Estimate (ADEQUATE) ADEQUATE Normocytic RBCs VERIFIED Normochromic RBCs VERIFIED Ct sinus was obtained to rule out deeper extensions. Impression : Persistent defect to the left side of the left frontal bone connecting the overlying soft tissue with the left frontal sinus. There is persistent complete opacification to the left frontal sinus with stable table hyperostosis and surgical cerclage wires. Correlate with physical exam as this could correspond to the site of reported drainage. There is persistent left ethmoid opacification. There is bilateral maxillary sinus opacification, right greater than left. Stable left frontal lobe encephalomalacia. - continue oral keflex and bactrim - patient will need ENT follow up.
[2017-10-08 08:12] VITALS: BP 129/87
--- NOTE | 2017-10-08 11:00 | SOCIAL WORKER PROG NOTE PSYCH ---
Social Work Progress Note Progress Note Sent a referral for Fermin to [facility] for IOP services. Spoke with Hiwot in Intake at [facility]. She gave Fermin an intake for 10/10 at 12:30pm. He will see Garo Diaz during that appt. She reports that he should be seen for [facility] within a couple of weeks if he is going to [facility]. Fermin was sitting in the lounge as I approached him. I asked if we could meet? He repsonded in an irritated manner "what for?" I told him I just wanted to check in with him, as I hadn't see him since the weekend. He looked upset and another peer sitting by, said he was upset. I asked what was upsetting him? He said "I can't get a fucking razor." He said nursing want allow it today. He then asked to meet with the psychiatrist and I together so we can discuss a plan. Fermin, Dr. Gusman, and I talked this afternoon. Fermin's mood was less irritable. Dr. Gusman reviewed the neuroimaging report. Fermin was informed that there was no indication from the report that anything had reached his bone or brain at this point. He was told that he will have to follow up with an ENT specialist, neurology, and his primary care doctor. We talked about his housing situation and thoughts about what was going on there. He said today "I don't know if it was real or imagined." He continues to say that he recognized some of the people that were after him. States there were 6 people in total. Believes that a couple of them live in his building. He says he will "defend himself" if need be. He would go after someone with a baseball bat if he felt his life was in danger. 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 I told him that he will lose his housing if he ends up in [facility]. He was encouraged to get himself to the ER if he felt endangered in any way. He seemed open to returning to the hospital. Admitted that he was also seeing "satan" in his apartment and that he was seeing this image for about a week prior to admission. Reports he was having conversations with this hallucination. Denies heavily drinking, stating he has cut down significantly. Discussed discharge for tomorrow most likely. Reviewed his appt. with [facility] for 10/10. Reports he can walk to [facility] easily from where he lives. Called Cesar at [facility] and left an update on Fermin and plan for d/c tomorrow. Spoke with Cesar and reviewed d/c information. 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 Fermin was relayed this information. He requested Guerrero to walk into his apartment with him to ensure it is safe. I left Csear a message with this request. Talked to Fermin's nurse. Zuleika from [place]. Informed her of the d/c plan and reviewed current med list. She requested meds be called into [facility] and that Cesar and Fermin pick them up on his way home. She is also wondering if Haldol can be switched from evening to am, since he is more compliant with his morning meds.
[2017-10-08 12:06] VITALS: BP 120/74
[2017-10-08 15:36] VITALS: BP 121/67
--- NOTE | 2017-10-08 16:04 | PN- Att Addend ---
Attending Addendum Attending Brief Note S: The patient does have small amount of drainage from forehead wound. Says this is similar to prior episodes. O: VS: Vital Signs Date Time Temp Pulse Resp B/P B/P Pulse O2 O2 Flow FiO2 Mean Ox Delivery Rate 10/08 1536 92 121/67 10/08 1206 62 120/74 10/08 0834 97.1 72 18 129/87 10/08 0833 97.1 72 18 129/87 10/08 0812 97.1 72 129/87 10/07 2346 Room Air 10/07 2122 98.3 80 18 148/96 10/07 1937 98.3 80 148/96 Intake & Output 10/08 1600 10/08 0800 10/08 0000 Intake Total Output Total Balance Patient 229 lb Weight Current Medications Sig/Festus Start time Last Medication Dose Route Stop Time Status Admin Acetaminophen 650 MG Q4P PRN 10/01 1515 AC PO Al Hydroxide/Mg 30 ML Q4-6 PRN PRN 10/01 1515 AC Hydroxide PO Amlodipine Besylate 10 MG DAILY 10/02 09 AC 10/08 PO 0833 Cephalexin 500 MG Q6 10/07 2359 AC 10/08 PO 1202 Cyclobenzaprine HCl 10 MG Q8P PRN 10/01 1515 AC 10/07 PO 1521 Divalproex Sodium 1,000 MG BID 10/02 0900 AC 10/08 PO 0833 Gabapentin 1,200 MG AT BEDTIME 10/07 2100 AC 10/07 PO 2124 Gabapentin 400 MG 0800 & 1300 10/06 1300 AC 10/08 PO 1202 Glycerin/Mineral Oil 1 KARI BID 10/03 1244 AC 10/07 EXT 0841 Haloperidol 7 MG AT BEDTIME 10/04 2100 AC 10/07 PO 2123 Hydrocortisone 1 KARI DAILY 10/03 1244 AC 10/08 EXT 0836 Lorazepam 0.5 MG AT BEDTIME 10/04 2100 AC 10/07 PO 10/10 Magnesium Hydroxide 30 ML AT BEDTIME PRN 10/01 1515 AC PO Metoprolol Tartrate 125 MG BID 10/07 2100 AC 10/08 PO 0834 Nicotine 14 MG DAILY 10/02 1211 AC 10/08 TOP 0832 Oxycodone HCl 5 MG Q6P PRN 10/06 0930 AC 10/07 PO 1521 Trimethoprim/ 1 TAB BID 10/07 2359 AC 10/08 Sulfamethoxazole PO 0833 Physical Exam: Forehead- + small wound with small amount of drainage (serous) from frontal region. Laboratory Tests 10/07/172053: Anion Gap 11, Estimated GFR > 60, BUN/Creatinine Ratio 17.0, CBC w Diff MAN DIFF ORDERED, RBC 3.55 L, MCV 101.1 H, MCH 34.3 H, MCHC 34.0, RDW 13.9, MPV 7.1 L , Segmented Neutrophils 29 L, Band Neutrophils 1, Lymphocytes 50, Monocytes 16 H, Eosinophils 2, Basophils 2, Platelet Estimate ADEQUATE, Normocytic RBCs VERIFIED, Normochromic RBCs VERIFIED CT Head/Sinus: 09/28/17 IMPRESSION: Persistent defect to the left side of the left frontal bone connecting the overlying soft tissue with the left frontal sinus. There is persistent complete opacification to the left frontal sinus with stable table hyperostosis and surgical cerclage wires. Correlate with physical exam as this could correspond to the site of reported drainage. There is persistent left ethmoid opacification. There is bilateral maxillary sinus opacification, right greater than left. Stable left frontal lobe encephalomalacia. 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 Spoke with ID (Dr. Garza) regarding this and he suggests OP follow-up with ENT. Plan: Continue Keflex/Bactrim at present and follow-up with PCP (Dr. Mistry) and ENT as OP. Dr. Mistry has discussed with Dr. Garza previously.
--- NOTE | 2017-10-08 16:07 | CP SOUTH PROGRESS NOTE PSYCH ---
Psych (Inpt) Progress Note Progress Note Laboratory Tests 10/07 2053 Chemistry Sodium (137 - 145 mmol/L) 140 Potassium (3.5 - 5.1 mmol/L) 4.3 Chloride (98 - 107 mmol/L) 98 Carbon Dioxide (22 - 30 mmol/L) 30 Anion Gap (5 - 16) 11 BUN (9 - 20 mg/dL) 17 Creatinine (0.7 - 1.2 mg/dL) 1.0 Estimated GFR (>60 ml/min) > 60 BUN/Creatinine Ratio (7 - 25 %) 17.0 Hematology CBC w Diff MAN DIFF ORDERED WBC (4.8 - 10.8 /CUMM) 6.1 RBC (4.70 - 6.10 /CUMM) 3.55 L Hgb (14.0 - 18.0 G/DL) 12.2 L Hct (42 - 52 %) 35.9 L MCV (80.0 - 94.0 FL) 101.1 H MCH (27.0 - 31.0 PG) 34.3 H MCHC (33.0 - 37.0 G/DL) 34.0 RDW (11.5 - 14.5 %) 13.9 Plt Count (130 - 400 /CUMM) 373 MPV (7.4 - 10.4 FL) 7.1 L Segmented Neutrophils (42.2 - 75.2 %) 29 L Band Neutrophils (0.0 - 5.0 %) 1 Lymphocytes (20.5 - 51.1 %) 50 Monocytes (1.7 - 9.3 %) 16 H Eosinophils (0 - 5.0 %) 2 Basophils (0.0 - 2.0 %) 2 Platelet Estimate (ADEQUATE) ADEQUATE Normocytic RBCs VERIFIED Normochromic RBCs VERIFIED Vital Signs Date Time Temp Pulse Resp B/P B/P Pulse O2 O2 Flow FiO2 Mean Ox Delivery Rate 10/08 1536 92 121/67 10/08 1206 62 120/74 10/08 0834 97.1 72 18 129/87 10/08 0833 97.1 72 18 129/87 10/08 0812 97.1 72 129/10/07 2346 Room Air 10/07 2122 98.3 80 18 148/96 10/07 1937 98.3 80 148/96 Mental Status Examination: Patient was alert and oriented to time, place, and person. He was calm and cooperative. He showed reduced psychomotor activity and constricted affect. His responses were a bit quicker. He continues to be in good behavioral control/no agitation. The patient reported that feels safe on the unit but that he still feels that at home people may be still after him and that his life may be still in danger. He agrees that he is somewhat depressed, however, he denied feeling hopeless or worthless, denied wishing , denied thinking of suicide, and denied thinking of violence or homicide. Pt. denied hallucinations, did not seem to be responding to internal stimuli, showed better attention/concentration and information processing. Assessment: Fermin Wylie is a 56-year-old Single White Male who was admitted to the inpatient psychiatric unit at [facility] because of what seemed to be extreme paranoia. 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 he reports since Thursday, September 28, 2017 he seemed to have had significant change in mental status with florid psychotic symptoms. He is in good behavioral control on the unit and showing gradual improvement Diagnoses: Unspecified Psychotic Disorder (Rule out psychotic disorder due a combination medical conditions (possible infectious process, traumatic brain injury with frontal lobe encephalomalacia, and seizure disorder) Treatment Plan Update: Continue Metoprolol Tartrate to 125 mg BID gabapentin 400 mg AM and early afternoon and 800 mg at bedtime Oxycodone 5 mg Q6 hours PRN severe pain Continue Haldol 7 mg at bedtime Continue Depakote 1000 mg twice daily Cyclobenzaprine HCl 10 MG Q8P PRN Acetaminophen 650 MG Q4P PRN Amlodipine Besylate 10 MG DAILY Cyclobenzaprine HCl 10 MG Q8P PRN Glycerin/Mineral Oil 1 KARI BID Hydrocortisone 1 KARI DAILY Lorazepam 0.5 MG AT BEDTIME Magnesium Hydroxide 30 ML AT BEDTIME PRN Nicotine 14 MG DAILY Oxycodone HCl 5 MG Q6P PRN
[2017-10-08 16:18] VITALS: BP 135/74
--- NOTE | 2017-10-08 17:14 | SOCIAL WORKER PROG NOTE PSYCH ---
Social Work Progress Note Progress Note PENDED The services requested require additional review. You will be contacted regarding the status of this request if further information is needed. An authorization decision will be made within the required timeframes and details of that decision may be found under the member's authorization history. Member Name Member ID Member Subscriber Name Subscriber ID KATY REDMOND [id number] KATY REDMOND [id number] Pended Authorization # Client Authorization # Type of Request [id number] CONCURRENT Date of Admission/ Start of Services Requested From Submission Date 10/01/2017 10/08/2017 10/08/2017 Level of Service Type of Service Level of Care Type of Care INPATIENT/HLOC Mental Health Inpatient Inpatient [facility] - Inpatient Hospital Reason Code P76 Provider Name & Address Provider ID Provider Alternate ID NPI # for Authorization ANY NYE [id number] N/A [address] [facility] [id number] Message
[2017-10-08 19:32] VITALS: BP 141/84
[2017-10-09 08:10] VITALS: BP 141/74
--- NOTE | 2017-10-09 08:15 | SOCIAL WORKER PROG NOTE PSYCH ---
Social Work Progress Note Progress Note Called [facility] to resume services for Fermin. Requested that he be seen today. I was told that they would put the request in to the supervisory historian, but it was not guarenteed. I told them that he needed his new medication set up today in his med box so there was no confusion as to what he was taking. Fermin showered this morning and was getting his room ready to leave. I updated him on the [facility] possibly seeing him today, but it could be tomorrow. Let him know that Cesar would need to picker packer meds with him at [facility] on the way home. I told him that I left Guerrero a message about going in his apartment when he returns. Asked if he was feeling safe to return? He said he had his concerns and that he would "bash heads" if there were any problems. I reiterated that the best way to handle a concern would be to call police or go to the ER. Asked if he would feel better if Cesar checked out his apartment? He said yes. I asked if he felt ready to return home today? He said he didn't see what would be different in another day or so. Cesar arrived at 10am. Reviewed d/c information with him. He said he would go into Fermin's apartment with him.
--- NOTE | 2017-10-09 08:28 | Patient Discharge Instructions ---
Psych Discharge Inst General Discharge Information Reason for Admission: Fermin was fearful for his life at his apartment,, he thought that some people were trying to poison him Psy Discharge Primary Diag+ Unspecified Psychotic Dis Psy Discharge Secondary Diag+ Traumatic Brain Injury Summary Tests/Major Procedures Lab Cholesterol 170 MG/DL 10/03/17 0551 Cholesterol/HDL Ratio 3 % 10/03/17 0551 HDL Cholesterol 53 mg/dL 10/03/17 0551 Hemoglobin A1c 5.6 % 10/03/17 0551 LDL Cholesterol, Calc 94 mg/dL 10/03/17 0551 Triglycerides 115 mg/dL 10/03/17 0551 Studies Pending at DC: none Patient Instructions Contact Information Your Psychiatrist on [facility] was Uzma GONSALEZ,Rocky * If you are experiencing an emergency related to this hospitalization, please call [phone] to contact the treating psychiatrist or the psychiatrist-on- call. * To Request a copy of your medical records, please contact the Medical Records Department at [phone]. * To request results of studies pending at the time of discharge, please call [phone]. * Continue your Medications until directed to stop by your Healthcare provider. General Medication Information Please continue to take your new medications and your continued home medications , unless otherwise indicated on your discharge medication list, or unless directed by your MD or SENIOR IT ENGINEER to stop them. Special Instructions Diet Regular Activity Normal - Tobacco Use Treatment Offered Post DC Medications Offered: Refused Tob Medication Tx Post DC Tobacco Treatment Plan: Refused Tobacco Tx Pgm - EtOH/Drug Use D/O Treatment Offered Post DC Medications Offered: Med Not Indicated for D/O Post DC EtOH/SubAbuse TX Plan: Other SubAbuse/Dual Pgm Metabolic Screening Patient on a neuroleptic(s) . Enter below results for Hemoglobin A1C, and lipid panel if obtained during the last 365 days. BMI: 34.800 Blood Pressure: 141/74 Laboratory Results From [facility] (If applicable): Lab Cholesterol 170 MG/DL 10/03/17 0551 Cholesterol/HDL Ratio 3 % 10/03/17 0551 HDL Cholesterol 53 mg/dL 10/03/17 0551 Hemoglobin A1c 5.6 % 10/03/17 0551 LDL Cholesterol, Calc 94 mg/dL 10/03/17 0551 Triglycerides 115 mg/dL 10/03/17 0551 Advance Directives Does the Patient have Medical Advance Directives No/Refused further info Does Pt have Psychiatric Advance Directives? No/Refused further info Does Patient have a Designated Surrogate Decision Maker: No Information About Psychiatric Advance Directives Provided? Refused Discharge Plan Post Hospital Treatment Plan: Care IOP/Dual
[2017-10-09] MEDS ORDERED: CEPHALEXIN500 M3 PO (08:34)
[2017-10-09] MEDS ORDERED: CYCLOBENZAPRINE10 M1 PO (08:34)
[2017-10-09] MEDS ORDERED: METOPROLOL TART50 M1 PO (08:34)
[2017-10-09] MEDS ORDERED: SULFAMETHOXAZO1 EAC1 PO (08:34)
[2017-10-09] MEDS ORDERED: NORCO 5-325 TA1 EACH PO (08:38)
[2017-10-09] MEDS ORDERED: NORVASC10 M1 PO (08:38)
[2017-10-09] MEDS ORDERED: DIVALPROEX SOD500 M3 PO (08:38)
[2017-10-09] MEDS ORDERED: NEURONTIN600 M1 PO (08:38)
[2017-10-09] MEDS ORDERED: HALOPERIDOL5 MG PO (08:42)
[2017-10-09] MEDS ORDERED: HALOPERIDOL2 M1 PO (08:42)
--- NOTE | 2017-10-09 10:25 | SOCIAL WORKER PROG NOTE PSYCH ---
Social Work Progress Note Faxed Referral(s) 1 Referred To: [facility] Transition of Care Documents sent: Health Summary, W10 Faxed to: [facility] Fax #: [phone] Faxed by: Maite Gaytan Date faxed: 10/09/17 Time Faxed: [phone] Faxed Referral(s) 2 Referred To: Care Transition of Care Documents sent: Health Summary, W10 Faxed to: [facility] Fax #: [phone] Faxed by: Maite Gaytan Date faxed: 10/09/17 Time Faxed: [phone]
--- NOTE | 2017-10-09 13:55 | DISCHARGE SUMMARY REPORT-PSYCH ---
Visit Information Visit Dates/Diagnosis' Admission Date: 10/01/17 Discharge Date: 10/09/17 Reason for Admission: Fermin was fearful for his life at his apartment,, he thought that some people were trying to poison him Psy Discharge Primary Diag: Unspecified Psychotic Dis Psy Discharge Secondary Diag: Traumatic Brain Injury Hospital Course Course Allergies: Coded Allergies: phenytoin (From DILANTIN) (Severe, MIGRAINES 09/06/17) Discharge HBIPS - Tobacco Use Treatment Offered - EtOH/Drug Use D/O Treatment Offered Metabolic Screening - Screen if on a Neuroleptic Medication - Metabolic screening should include: - Blood Pressure, BMI, Glucose or Hgb A1c, & a - Lipid profile from within the past 365 days. Discharge Instructions General Discharge Information Multiple Neuroleptics: Not Applicable Discharge Diet Regular Discharge Activity Normal Referrals Ordered Referrals Provider Referral 10/09/17 For Groups: [[facility]] [facility] Vis[facility] Nurse for weekly monitoring of medication set up and visits 2x's a week. Requested services to resume on 10/09/17 CARE 10/10/17 [address] [facility], [place] [address] Care intake 10/10/17 12:30pm for IOP (mental health and substance use) [address] [place] [address] Provider Referral 10/10/17 For Groups: Outpatient Psychiatry [facility] 10/10/17 4pm [address] [place] [address] Prescriptions Stop taking the following medications: Metoprolol Tartrate (Metoprolol Tartrate) 100 MG TABLET ORAL TWICE DAILY Qty = 180 Gabapentin (Neurontin) 300 MG CAPSULE ORAL TWICE DAILY Qty = 30 Pantoprazole Sodium (Pantoprazole Sodium) 20 MG TABLET.DR ORAL DAILY Qty = 30 Folic Acid (Folic Acid) 1 MG TABLET ORAL DAILY Qty = 30 Prednisone (Prednisone) 20 MG TABLET ORAL TWICE DAILY Qty = 10 Doxycycline Hyclate (Doxycycline Hyclate) 100 MG CAPSULE ORAL TWICE DAILY Qty = 14 Cyclobenzaprine HCl (Cyclobenzaprine HCl) 10 MG TABLET ORAL THREE TIMES DAILY Qty = 30 Meloxicam (Meloxicam) 15 MG TABLET ORAL DAILY Qty = 30 Divalproex Sodium (Depakote ER) 250 MG TAB.ER.24H ORAL Every night Qty = 60 Doxycycline Hyclate (Doxycycline Hyclate) 100 MG CAPSULE ORAL TWICE DAILY Qty = 20 Ibuprofen (Ibuprofen) 600 MG TABLET ORAL EVERY SIX HOURS NEEDED as needed for pain Qty = 30 Continue taking these medications: Amlodipine Besylate (Norvasc) 10 MG TABLET 1 Tablet ORAL DAILY Qty = 30 Comments: Last Taken:10/09/17 Time:8AM This prescription has been renewed Hydrocodone/Acetaminophen ([place] 5-325 Tablet) 5 MG-325 MG TABLET 1-2 Tablet ORAL EVERY 4-6 HOURS NEEDED as needed for severe pain Qty = 15 Comments: Last Taken:10/07/17 Time:3PM This prescription has been renewed Divalproex Sodium (Divalproex Sodium ER) 500 MG TAB.ER.24H 4 Tablet ORAL DAILY Qty = 90 Comments: Last Taken:TO START THIS DOSE UPON DISCHARGE Time:RECEIVED DEPAKOTE 1000MG AT 8AM ON 10/09/17 This prescription has been renewed Start taking the following new medications: Cephalexin (Cephalexin) 500 MG CAPSULE 500 Milligram ORAL EVERY SIX HOURS Qty = 30 No Refills Comments: Last Taken:10/09/17 Time:7AM Sulfamethoxazole/Trimethoprim (Sulfamethoxazole-Tmp Ds Tablet) 800 MG-160 MG TABLET 1 Tablet ORAL TWICE DAILY Qty = 14 No Refills Comments: Last Taken:10/09/17 Time:8AM Cyclobenzaprine HCl (Cyclobenzaprine HCl) 10 MG TABLET 10 Milligram ORAL EVERY 8 HOURS NEEDED as needed for neck pain Qty = 21 No Refills Comments: Last Taken:10/07/17 Time:3PM Metoprolol Tartrate (Metoprolol Tartrate) 50 MG TABLET 3 Tablet ORAL TWICE DAILY Qty = 90 No Refills Comments: Last Taken:10/09/17 Time:8AM Gabapentin (Neurontin) 600 MG TABLET 2 Tablet ORAL AT BEDTIME Qty = 30 Refills = 1 Comments: Last Taken:10/08/17 Time:8PM Haloperidol (Haloperidol) 5 MG TABLET 1 Tablet ORAL Every night Qty = 30 No Refills Comments: Last Taken:10/08/17 Time:8PM Haloperidol (Haloperidol) 2 MG TABLET 1 Tablet ORAL Every night Qty = 30 No Refills Comments: Last Taken:10/08/17 Time:8PM Studies Pending at Discharge none
--- NOTE | 2017-10-09 13:55 | CP SOUTH PROGRESS NOTE PSYCH ---
Psych (Inpt) Progress Note Progress Note Laboratory Tests 10/09 0637 Chemistry Total Bilirubin (0.2 - 1.3 mg/dL) 0.2 Direct Bilirubin (< 0.4 mg/dL) 0.2 AST (17 - 59 U/L) 25 ALT (21 - 72 U/L) 45 Alkaline Phosphatase (< 127 U/L) 56 Total Protein (6.3 - 8.2 g/dL) 6.2 L Albumin (3.5 - 5.0 g/dL) 3.2 L Toxicology Valproic Acid (50 - 120 ug/mL) 64.9 Vital Signs Date Time Temp Pulse Resp B/P B/P Pulse O2 O2 Flow FiO2 10/09 0810 97.6 69 141/74 10/09 0803 71 141/10/09 0803 71 14110/08 2044 99.0 71 18 141/10/08 1932 99.0 71 14110/08 1618 70 135/74 10/08 1536 92 121/67 Mental Status Examination: His delusions about 6 people trying to poison him at home are less solidified and now he thinks that it is possible that his mind may have been tripped playing tricks on him and that he may have been misinterpreting things or feeling paranoid. However he does have residual feelings that his life may be in danger at home and that he is ready to defend himself. He has no specific homicidal threats or trend or intent or plan towards any particular person, he did however say that he may have to use a baseball bat to defend himself if he feels that his life is in danger. Denied specific homicidal intent or plan. Other than the paranoid delusions he otherwise seems to be doing well and has not been having hallucinations on the unit. alert oriented to time, place, and person. He was calm and cooperative. He showed reduced psychomotor activity and constricted affect. His responses were a bit quicker. He continues to be in good behavioral control/no agitation. He agrees that he is somewhat depressed, however, he denied feeling hopeless or worthless, denied wishing , denied thinking of suicide, did not seem to be responding to internal stimuli, showed better attention/ concentration and information processing. Assessment: Fermin Wylie is a 56-year-old Single White Male who was admitted to the inpatient psychiatric unit at [facility] on 10/01/2017 because of what seemed to be extreme paranoia. The patient has significant history for traumatic brain injury and seizure disorder and neuroimaging showed encephalomalacia of the Left frontal lobe. Since his admission on 10/01/2017:, The patient has shown improvement in his thought process with less delusions nor hallucinations and good behavioral control. He has been compliant with medication and seems to be tolerating the medications well He is willing to continue his treatment with [facility] intensive outpatient program Discharge Diagnoses: Unspecified Psychotic Disorder (Rule out psychotic disorder due a combination medical conditions (possible infectious process, traumatic brain injury with frontal lobe encephalomalacia, and seizure disorder) Rule out Schizophrenia Treatment Plan Update: Discharge home to follow up with [facility] intensive outpatient program
== END 2017-10-09 10:15 | DRG 751 ==
LOC: ERH 22:25 → CP SOUTH 10-01 14:00 → ERHI 10-01 14:00 → ENTRNSPT 10-01 19:40 → EDTRNSPTSTS 10-01 19:47 → EDTRNSPT 10-01 19:47 → CMPTRNSPT 10-01 20:19 → CP SOUTH 10-01 20:33 → ENRESERV 10-01 23:59 → CP SOUTH 10-04 17:45
PROVIDERS: Internal Medicine; Pediatrics; Psychiatry & Neurology Psychiatry
DX: F23 Brief psychotic disorder (principal); Z87.820 Personal history of traumatic brain injury
CPT/HCPCS: 70551; 36415; 80307; 82436; 96372; G0463; G0480; J1200; J1630

== ENCOUNTER 2017-10-15 09:45 | Observation (INO) | payer OTHER ==
[~2017-10-15] VITALS: Ht 172.7 cm; Wt 101.2 kg
[~2017-10-15 09:45] MED LIST changes: +CEPHALEXIN500 M3 PO; +HALOPERIDOL2 M1 PO; +HALOPERIDOL5 MG PO; +METOPROLOL TART50 M1 PO; +NEURONTIN600 M1 PO; +SULFAMETHOXAZO1 EAC1 PO
[2017-10-15 12:16] LABS: ABSOLUTE BASOPHIL COUNT 0 /CUMM (0.0-0.2); ABSOLUTE EOSINOPHIL COUNT 0.1 /CUMM (0.0-0.7); ABSOLUTE GRANULOCYTE CT 3.3 /CUMM (1.4-6.5); ABSOLUTE MONOCYTE COUNT 0.8 /CUMM (0.10-0.60); BASOPHIL % 0.4 % (0.0-2.0); EOSINOPHIL % 1.7 % (0-5); GRANULOCYTE % 52.6 % (42.2-75.2); HEMATOCRIT 35.4 % (42-52); MEAN CORPUSCULAR HGB 34.1 PG (27.0-31.0); MEAN CORPUSCULAR HGB CONC 34.5 G/DL (33.0-37.0); MEAN CORPUSCULAR VOLUME 98.8 FL (80.0-94.0); MEAN PLATELET VOLUME 6.9 FL (7.4-10.4); PLATELET COUNT 379 /CUMM (130-400); RBC DISTRIBUTION WIDTH 13.6 % (11.5-14.5); RED BLOOD CELL CT 3.58 /CUMM (4.70-6.10); WHITE BLOOD CELL COUNT 6.2 /CUMM (4.8-10.8)
--- NOTE | 2017-10-15 12:20 | ED GENERAL ADULT ---
History of Present Illness General Chief Complaint: Seizure Stated Complaint: BIBA, WITNESSED SEIZURE Source: patient, EMS Exam Limitations: clinical condition, poor historian Vital Signs & Intake/Output Vital Signs & Intake/Output Vital Signs Date Time Temp Pulse Resp B/P B/P Pulse O2 O2 Flow FiO2 Mean Ox Delivery Rate 10/15 1331 97.9 62 18 170/91 99 Room Air Room Air 10/15 1127 Room Air 10/15 1011 96.3 64 20 132/80 96 Room Air Allergies Coded Allergies: phenytoin (From DILANTIN) (Severe, MIGRAINES 09/06/17) Reconcile Medications Amlodipine Besylate (Norvasc) 10 MG TABLET 1 TAB PO DAILY htn Cyclobenzaprine HCl 10 MG TABLET 10 MG PO Q8P PRN neck pain Divalproex Sodium (Divalproex Sodium ER) 500 MG TAB.ER.24H 4 TAB PO DAILY SEIZURES Gabapentin (Neurontin) 600 MG TABLET 2 TAB PO AT BEDTIME insomnia/anxiety Haloperidol 5 MG TABLET 1 TAB PO QPM part of 7 mg dose Haloperidol 2 MG TABLET 1 TAB PO QPM part of 7mg dose Hydrocodone/Acetaminophen ([place] 5-325 Tablet) 5 MG-325 MG TABLET 1-2 TAB PO Q4-6 PRN PRN severe pain Metoprolol Tartrate 50 MG TABLET 3 TAB PO BID high blood pressure Triage Note: PT BIBA S/P SEIZURE, H/O SAME. ARRIVES TO ED A/OX3, NO RECOLLECTION OF EVENTS. PT WAS SEEN BY BYSTANDER FALLING TO GROUND. PT NOTED WITH ABRASION TO BACK OF HEAD. HL TO LEFT HAND NOTED, PLACED BY EMS. Triage Nurses Notes Reviewed? yes Onset: Abrupt Duration: minute(s): Timing: recent history HPI: 10/15/17 12:15 PM 56-year-old male presents to the emergency department complaining of status post seizure. The patient states he had a history of seizure disorder and thinks he had a seizure today. This was witnessed by bystanders. He denies headache or other complaints. He has a past medical history of schizophrenia and alcohol abuse. Past History Travel History Traveled to [place] past 21 day No Medical History Any Pertinent Medical History? 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 No Review of Systems Review of Systems Constitutional: Denies: fever. EENTM: Denies: visual changes. Respiratory: Denies: short of breath. Cardiovascular: Denies: chest pain. GI: Denies: abdominal pain. Genitourinary: Reports: no symptoms. Musculoskeletal: Reports: no symptoms. Skin: Reports: no symptoms. Neurological/Psychological: Reports: see HPI. Hematologic/Endocrine: Reports: no symptoms. Immunologic/Allergic: Reports: no symptoms. Physical Exam Physical Exam General Appearance: well developed/nourished, alert, awake, anxious, mild distress Head: normal appearance Eyes: Bilateral: normal appearance, PERRL, EOMI. Ears, Nose, Throat: normal pharynx, normal ENT inspection Neck: normal inspection, supple, full range of motion Respiratory: normal breath sounds, chest non-tender Cardiovascular: regular rate/rhythm Peripheral Pulses: 4+ radial (R), 4+ radial (L) Gastrointestinal: soft, non-tender Back: normal range of motion Extremities: normal inspection, no edema Neurologic/Psych: no motor/sensory deficits, awake, alert, oriented x 3 Skin: intact, normal color, warm/dry Core Measures ACS in differential dx? No CVA/TIA Diagnosis: No Sepsis Present: No Sepsis Focused Exam Completed? No Progress Differential Diagnoses I considered the following diagnoses in my evaluation of the patient: [Into cranial bleed, skull fracture, alcohol withdrawal, epilepsy, adverse drug reaction] Plan of Care: Orders Procedure Date/time Status Heart Healthy Diet 10/[address] HEAD WO IV CONTRAST 10/15 1518 Active Patient Data 10/15 1449 Active EKG 10/[address] HEAD WO IV CONTRAST 10/[address] in observation 10/15 1442 Active ED Holding Orders 10/15 1442 Active Vital Signs 10/15 1442 Active Code Status 10/15 1442 Active Intake & Output 10/15 1340 Active Add-on Test (ER Only) 10/15 1220 Active ETHANOL 10/15 1202 Complete CIWA 10/15 1140 Active VALPROIC ACID 10/15 1140 Complete COMPREHENSIVE METABOLIC PANEL 10/15 1140 Complete CBC WITHOUT DIFFERENTIAL 10/15 1140 Complete Laboratory Tests 10/15/17 1202: Anion Gap 11, Estimated GFR > 60, BUN/Creatinine Ratio 14.4, Glucose 99, Calcium 9.3, Total Bilirubin 0.3, AST 56, ALT 93 H, Alkaline Phosphatase 63, Total Protein 6.9, Albumin 3.9, Globulin 3.0, Albumin/Globulin Ratio 1.3, CBC w Diff NO MAN DIFF REQ, RBC 3.58 L, MCV 98.8 H, MCH 34.1 H, MCHC 34.5, RDW 13.6, MPV 6.9 L, Gran % 52.6, Lymphocytes % 32.9, Monocytes % 12.4 H, Eosinophils % 1.7, Basophils % 0.4, Absolute Granulocytes 3.3, Absolute Lymphocytes 2.0, Absolute Monocytes 0.8 H, Absolute Eosinophils 0.1, Absolute Basophils 0, Valproic Acid 43.9 L, Serum Alcohol < 10.0 Initial ED EKG: none Departure Departure Disposition: STILL A PATIENT Condition: Stable Clinical Impression Primary Impression: Seizure Referrals: Fidelia GONSALEZ,Marycarmen Osborne (PCP/Family) Departure Forms: Customer Survey General Discharge Information Comments EKG - revealed normal sinus rhythm with nonspecific ST-T wave abnormality. Critical Care Note Critical Care Note Critical Care Time: non-applicable
--- NOTE | 2017-10-15 15:16 | History & Physical ---
Mckenzie Sevilla Christiano 10/15/17 1516: General Information and HPI MD Statement: I have seen and personally examined KATY REDMOND and documented this H&P. The patient is a 56 year old M who presented with a patient stated chief complaint of [seizure disorder]. Source of Information: patient, old records Exam Limitations: clinical condition, poor historian History of Present Illness: Mr. 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 Patient arrived AAO 3, however had no clear memory about events of the day, or unable to recall any part of the day prior to the seizure activity and does not know where he was or what he was doing immediate prior to the seizure event or since waking up, however patient appeared to be calm and cooperative in ER. He was cleared to be discharged home, however at bedside after removing the IV, patient will was witnessed to have a tonic seizure lasting approximately 30 seconds, and during the seizure patient become fully rigid, eyes open without any response. Postictal period lasted less than 5 minutes with the patient quickly becomes verbal and back to baseline. Decision was made to place patient in observation. Patient admitted that he missed the Depakote dose on Sunday, however was compliant with the current home dose of 2000 mg q. daily for Sunday and Sunday prior to this admission. During our clinical interaction, patient appeared to be AAO 3, however was dozing off intermittently during the conversation, however appeared to be cooperative and denies any particular discomfort at the moment. However of note, patient stated that he had episodes of bloody bowel movement at home and last one was this morning that he saw sathya blood in his stool, however he had no previous history of GI bleeding, and and he could not provide any additional details regarding this new onset of GI bleeding. Patient denied recent travel/sick contacts, fever/lightheadedness/diaphoresis/ night sweat/weight change/cough/SOB/Chest Pain/Palpitation/Abdominal pain/ urinary abnormality, or other skin/musculoskeletal/neurological/mood disorders, or dietary/appetite change. Allergies/Medications Allergies: Coded Allergies: phenytoin (From DILANTIN) (Severe, MIGRAINES 09/06/17) Home Med list Amlodipine Besylate (Norvasc) 10 MG TABLET 1 TAB PO DAILY htn Cyclobenzaprine HCl 10 MG TABLET 10 MG PO Q8P PRN neck pain Divalproex Sodium (Divalproex Sodium ER) 500 MG TAB.ER.24H 4 TAB PO DAILY SEIZURES Gabapentin (Neurontin) 600 MG TABLET 2 TAB PO AT BEDTIME insomnia/anxiety Haloperidol 5 MG TABLET 1 TAB PO QPM part of 7 mg dose Haloperidol 2 MG TABLET 1 TAB PO QPM part of 7mg dose Hydrocodone/Acetaminophen ([place] 5-325 Tablet) 5 MG-325 MG TABLET 1-2 TAB PO Q4-6 PRN PRN severe pain Metoprolol Tartrate 50 MG TABLET 3 TAB PO BID high blood pressure Past History Travel History Traveled to [place] past 21 day No Medical History Neurological: migraine, seizure, tbi MIGRAINES EENT: SINUS INFECTIONS MCDONALD PUFFY TUMOR Cardiovascular: hypertension Respiratory: COPD Gastrointestinal: GERD Hepatic: NONE Renal: NONE Musculoskeletal: chronic back pain, falls Psychiatric: alcohol dependence, depression Endocrine: NONE Blood Disorders: NONE 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 self Services at Home: None Primary Language: [place] Verdean ETOH Use: heavy use Illicit Drug Use: denies illicit drug use Functional Ability ADLs Independent: dressing, eating, toileting, bathing. Ambulation: independent Review of Systems Review of Systems Constitutional: Reports: see HPI. Exam & Diagnostic Data Last 24 Hrs of Vital Signs/I&O Vital Signs Date Time Temp Pulse Resp B/P B/P Pulse O2 O2 Flow FiO2 Mean Ox Delivery Rate 10/15 1331 97.9 62 18 170/91 99 Room Air Room Air 10/15 1127 Room Air 10/15 1011 96.3 64 20 132/80 96 Room Air Intake & Output 10/15 1600 10/15 0800 10/15 0000 Intake Total 120 Output Total 400 Balance -280 Intake, Oral 120 Output, Urine 400 Patient 106.594 kg Weight Weight Estimated Measurement Method Physical Exam General Appearance Alert, Oriented X3, Cooperative, No Acute Distress Skin No Rashes, No Breakdown, No Significant Lesion Skin Temp/Moisture Exam: Warm/Dry Sepsis Skin Exam (color): Normal for Ethnicity HEENT PERRLA, EOMI, Abrasion at back of head from seizure/fell, chronic small skin lesion on forehead, appeared not inflammed/discharge/purulent Neck Supple, No JVD Cardiovascular Regular Rate Lungs Clear to Auscultation, Normal Air Movement Abdomen Normal Bowel Sounds, Soft, No Tenderness Neurological Strength at 5/5 X4 Ext, Normal Tone, Sensation Intact, dozed off intermittently during clinical interaction Extremities No Cyanosis, No Edema, Normal Pulses Last 24 Hrs of Labs/Talha: Laboratory Tests 10/15/17 1202: Anion Gap 11, Estimated GFR > 60, BUN/Creatinine Ratio 14.4, Glucose 99, Calcium 9.3, Total Bilirubin 0.3, AST 56, ALT 93 H, Alkaline Phosphatase 63, Total Protein 6.9, Albumin 3.9, Globulin 3.0, Albumin/Globulin Ratio 1.3, CBC w Diff NO MAN DIFF REQ, RBC 3.58 L, MCV 98.8 H, MCH 34.1 H, MCHC 34.5, RDW 13.6, MPV 6.9 L, Gran % 52.6, Lymphocytes % 32.9, Monocytes % 12.4 H, Eosinophils % 1.7, Basophils % 0.4, Absolute Granulocytes 3.3, Absolute Lymphocytes 2.0, Absolute Monocytes 0.8 H, Absolute Eosinophils 0.1, Absolute Basophils 0, Valproic Acid 43.9 L, Serum Alcohol < 10.0 Assessment/Plan Assessment: On admission, Vitals: Stable afebrile, vital signs stable -CBC: No leukocytosis, H/H stable 12.2/45.4 at his baseline -BMP: Unremarkable except mild elevation of ALT 93, -Misc: Subtherapeutic Depakote level 43.9, serum alcohol -ve -Head CT: There are chronic changes of an old healed frontal bone fracture with involvement of anterior skull base and there is chronic posttraumatic encephalomalacia primarily involving the undersurface of left frontal lobe. Grossly no evidence of acute territorial infarct or hemorrhage. -EKG: NSR w/o significant ST-T abnormalities. -Interventions in ER: Keppra 500 IV 1, Depakote 250 mg p.o. 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 We will continue this dose pending further neurological recommendations. additional 500 mg Keppra and night as a loading dose, and will continue the Depakote dose in the morning. DVT prophylaxis Pharm PPX + ALPS Regular Diet IV Access: Peripheral IV Full Code As Ranked By This Provider Problem List: 1. Seizure Core Measures/Misc (12/31) Acute Coronary Syndrome ACS Diagnosis: No Congestive Heart Failure Congestive Heart Failure Diagnosis No Cerebrovascular Accident CVA/TIA Diagnosis: No VTE (View Protocol) VTE Risk Factors Age>40 No Mechanical VTE Prophylaxis d/t N/A MechProphylax Ordered No VTE Pharm Prophylaxis d/t NA PharmProphylax ordered Sepsis (View protocol) Sepsis Present: No If YES complete Sepsis Event Note If YES complete Sepsis Event Note Desiree Valencia 10/15/17 1517: Core Measures/Misc (12/31) Sepsis (View protocol) If YES complete Sepsis Event Note If YES complete Sepsis Event Note Attending MD Review Statement Attending Statement Attending MD Statement: examined this patient, discuss w/resident/PA/PECAN CLEANER, agreed w/resident/PA/PECAN CLEANER, discussed with family, reviewed EMR data (avail), discussed with nursing, discussed with case mgmt, reviewed images, amended to note Attending Assessment/Plan: 56 o/m with PMH as above comes with witnessed seizure. Afebrile. He is placed on observation status for breakthrough seizure. Consult neurology for AED. Obtain CT head if not done in ER. He is on depakote. F/u Depakote level. GI/dvt prophylaxis full code. Encourage compliance.
--- NOTE | 2017-10-15 15:23 | CT SCAN REPORT ---
EXAMINATION: CT HEAD WITHOUT CONTRAST CLINICAL INFORMATION: Seizure. Head injury. COMPARISON: CT scan of the head 08/02/2017 he, brain MRI 10/06/2017. TECHNIQUE: Contiguous axial imaging was performed from the skull base to vertex without intravenous administration of contrast. DLP: 724.16 mGy-cm FINDINGS: There are chronic changes related to an old healed frontal bone fracture with involvement of the anterior skull base. There is gliosis and encephalomalacia in primarily involving the undersurface of the left frontal lobe and right occipital lobe resulting in asymmetric ex vacuo expansion of the frontal horn of left lateral ventricle. There is no acute hemorrhage or abnormal extra-axial collection. No intracranial mass effect midline shift. Lateral and third ventricles are proportionate to the subarachnoid spaces. No hydrocephalus. The mastoid air cells and middle ear cavities are well-aerated. No acute osseous finding. 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 Grossly no evidence of acute territorial infarct or hemorrhage.
[2017-10-15 20:00] VITALS: BP 130/80
[2017-10-15 22:00] VITALS: BP 130/82
[2017-10-16 06:42] VITALS: BP 129/86
--- NOTE | 2017-10-16 07:26 | PN- Housestaff ---
Kirk Martin 10/16/17 0726: Subjective Follow-up For: Seizure Desiree Valencia 10/16/17 1118: Attending MD Review Statement Attending Statement Attending MD Statement: examined this patient, discuss w/resident/PA/TANK TESTER, agreed w/resident/PA/TANK TESTER, discussed with family, reviewed EMR data (avail), discussed with nursing, discussed with case mgmt, reviewed images, amended to note Attending Assessment/Plan: 56 o/m with PMH as above comes with witnessed seizure. Consulted neurology on phone for AED. CT head with no acute abnormality. Low depakote level on presentation. Resume home doses of AED. Follow up with neurologist as outpatinet in 1-2 weeks of discharge. Also consider EEG as outpatient. Anticipate discharge soon.
[2017-10-16 08:21] VITALS: BP 144/90
[2017-10-16 09:38] LABS: ABSOLUTE BASOPHIL COUNT 0 /CUMM (0.0-0.2); ABSOLUTE EOSINOPHIL COUNT 0.2 /CUMM (0.0-0.7); ABSOLUTE GRANULOCYTE CT 3.3 /CUMM (1.4-6.5); ABSOLUTE LYMPH COUNT 1.7 /CUMM (1.2-3.4); ABSOLUTE MONOCYTE COUNT 0.5 /CUMM (0.10-0.60); BASOPHIL % 0.7 % (0.0-2.0); EOSINOPHIL % 2.9 % (0-5); GRANULOCYTE % 57.9 % (42.2-75.2); HEMATOCRIT 36.6 % (42-52); MEAN CORPUSCULAR HGB 34.5 PG (27.0-31.0); MEAN CORPUSCULAR HGB CONC 34.5 G/DL (33.0-37.0); MEAN CORPUSCULAR VOLUME 100.2 FL (80.0-94.0); MEAN PLATELET VOLUME 7.7 FL (7.4-10.4); PLATELET COUNT 361 /CUMM (130-400); RBC DISTRIBUTION WIDTH 13.9 % (11.5-14.5); RED BLOOD CELL CT 3.66 /CUMM (4.70-6.10); WHITE BLOOD CELL COUNT 5.7 /CUMM (4.8-10.8)
--- NOTE | 2017-10-16 11:32 | Patient Discharge Instructions ---
Discharge Instructions General Discharge Information Special Instructions: - Please follow up with your neurologist Dr. Del Rio for further evaluation of your seizure activity. - Please follow up with your primary care physician within 1-2 weeks of discharge. Inform your primary care physician of this admission to [facility]. - Continue your current medications per discharge instructions. - Please watch for these problems: Fever, Chills, Nausea, Vomiting, Shortness of Breath, Productive Cough, Chest Pain/Discomfort, Abdominal Pain, Active Bleeding or Bloody urine/stool. Diet Continue normal diet: Yes Activity Full Activity/No Limits: Yes Acute Coronary Syndrome Inclusion Criteria At DC or during hospital stay patient has or had the following: ACS DIAGNOSIS No Discharge Core Measures Meds if any: Prescribed or Continued at Discharge Meds if any: NOT Prescribed or Continued at Discharge Congestive Heart Failure Inclusion Criteria At DC or during hospital stay patient has or had the following: CHF DIAGNOSIS No Discharge Core Measures Meds if any: Prescribed or Continued at Discharge Meds if any: NOT Prescribed or Continued at Discharge Cerebrovascular accident Inclusion Criteria At DC or during hospital stay patient has or had the following: CVA/TIA Diagnosis No Discharge Core Measures Meds if any: Prescribed or Continued at Discharge Meds if any: NOT Prescribed or Continued at Discharge Venous thromboembolism Inclusion Criteria VTE Diagnosis No VTE Type NONE VTE Confirmed by (Test) NONE Discharge Core Measures - Per Current guidelines, there needs to be overlap - treatment for the first 5 days of Warfarin therapy. - If discharged on Warfarin prior to 5 days of - overlap therapy, the patient will need to be - assessed for post discharge needs including - *Post discharge parental anticoagulation - *Warfarin and/or parental anticoagulation education - *Follow up date to check INR post discharge At least 5 days overlap therapy as Inpatient No Meds if any: Prescribed or Continued at Discharge Note: Overlap Therapy is Warfarin and Anticoagulant Meds if any: NOT Prescribed or Continued at Discharge
--- NOTE | 2017-10-17 14:14 | Discharge Summary ---
See Addendum Visit Information Visit Dates Admission Date: 10/15/17 Discharge Date: 10/16/17 Hospital Course Course Attending Physician: Desiree Valencia MD Primary Care Physician: Marycarmen Mistry MD Hospital Course: Mr. 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 Patient arrived AAO 3, however had no clear memory about events of the day, or unable to recall any part of the day prior to the seizure activity and does not know where he was or what he was doing immediate prior to the seizure event or since waking up, however patient appeared to be calm and cooperative in ER. He was cleared to be discharged home, however at bedside after removing the IV, patient will was witnessed to have a tonic seizure lasting approximately 30 seconds, and during the seizure patient become fully rigid, eyes open without any response. Postictal period lasted less than 5 minutes with the patient quickly becomes verbal and back to baseline. Decision was made to place patient in observation. Patient admitted that he missed the Depakote dose on Sunday, however was compliant with the current home dose of 2000 mg q. daily for Sunday and Sunday prior to this admission. In the emergency department, patient vitals were temperature 97.9, pulse 62, respiratory rate 18, blood pressure 170/91, pulse ox 99% on room air. There is no leukocytosis on labs. Patient was subtherapeutic on Depakote level at 43.9. Serum alcohol was negative. Patient was not hypoglycemic. Noncontrast head CT showed no hemorrhage. EKG was sinus rhythm without significant ST T-wave abnormalities. He was loaded with Keppra 500 mg IV 1 given Depakote 250 mg p.o. 1, and admitted to the general medicine floors. On general medicine floor as per phone consult with Dr. Marroquin, patient was laid with an additional 500 mg Keppra loading dose and Depakote was continued in the morning. Patient became agitated demanding to be discharged. Patient is medically stable to be discharged, as there is no seizure-like activity overnight. Patient promised to follow-up his home neurologist Dr. VELARDE and was given a prescription for an outpatient EEG. Neurology was agreeable to discharge as well. Patient was instructed on the importance of taking his medications as prescribed, and was also instructed on return precautions. Allergies: Coded Allergies: phenytoin (From DILANTIN) (Severe, MIGRAINES 09/06/17) Disposition Summary Disposition Principal Diagnosis: Seizure Additional Diagnosis: Medication noncompliance Discharge Disposition: home or self care Discharge Instructions General Discharge Information Code Status: Full Code Patient's Diet: As tolerated Patient's Activity: As tolerated Follow-Up Instructions/Appts: - Please follow up with your primary care physician within 1-2 weeks of discharge. Inform your primary care physician of this admission to [facility]. -Please follow-up with your neurologist. Please also be sure to schedule the outpatient EEG appointment. - Continue your current medications per discharge instructions. - Please watch for these problems: Fever, Chills, Nausea, Vomiting, Shortness of Breath, Productive Cough, Chest Pain/Discomfort, Abdominal Pain, Active Bleeding or Bloody urine/stool. Medications at Discharge Discharge Medications: Continue taking these medications: Cyclobenzaprine HCl (Cyclobenzaprine HCl) 10 MG TABLET 10 Milligram ORAL EVERY 8 HOURS NEEDED as needed for neck pain Qty = 21 Comments: NOT GIVEN IN HOSPITAL Metoprolol Tartrate (Metoprolol Tartrate) 50 MG TABLET 3 Tablet ORAL TWICE DAILY Qty = 90 Comments: Last Taken: 10/16/17 Time:0830AM Amlodipine Besylate (Norvasc) 10 MG TABLET 1 Tablet ORAL DAILY Qty = 30 Comments: Last Taken: 10/16/17 Time: 0830AM Hydrocodone/Acetaminophen ([place] 5-325 Tablet) 5 MG-325 MG TABLET 1-2 Tablet ORAL EVERY 4-6 HOURS NEEDED as needed for severe pain Qty = 15 Comments: NOT GIVEN IN HOSPITAL Divalproex Sodium (Divalproex Sodium ER) 500 MG TAB.ER.24H 4 Tablet ORAL DAILY Qty = 90 Comments: Last Taken: 10/16/17 Time: 0820AM Gabapentin (Neurontin) 600 MG TABLET 2 Tablet ORAL AT BEDTIME Qty = 30 Comments: Last Taken: 10/15/17 Time: 2200PM Haloperidol (Haloperidol) 5 MG TABLET 1 Tablet ORAL Every night Qty = 30 Comments: NOT GIVEN IN HOSPITAL Haloperidol (Haloperidol) 2 MG TABLET 1 Tablet ORAL Every night Qty = 30 Comments: NOT GIVEN IN HOSPITAL Copies To: Wilbur Vasquez
== END 2017-10-16 13:13 ==
LOC: ERH 09:45 → 2NB 14:42 → ERHI 14:42 → CANRESERV 18:59 → ENRESERV 18:59 → ENTRNSPT 19:53 → EDTRNSPTSTS 19:56 → 2NB 20:07 → CMPTRNSPT 20:15 → ENPENDDIS 10-16 13:06 → 2NB 10-16 13:13
PROVIDERS: Emergency Medicine
DX: R56.9 Unspecified convulsions (principal); F10.20 Alcohol dependence, uncomplicated; G43.909 Migraine, unspecified, not intractable, without status migrainosus; J44.9 Chronic obstructive pulmonary disease, unspecified; K21.9 Gastro-esophageal reflux disease without esophagitis; F32.9 Major depressive disorder, single episode, unspecified; Z87.820 Personal history of traumatic brain injury; Z86.14 Personal history of Methicillin resistant Staphylococcus aureus infection; I10 Essential (primary) hypertension; Z91.14 Patient's other noncompliance with medication regimen; J32.8 Other chronic sinusitis; Z91.81 History of falling
CPT/HCPCS: 6040; 36592; 80307; 82436; 93005; 93010; 96372; 96374; 96376; G0378; G0480; J1650; J1953